=== PATIENT | male | born 1950 | race Caucasian/White ===

== ENCOUNTER → 2017-07-30 13:56 | Outpatient (POV) | payer MEDICARE, SELFPAY | PROVIDERS: PCP Family Medicine; Visit Provider Internal Medicine | DX: Z00.00 Encounter for general adult medical examination without abnormal findings (principal) ==

== ENCOUNTER → 2018-01-07 14:51 | Outpatient (POV) | payer MEDICARE, SELFPAY | PROVIDERS: PCP Family Medicine; Visit Provider Internal Medicine | DX: Z00.00 Encounter for general adult medical examination without abnormal findings (principal) ==

== ENCOUNTER → 2018-01-15 13:01 | Outpatient (CLI) | payer MEDICARE, SELFPAY ==
--- NOTE | 2018-01-15 | US_ITS ---
US Arterial Ankle Brachial Ind HISTORY: Claudication, diabetes, hypertension, short of breath, previous smoker. Bilateral claudication. No rest pain. TECHNIQUE: Segmental pressures obtained of both right and left leg. These are compared to brachial blood pressure to yield index at each level sampled including summary ISIDRO. The data sheets from the procedure are available in PACS FINDINGS Rest study only performed today No prior studies available for comparison. Blood pressures reported are in millimeters mercury. ========= RIGHT LEG ISIDRO = 1.0. RIGHT TBI = 1.2 Brachial BP: 131 Thigh BP: BP 137. Index 1.05 Calf BP: BP 131 with index 1.0 Ankle PT: BP 135 with index 1.03 Ankle DP : BP 138 with index 1.05 Digit =BP 160 with index 1.24 ========= LEFT LEG ISIDRO = 1.1 Left TBI = 1.0 Brachial BPD: 128 Thigh BP: BP 136 with index 1.04 Calf BP: AP 123 with index 0.94 Ankle PT:BP 139 with index 1.06 Ankle DP: BP 142 with index 1.08 Digit = BP 1:30 with index 0.99 Pulses and waveforms: Normal bilateral IMPRESSION: Pulses and waveforms: Normal bilateral RIGHT LEG ISIDRO = 1.0. Right TBI = 1.2 LEFT LEG ISIDRO = 1.1 Left TBI = 1.0
--- NOTE | 2018-01-15 | CA_ITS ---
PROCEDURE: 2-D M-mode and color Doppler study INDICATIONS FOR THE TEST: Chest pain COPDX Heart Murmur Tobacco Smoking Palpitations Fatigue Syncope Edema HypertensionXDiabetes MellitusX Rheumatic Fever SOBXDOEXObesityXHyperlipidemia Family History HD Additional History PHTN,CAD,АНДРЕЙ,ABN EKG TDS OBESITY/COPD PATIENT INFORMATION HEIGHT: 72 WEIGHT:284 GENDER: Male B/P:133/79 2-D/M-MODE INTERPRETATION: 2-D MEASUREMENTS OBSERVED VALUES IN CMS Right Ventricular Dimension (RVDd) 3.0 Interventricular Septum (Thickness)(IVsd) .8 Left Ventricular Internal Dimensions(LVIDd) 5.8 Left Ventricular Posterior Wall (Thickness)(LVPWd) .8 Aortic Root 4.0 Aortic Cusp Separation 2.0 Left Atrial Dimensions (LAD) 3.1 2D 1. Left atrium is qualitatively mildly enlarged, left ventricle is normal size, there is no concentric left ventricular hypertrophy, visually estimated ejection fraction 55% with no obvious regional wall motion abnormality. 2. The right atrium and right ventricle are mildly enlarged with normal contractility. 3. The aortic valve is thickened and calcified leaflet continue to display mobility. 4. The mitral and tricuspid valve leaflets are minimally thickened. 5. The pulmonic valve is poorly visualized. 6. No significant pericardial effusion noted. DOPPLER INTERROGATION: Doppler interrogation of the aortic, mitral and tricuspid valvular presence of mild mitral and tricuspid regurgitation, tricuspid and jet velocity is insufficient for acquisition of the right ventricular systolic pressure, grade 1 diastolic dysfunction seen without tissue Doppler evidence of raised left atrial pressure. CONCLUSION: 1. Mild biatrial enlargement, normal left ventricular size, visually estimated ejection fraction of 55% with no obvious regional wall motion abnormality, grade 1 diastolic dysfunction seen without tissue Doppler evidence of raised left atrial pressure. 2. Mildly enlarged right ventricle with normal contractility. 3. Mild mitral and tricuspid regurgitation. 4. No significant pericardial effusion noted.
--- NOTE | 2018-01-15 | AS_ITS ---
Arterial Exam Indications: Claudication 443.9. IMPRESSIONS 1. No evidence of arterial insufficiency at rest involving the left lower extremity 2. No evidence of arterial insufficiency at rest involving the right lower extremity Bilateral lower extremity arterial duplex. Duplex scan and ankle-brachial indices. Height: Height: 182.9cm. Height: 72in. Weight: Weight: 128.8kg. Weight: 283.4lb. Body mass index: BMI: 38.5kg/m^2. Body surface area: BSA: 2.61m^2. Location: Vascular laboratory. Patient status: Outpatient. Tables: Arterial flow: + +--------+--------+ + Location V sys V ed Flow analysis + +--------+--------+ + Right common femoral 112cm/s 17.3cm/s Triphasic + +--------+--------+ + Right deep femoral - proximal 54.5cm/s -------- Biphasic + +--------+--------+ + Right femoral - proximal 108cm/s 14.9cm/s Triphasic + +--------+--------+ + Right femoral - mid 93.5cm/s -------- Triphasic + +--------+--------+ + Right femoral - distal 96.6cm/s -------- Triphasic + +--------+--------+ + Right popliteal - proximal 52.2cm/s -------- Biphasic + +--------+--------+ + Right popliteal - distal 93.6cm/s -------- Biphasic + +--------+--------+ + Right posterior tibial - proximal 44cm/s -------- Biphasic + +--------+--------+ + Right posterior tibial - mid 107cm/s -------- Biphasic + +--------+--------+ + Right posterior tibial - distal 123cm/s 17.3cm/s Triphasic + +--------+--------+ + Right peroneal - mid 62.9cm/s 43.2cm/s Biphasic + +--------+--------+ + Right peroneal - distal 70.7cm/s -------- Biphasic + +--------+--------+ + Left common femoral 128cm/s 16.4cm/s Biphasic + +--------+--------+ + Left deep femoral - proximal 75.1cm/s -------- Biphasic + +--------+--------+ + Left femoral - proximal 90.8cm/s 14cm/s Biphasic + +--------+--------+ + Left femoral - mid 112cm/s -------- Biphasic + +--------+--------+ + Left femoral - distal 102cm/s -------- Biphasic + +--------+--------+ + Left popliteal - proximal 77.6cm/s -------- Biphasic + +--------+--------+ + Left popliteal - distal 81.5cm/s -------- Biphasic + +--------+--------+ + Left posterior tibial - proximal 57.6cm/s -------- Biphasic + +--------+--------+ + Left posterior tibial - mid 83.5cm/s -------- Biphasic + +--------+--------+ + Left posterior tibial - distal 91.3c
== END ==
PROVIDERS: PCP Family Medicine; Visit Provider Internal Medicine
DX: R06.02 Shortness of breath (principal); I73.9 Peripheral vascular disease, unspecified; M79.606 Pain in leg, unspecified; G47.30 Sleep apnea, unspecified
CPT/HCPCS: 93306; 93922; 93925

== ENCOUNTER 2018-02-11 08:40 | Outpatient (RCR) | payer MEDICARE, SELFPAY | END 2018-04-18 15:26 | disposition home or self-care (01) | LOC: PT 08:40 | PROVIDERS: PCP Family Medicine; Visit Provider Family Medicine | DX: J44.9 Chronic obstructive pulmonary disease, unspecified (principal); R06.00 Dyspnea, unspecified | CPT/HCPCS: G0424 ==

== ENCOUNTER → 2018-04-15 14:11 | Outpatient (POV) | payer MEDICARE, SELFPAY | PROVIDERS: PCP Family Medicine; Visit Provider Internal Medicine | DX: Z00.00 Encounter for general adult medical examination without abnormal findings (principal) ==

== ENCOUNTER → 2018-05-12 12:55 | Outpatient (CLI) | payer MEDICARE, SELFPAY ==
--- NOTE | 2018-05-12 12:57 | CT_ITS ---
CT lung screening EXAM: CT LUNG LOW DOSE WO CONTRAST HISTORY: 50 pack-year smoking history asymptomatic for lung cancer ITS.REASON: COPD, SOB, HX TOBACCO USE ORDERING PHYSICIAN: Michael Hurst MD PATIENT AGE: 68 years COMPARISON: 05/02/2017 TECHNIQUE: The exam was performed on a GE Light Speed [address] scanner using 2.90 mGy CTDI. A low dose helical CT CHEST was performed on a multi-detector scanner. All CT scans at the facility use one or more dose reduction, viz: automated exposure control, ma/kV adjustment per patient size (including targeted exams where dose is matched to indication, i.e. head), or iterative reconstruction technique. The LDCT was performed in a facility that meets the criteria for the screening program. Data regarding this exam was submitted to ACR which is an approved registry. The order for this exam indicates that it came as a result of a lung cancer screening counseling shard decision-making visit that included all the elements required of such a visit including smoking cessation. The radiologist interpreting this exam meets the CMS criteria for the LDCT lung cancer screening program. The exam is reported using the Lung-RADS classification scale and reported to the ACR registry. NOTE: This study was performed for the specific purposes of lung cancer screening and is not an alternative to diagnostic chest CT. RADIATION DOSE: CTDI vol(CT dose Index-volume) = 2.90mG DLP (Dose Length Product) = 108.38 mGcm FINDINGS: Mild centrilobular emphysematous changes are present. There is bilateral enlargement of the thyroid gland with narrowing of the trachea. The tracheal narrowing is slightly greater than when compared to the previous study. There is diffuse coronary artery calcification. There are a few scattered small nodular opacities which are calcified and are stable. A small parenchymal opacity is present in the right lung base at 5 mm unchanged IMPRESSION: 1. Lung RADS Category: 2, benign 2. Other findings: Enlarged thyroid gland with narrowing of the trachea slightly greater compared to the previous exam Coronary artery calcifications. Centrilobular emphysema RECOMMENDATIONS: 12 month LDCT follow-up
== END ==
PROVIDERS: PCP Family Medicine; Visit Provider Internal Medicine
DX: Z12.2 Encounter for screening for malignant neoplasm of respiratory organs (principal); Z87.891 Personal history of nicotine dependence

== ENCOUNTER → 2018-10-21 14:32 | Outpatient (POV) | payer MEDICARE, SELFPAY | PROVIDERS: Visit Provider Internal Medicine | DX: Z00.00 Encounter for general adult medical examination without abnormal findings (principal) ==

== ENCOUNTER → 2018-12-15 13:23 | Outpatient (CLI) | payer MEDICARE, SELFPAY ==
--- NOTE | 2018-12-15 13:34 | XR_ITS ---
EXAM: XR thoracic spine 3V HISTORY: Back pain ITS.REASON: LOW BACK PAIN Comparison: None FINDINGS: Normal alignment. No fracture or dislocation. There are mild degenerative changes in the midthoracic spine not significant changed from 11-17. IMPRESSION: Degenerative changes, no acute finding
--- NOTE | 2018-12-15 13:34 | XR_ITS ---
EXAM: XR lumbar spine min 4V HISTORY: ITS.REASON: LOW BACK PAIN ORDERING PHYSICIAN: Agus Moore MD PATIENT AGE: 68 years COMPARISON: None FINDINGS: Normal alignment. No fracture or dislocation. Osteophyte is present along the anterior aspect of L3-L4 incidental vascular calcifications. There are mild facet hypertrophic changes at L4-L5 and L5-S1. IMPRESSION: Degenerative changes, no acute finding.
== END ==
PROVIDERS: PCP Family Medicine; Visit Provider Family Medicine
DX: M54.6 Pain in thoracic spine (principal); M54.5 Low back pain
CPT/HCPCS: 72072; 72110

== ENCOUNTER → 2018-12-23 14:14 | Outpatient (POV) | payer MEDICARE, SELFPAY | PROVIDERS: Visit Provider Dermatology | DX: Z00.00 Encounter for general adult medical examination without abnormal findings (principal) ==

== ENCOUNTER → 2018-12-31 14:22 | Outpatient (CLI) | payer MEDICARE, SELFPAY ==
--- NOTE | 2018-12-31 14:23 | CA_ITS ---
PROCEDURE: 2-D M-mode and color Doppler study INDICATIONS FOR THE TEST: Chest pain COPD+ Heart Murmur Tobacco Smoking Palpitations Fatigue Syncope Edema+ Hypertension+Diabetes Mellitus+ Rheumatic Fever SOB+EWING+Obesity+Hyperlipidemia+ Family History HD Additional History PHTN, CAD, АНДРЕЙ, ABN EKG, GERD PATIENT INFORMATION HEIGHT: 72 WEIGHT:290 GENDER: Male B/P:104/62 2-D/M-MODE INTERPRETATION: 2-D MEASUREMENTS OBSERVED VALUES IN CMS Right Ventricular Dimension (RVDd) Interventricular Septum (Thickness)(IVsd) Left Ventricular Internal Dimensions(LVIDd) Left Ventricular Posterior Wall (Thickness)(LVPWd) Aortic Root 3.8 Aortic Cusp Separation 2.0 Left Atrial Dimensions (LAD) 3.6 2D 1. This is technically very difficult study because of the patient's factor and poor acoustic windows, repeat study with Definity contrast is recommended. 2. The left atrium is mildly enlarged, left ventricle is mildly dilated, visually estimated ejection fraction probably 40-45%, there appears to be moderate hypokinesis involving the basal septum inferior basal and posterior basal wall. A repeat study with Definity contrast is recommended for accurate assessment. 3. The right atrium and right ventricle are mildly enlarged with normal contractility. 4. The aortic valve is thickened and calcified leaflet continue to display mobility. 5. The pulmonic valve is poorly visualized. 6. No significant pericardial effusion noted. DOPPLER INTERROGATION: Doppler interrogation of the aortic, mitral and tricuspid valvular presence of mild mitral and tricuspid regurgitation, tricuspid regurgitation jet velocity is inadequate for acquisition of the right ventricular systolic pressure, diastolic parameters are inconclusive, inferior vena cava is not well visualized. CONCLUSION: 1. Technically very difficult study because of the patient's factors and poor acoustic windows, repeat study with definitely contrast is recommended. 2. Mildly enlarged left atrium, mildly dilated left ventricle, visually estimated ejection fraction probably 40-45%, with segmental wall motion abnormality described above, a repeat study with definitely contrast is recommended for accurate assessment. 3. Mild mitral and tricuspid regurgitation, tricuspid regurgitation jet velocity is inadequate for calculation of the right ventricular systolic pressure, diastolic parameters are inconclusive. 4. No significant pericardial effusion noted.
--- NOTE | 2018-12-31 14:23 | CI_ITS ---
Cerebrovascular Exam Indications: 785.9 Bruit. IMPRESSIONS 1. The bilateral vertebral arteries are patent with normal antegrade flow. 2. Study suggests less than 20% stenosis involving the right internal carotid artery and the left internal carotid artery. History: Coronary artery disease. Risk factors: Hypertension. Diabetes mellitus. Carotid duplex study. Complete study and Doppler flow study including spectral analysis, color and ball scale imaging. Location: Vascular laboratory. Patient status: Outpatient. Tables: Arterial flow: + +--------+--------+ Location V sys V ed + +--------+--------+ Right CCA - proximal 127cm/s 18.1cm/s + +--------+--------+ Right CCA - distal 106cm/s 20.4cm/s + +--------+--------+ Right ECA 167cm/s -------- + +--------+--------+ Right ICA - proximal 72.2cm/s 12.7cm/s + +--------+--------+ Right ICA - mid 51.5cm/s 13.7cm/s + +--------+--------+ Right ICA - distal 61.5cm/s 18.1cm/s + +--------+--------+ Right vertebral 48.9cm/s -------- + +--------+--------+ Left CCA - proximal 158cm/s 25.3cm/s + +--------+--------+ Left CCA - distal 123cm/s 24.4cm/s + +--------+--------+ Left ECA 108cm/s -------- + +--------+--------+ Left ICA - proximal 43.7cm/s 10cm/s + +--------+--------+ Left ICA - mid 73.2cm/s 19.6cm/s + +--------+--------+ Left ICA - distal 81.1cm/s 23.2cm/s + +--------+--------+ Left vertebral 64cm/s -------- + +--------+--------+ Velocity ratios: + + + + + + Right, V sys Right, V ed Left, V sys Left, V ed + + + + + + Max ICA/dist CCA 0.68 0.89 0.66 0.95 + + + + + + (Report amended ) Electronically signed by: cO Mckeon [id number]
== END ==
PROVIDERS: PCP Family Medicine; Visit Provider Physician Assistant
DX: I25.10 Atherosclerotic heart disease of native coronary artery without angina pectoris; R06.00 Dyspnea, unspecified; R09.89 Other specified symptoms and signs involving the circulatory and respiratory systems; E11.9 Type 2 diabetes mellitus without complications; E66.9 Obesity, unspecified; G47.33 Obstructive sleep apnea (adult) (pediatric); I10 Essential (primary) hypertension; I27.20 Pulmonary hypertension, unspecified; J44.9 Chronic obstructive pulmonary disease, unspecified; Z79.84 Long term (current) use of oral hypoglycemic drugs
CPT/HCPCS: 93306; 93880

== ENCOUNTER → 2019-01-08 13:42 | Outpatient (CLI) | payer MEDICARE, SELFPAY | PROVIDERS: Visit Provider Podiatrist | DX: L60.8 Other nail disorders (principal) | CPT/HCPCS: 87102; 87206; 87220 ==

== ENCOUNTER → 2019-02-02 09:58 | Outpatient (CLI) | payer MEDICARE, SELFPAY ==
[2019-02-02 10:40] VITALS: PULSE 78; PULSE 84
== END ==
PROVIDERS: PCP Family Medicine; Visit Provider Internal Medicine
DX: J44.9 Chronic obstructive pulmonary disease, unspecified (principal); R06.02 Shortness of breath
CPT/HCPCS: 94060; 94618; 94640; 94726; 94729

== ENCOUNTER → 2019-02-03 16:05 | Outpatient (POV) | payer MEDICARE, SELFPAY | PROVIDERS: Visit Provider Internal Medicine | DX: Z00.00 Encounter for general adult medical examination without abnormal findings (principal) ==

== ENCOUNTER 2019-03-13 18:56 | Observation (INO) ==
[2019-03-13 19:12] LABS: Basophils # 0.1 K/mm3 (0-0.2); Basophils % 0.7 % (0.1-2.0); Eosinophils # 0.2 K/mm3 (0.0-0.4); Eosinophils % 1.5 % (0.1-12.0); Hemoglobin 14.1 g/dL (14.1-18.0); Lymphocytes # 1.6 K/mm3 (0.7-4.5); Lymphocytes % 12.7 % (10-50); Mean Corpuscular HGB Conc 30.6 g/dL (31.8-35.4); Mean Corpuscular Volume 88.3 fl (80-94); Monocytes # 0.7 K/mm3 (0.1-1.0); Monocytes % 5.4 % (1.7-9.3); Neutrophils # 10.1 K/mm3 (1.8-7.8); Neutrophils % 79.7 % (37.0-80.0); Platelet Count 305 K/mm3 (142-424); Red Blood Count 5.21 M/mm3 (4.60-6.20); Red Cell Distribution Width 14.4 % (11.5-17.5); White Blood Count 12.6 K/mm3 (4.8-10.8)
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
[2019-03-13 19:26] LABS: Albumin Level 3.5 gm/dL (3.4-5.0); Albumin/Globulin Ratio 0.7 (1.1-1.8); Anion Gap 14.2 mEq/L (5-15); Bilirubin,Total 0.3 mg/dL (0.2-1.0); Calcium 9.6 mg/dL (8.5-10.1); Globulin 4.9 gm/dl (1.3-3.2); Total Protein,Serum 8.4 gm/dL (6.4-8.2)
[2019-03-13 20:22] LABS: Microscopic, Urine URINE MICROSCOPIC (MICROSCOPIC)
[2019-03-13 20:24] LABS: Appearance,Urine CLEAR (Clear); Bilirubin,Urine Negative (Negative); Blood, Urine Negative (Negative); Color,Urine YELLOW (Yellow); Glucose,Urine (UA) 3+ (Negative); Ketones,Urine Negative (Negative); Leukocyte Esterase,Urine Negative (Negative); Protein,Urine Negative (Negative); Urobilinogen,Urine 0.2 EU/dl (0.2)
[2019-03-13 20:27] LABS: Amorphous Sediment,Urine Trace /lpf; WBC,Urine Occasional #/hpf (0-3)
[2019-03-14 07:10] LABS: Basophils # 0.1 K/mm3 (0-0.2); Basophils % 0.6 % (0.1-2.0); Eosinophils # 0.2 K/mm3 (0.0-0.4); Eosinophils % 1.2 % (0.1-12.0); Hematocrit 41.4 % (42.0-52.0); Hemoglobin 12.8 g/dL (14.1-18.0); Lymphocytes # 1.5 K/mm3 (0.7-4.5); Lymphocytes % 12.8 % (10-50); Mean Corpuscular HGB Conc 30.9 g/dL (31.8-35.4); Mean Corpuscular Volume 89.6 fl (80-94); Mean Platelet Volume 8.2 fl (7.4-10.4); Monocytes # 1.5 K/mm3 (0.1-1.0); Neutrophils # 8.5 K/mm3 (1.8-7.8); Neutrophils % 72.3 % (37.0-80.0); Platelet Count 232 K/mm3 (142-424); Red Blood Count 4.62 M/mm3 (4.60-6.20); Red Cell Distribution Width 14.3 % (11.5-17.5); White Blood Count 11.8 K/mm3 (4.8-10.8)
[2019-03-14 07:18] LABS: Anion Gap 12.3 mEq/L (5-15); Calcium 8.7 mg/dL (8.5-10.1)
--- NOTE | 2019-03-14 09:06 | H&P/Discharge Summary ---
General - General Admission date:: 03/13/19 Discharge date: 03/14/19 [facility] History Medical History: Reports:: Chronic Obstructive Pulmonary Disease (COPD), Diabetes Mellitus Type 2, Gastroesophageal Reflux Disease(GERD), Hypertension Denies:: Cancer, Diabetes Mellitus Type 1, Internal Pacemaker, MRSA, Seizures *Have you ever received a pneumonia vaccine?: Yes *Have you received a flu vaccine this season?: Yes Laterality Cases: Right: Total Knee Replacement, Bilateral: Tonsillectomy Other Surgeries: Yes: Angiogram, Cardiac Catheterization, Hernia Repair. No: Pacemaker Amputation: No Fractures: No - *Social History Educational Level: Completed High School Smoking Status: Former smoker Tobacco Type: cigarettes # Packs/Day (cigarettes): 1 #Yrs smoked (if former smoker): 45 Alcohol Intake: never Alcohol Intake Frequency:: other Substance Use Type: denies use *Occupational Status:: retired Housing: house Household Members: spouse *Travel in the last 8 weeks: None Family Hx:: Diabetes, Hypertension Exam Vital signs and Labs for Last 24 Hours: Temp Pulse Resp BP Pulse Ox 97.7 F 73 18 124/78 94 L 03/14/19 08:00 03/14/19 08:00 03/14/19 08:00 03/14/19 08:00 03/14/19 08:00 Laboratory Results - last 24 hr 03/13/19 19:04: WBC 12.6 H, RBC 5.21, Hgb 14.1, Hct 46.0, MCV 88.3, MCH 27.0, MCHC 30.6 L, RDW 14.4, Plt Count 305, MPV 7.0 L, Neut % (Auto) 79.7, Lymph % (Auto) 12.7, Gray % (Auto) 5.4, Eos % (Auto) 1.5, Baso % (Auto) 0.7, Neut # (Auto) 10.1 H, Lymph # (Auto) 1.6, Gray # (Auto) 0.7, Eos # (Auto) 0.2, Baso # (Auto) 0.1 03/13/19 19:04: Sodium 134 L, Potassium 5.2 H, Chloride 98, Carbon Dioxide 27, Anion Gap 14.2, BUN 29 H, Creatinine 1.30, Estimated Creat Clear 97, Estimated GFR 55 L, Est GFR ( Amer) 66, Glucose 318 H, Calcium 9.6, Total Bilirubin 0.3, AST 39 H, ALT 51, Alkaline Phosphatase 73, Total Protein 8.4 H, Albumin 3.5, Globulin 4.9 H, Albumin/Globulin Ratio 0.7 L 03/13/19 19:25: Urine Color Yellow, Urine Appearance Clear, Urine pH 6.0, Ur Specific [place] 1.020, Urine Protein Negative, Urine Glucose (UA) 3+, Urine Ketones Negative, Urine Blood Negative, Urine Nitrate Negative, Urine Bilirubin Negative, Urine Urobilinogen 0.2, Ur Leukocyte Esterase Negative, Urine WBC Occasional, Amorphous Sediment Trace 03/13/19 22:52: POC Glucose 280 H 03/14/19 06:32: POC Glucose 323 H* 03/14/19 06:35: WBC 11.8 H, RBC 4.62, Hgb 12.8 L, Hct 41.4 L, MCV 89.6, MCH 27.7, MCHC 30.9 L, RDW 14.3, Plt Count 232, MPV 8.2, Neut % (Auto) 72.3, Lymph % (Auto) 12.8, Gray % (Auto) 13.0 H, Eos % (Auto) 1.2, Baso % (Auto) 0.6, Neut # (Auto) 8.5 H, Lymph # (Auto) 1.5, Gray # (Auto) 1.5 H, Eos # (Auto) 0.2, Baso # (Auto) 0.1 03/14/19 06:35: Sodium 133 L, Potassium 5.3 H, Chloride 99, Carbon Dioxide 27, Anion Gap 12.3, BUN 29 H, Creatinine 1.21, Estimated Creat Clear 103, Estimated GFR 59, Est GFR ( Amer) 72, Glucose 325 H, Calcium 8.7 I & O for Last 24 hours: Intake & Output 03/11/19 03/12/19 03/13/19 03/14/19 11:59 11:59 11:59 11:59 Intake Total 1027 / 1027 Output Total 550 / 550 Balance 477 / 477 Weight 281 lb 7 oz Results Labs on day of discharge: Labs from last 24 hours 03/14/19 03/14/19 03/14/19 06:35 06:35 06:32 WBC 11.8 H RBC 4.62 Hgb 12.8 L Hct 41.4 L MCV 89.6 MCH 27.7 MCHC 30.9 L RDW 14.3 Plt Count 232 MPV 8.2 Neut % (Auto) 72.3 Lymph % (Auto) 12.8 Gray % (Auto) 13.0 H Eos % (Auto) 1.2 Baso % (Auto) 0.6 Neut # (Auto) 8.5 H Lymph # (Auto) 1.5 Gray # (Auto) 1.5 H Eos # (Auto) 0.2 Baso # (Auto) 0.1 Sodium 133 L Potassium 5.3 H Chloride 99 Carbon Dioxide 27 Anion Gap 12.3 BUN 29 H Creatinine 1.21 Estimated Creat Clear 103 Estimated GFR 59 Est GFR ( Amer) 72 Glucose 325 H POC Glucose 323 H* Calcium 8.7 Total Bilirubin AST ALT Alkaline Phosphatase Total Protein Albumin Globulin Albumin/Globulin Ratio Urine Color Urine Appearance Urine pH Ur Specific [place] Urine Protein Urine Glucose (UA) Urine Ketones Urine Blood Urine Nitrate Urine Bilirubin Urine Urobilinogen Ur Leukocyte Esterase Urine WBC Amorphous Sediment 03/13/19 03/13/19 03/13/19 22:52 19:25 19:04 WBC RBC Hgb Hct MCV MCH MCHC RDW Plt Count MPV Neut % (Auto) Lymph % (Auto) Gray % (Auto) Eos % (Auto) Baso % (Auto) Neut # (Auto) Lymph # (Auto) Gray # (Auto) Eos # (Auto) Baso # (Auto) Sodium 134 L Potassium 5.2 H Chloride 98 Carbon Dioxide 27 Anion Gap 14.2 BUN 29 H Creatinine 1.30 Estimated Creat Clear 97 Estimated GFR 55 L Est GFR ( Amer) 66 Glucose 318 H POC Glucose 280 H Calcium 9.6 Total Bilirubin 0.3 AST 39 H ALT 51 Alkaline Phosphatase 73 Total Protein 8.4 H Albumin 3.5 Globulin 4.9 H Albumin/Globulin Ratio 0.7 L Urine Color Yellow Urine Appearance Clear Urine pH 6.0 Ur Specific [place] 1.020 Urine Protein Negative Urine Glucose (UA) 3+ Urine Ketones Negative Urine Blood Negative Urine Nitrate Negative Urine Bilirubin Negative Urine Urobilinogen 0.2 Ur Leukocyte Esterase Negative Urine WBC Occasional Amorphous Sediment Trace 03/13/19 19:04 WBC 12.6 H RBC 5.21 Hgb 14.1 Hct 46.0 MCV 88.3 MCH 27.0 MCHC 30.6 L RDW 14.4 Plt Count 305 MPV 7.0 L Neut % (Auto) 79.7 Lymph % (Auto) 12.7 Gray % (Auto) 5.4 Eos % (Auto) 1.5 Baso % (Auto) 0.7 Neut # (Auto) 10.1 H Lymph # (Auto) 1.6 Gray # (Auto) 0.7 Eos # (Auto) 0.2 Baso # (Auto) 0.1 Sodium Potassium Chloride Carbon Dioxide Anion Gap BUN Creatinine Estimated Creat Clear Estimated GFR Est GFR ( Amer) Glucose POC Glucose Calcium Total Bilirubin AST ALT Alkaline Phosphatase Total Protein Albumin Globulin Albumin/Globulin Ratio Urine Color Urine Appearance Urine pH Ur Specific [place] Urine Protein Urine Glucose (UA) Urine Ketones Urine Blood Urine Nitrate Urine Bilirubin Urine Urobilinogen Ur Leukocyte Esterase Urine WBC Amorphous Sediment Discharge Plan - Patient Discharge Instructions ACTIVITY: Limited activity DIET: continue same diet Patient Instructions: Contusion, Ankle Sprain, DI for Ankle Sprain - Follow up Plan Follow up with: Agus Moore MD [Primary Care Provider] - 03/16/19 Disposition: Home, Self-Retirement Medications: Home Medications Medication Instructions Recorded Confirmed Type budesonide 0.25 mg/2 mL suspension 0.25 mg INHALATION Q12H 08/29/17 03/13/19 History for nebulization metformin 1,000 mg tablet 1,000 mg PO BID 08/29/17 03/13/19 History aspirin 325 mg tablet 325 mg PO DAILY tab 01/14/18 03/13/19 History allopurinol 100 mg tablet 100 mg PO DAILY 10/16/18 03/13/19 History gabapentin 300 mg capsule 300 mg PO TID cap 01/08/19 03/13/19 History insulin human U-100 NPH-regulr 80 unit SUB-Q BID ml 01/08/19 03/13/19 History 70-30 mix 100 unit/mL subcutaneous susp Formoterol Fumarate [Perforomist] 20 mcg IH BID 03/13/19 03/13/19 History Furosemide [Furosemide 80mg Tab] 40 mg PO BID 03/13/19 03/13/19 History Lisinopril [Prinivil 10mg Tablet] 10 mg PO DAILY 03/13/19 03/14/19 History Spironolactone 50 mg PO DAILY 03/13/19 03/13/19 History Indomethacin 25 mg PO Q6H PRN #30 cap 03/14/19 Rx Oxycodone HCl [Oxycodone (IR) 10mg 10 mg PO Q6H PRN #30 tab 03/14/19 Rx Tab] Prescriptions/Medication Reconciliation: New Indomethacin 25 mg PO Q6H PRN #30 cap PRN Reason: Moderate To Severe Pain Oxycodone HCl [Oxycodone (IR) 10mg Tab] 10 mg PO Q6H PRN #30 tab PRN Reason: Moderate To Severe Pain Continued budesonide 0.25 mg/2 mL suspension for nebulization 0.25 mg INHALATION Q12H aspirin 325 mg tablet 325 mg PO DAILY tab allopurinol 100 mg tablet 100 mg PO DAILY insulin human U-100 NPH-regulr 70-30 mix 100 unit/mL subcutaneous susp 80 unit SUB-Q BID ml metformin 1,000 mg tablet 1,000 mg PO BID Spironolactone 50 mg PO DAILY Furosemide [Furosemide 80mg Tab] 40 mg PO BID Formoterol Fumarate [Perforomist] 20 mcg IH BID No Action gabapentin 300 mg capsule 300 mg PO TID cap Lisinopril [Prinivil 10mg Tablet] 10 mg PO DAILY - Problem Reconciliation Problems Reviewed?: Yes
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
== END 2019-03-14 10:02 | disposition home or self-care (01) ==
LOC: ER 18:56 → 2ND 18:56
PROVIDERS: ADMIT Family Medicine; ATTEND Family Medicine
CPT/HCPCS: 70450; 71010; 71045; 71260; 71275; 72125; 72131; 73610; 74177; 80048; 80053; 81001; 82962; 85025; 90471; 90715; 96374; 96375; 99284; G0378; J2405; Q9967

== ENCOUNTER → 2019-03-19 19:22 | Outpatient (CLI) | payer MEDICARE, SELFPAY | PROVIDERS: Visit Provider Podiatrist | DX: L60.0 Ingrowing nail (principal); E11.9 Type 2 diabetes mellitus without complications; Z79.4 Long term (current) use of insulin | CPT/HCPCS: 87070; 87077; 87186; 87205 ==

== ENCOUNTER → 2019-06-19 14:31 | Outpatient (CLI) | payer MEDICARE, SELFPAY | PROVIDERS: PCP Family Medicine; Visit Provider Internal Medicine | DX: J44.9 Chronic obstructive pulmonary disease, unspecified (principal) ==

== ENCOUNTER → 2019-12-03 11:43 | Outpatient (CLI) | payer MEDICARE, SELFPAY ==
--- NOTE | 2019-12-03 | XR_ITS ---
PROCEDURE: XR CHEST 2V CLINICAL HISTORY: Shortness of air, COPD COMPARISON: CXR CHEST(2 VIEWS-NOT PORTABLE) from 02/11/2017 CXR CHEST(2 VIEWS-NOT PORTABLE) from 05/02/2017 XR CHEST PORTABLE from 03/13/2019 CT CHEST W CON from 03/13/2019 FINDINGS: The cardiomediastinal silhouette and pulmonary vascularity are within normal limits. There are chronic changes in the lung bases with hyperinflation consistent with COPD. No acute bony abnormalities. IMPRESSION: No change with no acute finding Dictated by: Oc Mckeon MD 12/03/2019 14:33 Electronically signed by Oc Mckeon MD in [place] 12/03/2019 14:33
--- NOTE | 2019-12-03 12:30 | ECG_ITS ---
APPROVED REPORT Exam: Resting ECG HR:76 bpm ECG Measurements Heart Rate 76 AXES TX 154 P 79 QRSd 96 QRS 80 QT 416 T 74 QTc 468 <Conclusion> Normal sinus rhythm Normal ECG Electronically signed by : Robert Mckeon, 12/05/2019 14:17:18
[2019-12-03 14:44] LABS: Thyroid Stimulating Hormone 0.56 uIU/mL (0.465-4.68)
== END ==
LOC: RT 11:52 → RAD 11:59
PROVIDERS: PCP Family Medicine; Visit Provider Nurse Practitioner Family
DX: R06.00 Dyspnea, unspecified (principal); R06.02 Shortness of breath; J44.9 Chronic obstructive pulmonary disease, unspecified; Z79.899 Other long term (current) drug therapy
CPT/HCPCS: 36415; 71046; 84443; 93005

== ENCOUNTER → 2019-12-04 14:40 | Outpatient (CLI) | payer MEDICARE, SELFPAY | PROVIDERS: Visit Provider Nurse Practitioner Family | DX: J44.9 Chronic obstructive pulmonary disease, unspecified (principal); Z79.899 Other long term (current) drug therapy | CPT/HCPCS: 87070; 87077; 87205 ==

== ENCOUNTER → 2020-01-14 15:33 | Outpatient (CLI) | payer MEDICARE, SELFPAY ==
[2020-01-14 15:55] LABS: Basophils # 0.1 K/mm3 (0-0.2); Basophils % 0.9 % (0.1-2.0); Eosinophils # 0.3 K/mm3 (0.0-0.4); Eosinophils % 3.1 % (0.1-12.0); Hematocrit 43.3 % (42.0-52.0); Hemoglobin 13.9 g/dL (14.1-18.0); Lymphocytes # 1.5 K/mm3 (0.7-4.5); Lymphocytes % 13.4 % (10-50); Mean Corpuscular Hemoglobin 28.8 pg (27.0-31.2); Mean Platelet Volume 8.2 fl (7.4-10.4); Monocytes # 0.5 K/mm3 (0.1-1.0); Monocytes % 4.5 % (1.7-9.3); Neutrophils # 8.5 K/mm3 (1.8-7.8); Neutrophils % 78.1 % (37.0-80.0); Platelet Count 250 K/mm3 (142-424); Red Blood Count 4.81 M/mm3 (4.60-6.20); Red Cell Distribution Width 14.1 % (11.5-17.5); White Blood Count 10.9 K/mm3 (4.8-10.8)
[2020-01-14 16:28] LABS: Chloride 98 mmol/L (98-107); Potassium 4.8 mmoL/L (3.5-5.1); Sodium 135 mmol/L (136-145)
[2020-01-14 16:30] LABS: Blood Urea Nitrogen 21 mg/dl (9-20); Estimated Glomerular Filt Rate 83 ml/min (>60); GFR (African American) 101 ML/MIN (>60)
[2020-01-14 16:31] LABS: Alanine Aminotransferase 38 U/L (12-78); Albumin Level 3.7 g/dl (3.5-5.0); Albumin/Globulin Ratio 1.3 (1.1-1.8); Alkaline Phosphatase 64 U/L (38-126); Anion Gap 16.8 mEq/L (5-15); Aspartate Amino Transferase 37 U/L (17-59); Bilirubin,Total 0.4 mg/dl (0.2-1.3); Calcium 8.5 mg/dl (8.4-10.2); Carbon Dioxide 25 mmol/L (22.0-30.0); Globulin 2.9 g/dL (1.3-3.2); Total Protein,Serum 6.6 g/dl (6.3-8.2)
[2020-01-14 16:51] LABS: Glucose 400 mg/dl (74-100)
[2020-01-20 13:30] LABS: Immunoglobulin E, Total 6 IU/mL (6-495)
== END ==
PROVIDERS: Visit Provider Nurse Practitioner Family
DX: R06.00 Dyspnea, unspecified (principal); Z79.899 Other long term (current) drug therapy
CPT/HCPCS: 36415; 80053; 82785; 85025

== ENCOUNTER → 2020-02-05 14:28 | Outpatient (CLI) | payer MEDICARE, SELFPAY | PROVIDERS: PCP Family Medicine; Visit Provider Internal Medicine Pulmonary Disease | DX: J44.9 Chronic obstructive pulmonary disease, unspecified (principal) | CPT/HCPCS: 94060; 94726; 94729 ==

== ENCOUNTER → 2020-02-09 06:15 | Outpatient (CLI) | payer MEDICARE, SELFPAY ==
--- NOTE | 2020-02-09 06:16 | CA_ITS ---
APPROVED REPORT EXAM: Comprehensive 2D, Doppler, and color-flow Echocardiogram Contract Preparer: Estrellita Ornelas RDCS Ht: 6 ft 0 in Wt: 287lbs BSA: 2.48 BP: 127/59 mmHg Indications: CM,CAD,SOA,OBESITY,ABN EKG, 2D Dimensions LVOT 1.77 cm (M/F) 1.5-2.5 M-Mode Dimensions RVDd 3.24 cm (0.9-2.6) LVDd 6.38 cm (3.5-5.7) LVDs 4.46 cm (3.5-5.7) IVSd 0.70 cm (0.6-1.1) PWd 0.75 cm (0.6-1.1) EF (Teich) 56.30% FS 30.10% EDV (Teich) 207.00 mL ESV (Teich) 90.50 mL LV Diastology E/A Ratio 0.98 Aortic Valve LVOT Max 103.00 (70-110 cm/s) LVOT VTI 19.22 cm Mitral Valve MV A Velocity 59.00 (40-130 cm/s) Left Ventricle Left atrium is mildly enlarged, left ventricle is normal size, mild concentric left ventricular hypertrophy, visually estimated ejection fraction 55% with no regional wall motion abnormality, grade 1 diastolic dysfunction seen without tissue Doppler evidence of raise left atrial pressure. Right Ventricle Right atrium and right ventricular mildly enlarged with normal contractility. Aortic Valve Aortic valve is thickened and calcified without aortic stenosis, there is no significant aortic insufficiency. Mitral Valve Mitral valve leaflets are minimally thickened, there is mild mitral regurgitation. Tricuspid Valve Tricuspid valve is grossly normal, there is mild tricuspid regurgitation. Pulmonic Valve Pulmonic valve is poorly visualized. Great Vessels Aortic root is normal size. Pericardium No significant pericardial effusion noted. Conclusion 1. Mild biatrial enlargement, normal left ventricular size, mild concentric left ventricular hypertrophy, visually estimated ejection fraction of 55% with no regional wall motion abnormality, grade 1 diastolic dysfunction seen without tissue Doppler evidence of raise left atrial pressure. 2. Mildly enlarged right ventricle with normal contractility. 3. Mild mitral and tricuspid regurgitation. 4. No significant pericardial effusion noted. Electronically signed by : Lamberto Mckeon, 02/09/2020 18:47:40
--- NOTE | 2020-02-09 06:25 | CA_ITS ---
APPROVED REPORT Exam: Pharmacologic Technologist: Rosemary Bee Ht: 6 ft 0 in Wt: 286 lbs BSA: 2.48 m2 HR: 72 bpm BP: 122/57 mmHg Indications: Shortness of Air Medical History Medications: Lisinopril,,,,, Furosemide (LASIX),,,,, Aspirin,,,,, Metformin,,,,, Gabapentin,,,,, Allopurinol,,,,, INSULIN,,,,, Albuterol,,,,, SpirOnolactone,,,,, Tiotropium [place],,,,, Budesonide,,,,, Stress Test Details Test: LEXISCAN HR Resting HR: 79 bpm Max Heart Rate (APMHR): 149 bpm Max HR Achieved: 97 bpm Target HR (85% APMHR): 126 bpm % of APMHR: 65 Recovery HR: 80 bpm BP Resting BP: 122.0/57.0 mmHg Max BP: 122.0/57.0 mmHg Recovery BP: 120.0/54.0 mmHg ECG Clinical Exercise duration: 04:00 min Highest Stage Achieved: Exercise capacity: 1.0 METs Stress ECG Conclusion Resting ECG: Normal sinus rhythm Symptoms: Shortness of air, malaise. No chest pain. Arrhythmias/Ectopy: None ST-T Changes: No significant changes. Conclusion: Unremarkable Lexiscan stress. Myoview images reported separately. Electronically signed by : Lamberto Mckeon, 02/09/2020 19:31:12
--- NOTE | 2020-02-09 06:25 | NM_ITS ---
APPROVED REPORT Exam: Nuclear Stress Test Indication: SOB, Abnormal EKG, Obesity, HTN, DM, Former tobacco use, Family history Patient Location: Outpatient Stress Tech: Rosemary Bee MD Tech:Reanna Burnham, ARRT, RT (R)(N) Ht: 6 ft 0 in Wt: 286 lbs HR: 72 bpm BP: 122/57 mmHg BSA: 2.48 m2 History: SOB, Abnormal EKG, Obesity, HTN, DM, Former tobacco use, Family history Procedure: Patient received a 0.4 mg of intravenous Lexiscan, resting heart rate 72 bpm, resting blood pressure 122/57 mmHg, with Lexiscan maximum heart rate achived was 96 bpm which is Less than 85 % of the maximum predicted heart rate and blood pressure was 96/53 mmHg. With Lexiscan, patient denied any complaint of chest pain. Electrocardiogram Resting electrocardiogram showed sinus rhythm, with Lexiscan there is less than 1.[address] segment depression noted from the baseline EKG. The EKG portion of the Lexiscan is nondiagnostic. Cardiac Stress and Resting SPECT Images: Cardiac Stress and Resting SPECT images were obtained using technetium 99m Myoview 31.4 mCi stress and 10.58 mCi at rest. Gated SPECT for analysis of segmental wall motion and calculation of the ejection fraction also done. Cardiac stress and rest SPECT images show decreased tracer activity in the inferior and apical wall which improves on the resting images suggestive of reversible ischemia, computer derived ejection fraction is 47% with no regional wall motion abnormality, right ventricle is normal size and contractility. Conclusion: 1. The EKG portion of the Lexiscan Myoview is nondiagnostic. 2. Scintigraphic evidence of reversible ischemia involving the inferior and apical wall, computer derived ejection fraction is 47% with no regional wall motion abnormality, right ventricle is normal size and contractility. 3. Abnormal Lexiscan Myoview study. Electronically signed by : Lamberto Mckeon, 02/09/2020 19:34:51
--- NOTE | 2020-02-09 07:17 | HMH.ITSHM ---
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 []tiotropium spironolactone metformin LISINOPRIL INSULIN GABAPENTIN FUROSEMIDE BUDESONIDE ASA ALLOPURINOL ALBUTEROL PERFOROMIST
== END ==
PROVIDERS: PCP Family Medicine; Visit Provider Nurse Practitioner Family
DX: E11.69 Type 2 diabetes mellitus with other specified complication (principal); E66.9 Obesity, unspecified; G47.33 Obstructive sleep apnea (adult) (pediatric); I10 Essential (primary) hypertension; I25.10 Atherosclerotic heart disease of native coronary artery without angina pectoris; I27.20 Pulmonary hypertension, unspecified; J42 Unspecified chronic bronchitis; R06.09 Other forms of dyspnea; R60.9 Edema, unspecified; R94.31 Abnormal electrocardiogram [ECG] [EKG]; Z79.84 Long term (current) use of oral hypoglycemic drugs
CPT/HCPCS: 78452; 93017; 93306; A9502; J2785

== ENCOUNTER 2021-02-01 19:22 | Inpatient (IN) | payer MEDICARE, SELFPAY ==
[2021-02-01] VITALS (9 sets, daily range): BP systolic 143–171; BP diastolic 63–81; PULSE 90–111; RESP 19–29; TEMP 37.2–37.5; O2SAT 92–95; BMI 40.6; BMI 37.7
--- NOTE | 2021-02-01 18:56 | ECG_ITS ---
APPROVED REPORT Exam: Resting ECG HR:110 bpm ECG Measurements Heart Rate 110 AXES MT 132 P 77 QRSd 102 QRS 85 QT 388 T 62 QTc 525 Conclusion Sinus tachycardia Otherwise normal ECG Electronically signed by : Robert Mckeon MD 02/03/2021 11:39:11
--- NOTE | 2021-02-01 19:22 | XR_ITS ---
PROCEDURE INFORMATION: Exam: XR Chest Exam date and time: 02/01/2021 7:22 PM Age: 70 years old Clinical indication: Cough; Additional info: SOA, chest congestion TECHNIQUE: Imaging protocol: XR of the chest. Views: 4 or more views. COMPARISON: CT ANGIO CHEST PE PROTOCOL 02/01/2021 8:46 PM FINDINGS: Lungs: Interstitial coarsening with streaky basal airspace opacities. No lobar consolidation. Pleural spaces: Unremarkable. No pleural effusion. No pneumothorax. Heart/Mediastinum: Unremarkable. No cardiomegaly. Bones/joints: Degenerative changes of the shoulders. IMPRESSION: Interstitial coarsening with streaky basal airspace opacities which may be hypoventilatory however pneumonitis should be clinically excluded. .
--- NOTE | 2021-02-01 19:22 | CT_ITS ---
PROCEDURE INFORMATION: Exam: CTA Chest With Contrast Exam date and time: 02/01/2021 7:22 PM Age: 70 years old Clinical indication: Cough and shortness of breath; Patient HX: Covid positive; Additional info: SOA, chest congestion, increase o2 use TECHNIQUE: Imaging protocol: Computed tomographic angiography of the chest with contrast. 3D rendering (Not supervised by radiologist): MIP and/or 3D reconstructed images were created by the technologist. Radiation optimization: All CT scans at this facility use at least one of these dose optimization techniques: automated exposure control; mA and/or kV adjustment per patient size (includes targeted exams where dose is matched to clinical indication); or iterative reconstruction. Contrast material: ISO 370; Contrast volume: 70 ml; Contrast route: INTRAVENOUS (IV); COMPARISON: CT CHEST W CON 03/13/2019 8:39 PM FINDINGS: Pulmonary arteries: Evaluation of the pulmonary arteries is limited by contrast timing. Incomplete opacification of multiple lower lobe segmental and subsegmental branches bilaterally. Aorta: Atherosclerosis. No aortic aneurysm. No aortic dissection. Lungs: Bilateral emphysema. Streaky basilar airspace opacities. Pleural spaces: No pneumothorax. No pleural effusion. Heart: Coronary artery calcifications. No cardiomegaly. No pericardial effusion. Lymph nodes: No enlarged lymph nodes. Liver: Fatty liver. Gallbladder and bile ducts: Gallstones. Bones/joints: No acute fracture. Soft tissues: Heterogeneous hypodense right thyroid lesion measuring 2.4 cm with coarse calcification. Other findings: Examination is limited by motion. IMPRESSION: Limited evaluation demonstrating emphysema with incomplete opacification of lower lobe segmental and subsegmental pulmonary arteries which may be secondary to motion and contrast timing however can be seen with acute PE. Pulmonary opacities may be hypoventilatory or can be seen with pneumonitis or potentially developing infarct. Gallstones. Fatty liver. Right thyroid lesion for which nonemergent ultrasound is recommended for further evaluation.
[2021-02-01 19:29] LABS: ABG Base Excess -0.7 mmol/L (-2.4-2.3); ABG HCO3 24.1 mmhg (22.0-26.0); ABG Oxygen Saturation 91 % (90-100); ABG PCO2 40.1 mmhg (35.0-45.0); ABG PO2 61.1 mmhg (80-100); ABG TCO2 25.3 mmhg (23-27)
[2021-02-01 19:31] LABS: Allen's Test Acceptable; Source Right Radial
--- NOTE | 2021-02-01 19:36 | HMH.EDGENADL ---
ED Disposition Condition on Discharge: Fair - Critical Care Critical Care Time: No <ReganTereso - Last Filed: 02/01/21 19:44> <Eric Grullon - Last Filed: 02/01/21 22:14> Clinical Impression: Weakness, Multiple falls, COVID-19 Acute on chronic respiratory failure Qualifiers: Respiratory failure complication: hypoxia Qualified Code(s): J96.21 - Acute and chronic respiratory failure with hypoxia Disposition: Admitted As Inpatient Referrals: Agus Moore MD [Primary Care Provider] - Attestation: On 02/01/21, the high probability of a clinically significant, sudden or life threatening deterioration of the following system(s) required my full and direct attention, intervention and personal management. The time I documented below is in addition to time spent performing reported procedures but includes the following listed in this critical care notation. Medical Decision Making - Medical Records Medical records reviewed: Yes: I reviewed the patient's medical records. - Charles Inquiry Pt receiving controlled substance: No - ECG Data Tracing #1 I reviewed this ECG and interpreted as documented below: ECG initial impression date: 02/01/21 ECG initial impression time: 19:00 <ReganTereso - Last Filed: 02/01/21 19:44> - Lab Data Lab results reviewed: Yes: I reviewed the patient's lab results. Result diagrams: 02/01/21 19:05 02/01/21 19:05 - Radiology Data #1 Image(s): Chest, Pelvis, Knee Image Reviewed: Yes I have reviewed radiologist's interpretation Preliminary Findings: Abnormal, No Fracture Seen - CT Data CT Scan: Chest Time Received: 22:[address] Reviewed: Yes: I have viewed the radiologist's interpretation Preliminary Findings: Abnormal (see report ) - Physician Consults Physician Consulted: donald Reason -: Admission <Eric Grullon - Last Filed: 02/01/21 22:14> Vital Signs: 02/01/21 19:04 02/01/21 19:31 02/01/21 20:16 Temperature 99.5 F Temperature Source Oral Pulse Rate 109 H 99 H Pulse Rate [Right] 111 H Respiratory Rate 29 H 25 H 22 Blood Pressure 160/81 H 154/78 H Blood Pressure [Right Arm] 171/79 H Blood Pressure Mean [Right Arm] 109 Blood Pressure Source [Right Arm] Automatic Cuff 02 Sat by Pulse Oximetry 92 L 93 L 94 L Oxygen Delivery Method Nasal Cannula Oxygen Flow Rate (LPM) 6 02/01/21 20:31 02/01/21 21:30 Temperature Temperature Source Pulse Rate 100 H 98 H Pulse Rate [Right] Respiratory Rate 19 21 Blood Pressure 161/75 H 145/68 H Blood Pressure [Right Arm] Blood Pressure Mean [Right Arm] Blood Pressure Source [Right Arm] 02 Sat by Pulse Oximetry 95 94 L Oxygen Delivery Method Oxygen Flow Rate (LPM) - Lab Data Lab Results 02/01/21 19:05: WBC 10.4, RBC 5.31, Hgb 14.7, Hct 46.5, MCV 87.5, MCH 27.7, MCHC 31.7 L, RDW 15.1, Plt Count 219, MPV 8.1, Neut % (Auto) 85.7 H, Lymph % (Auto) 7.9 L, [place] % (Auto) 5.7, Eos % (Auto) 0.0 L, Baso % (Auto) 0.7, Neut # (Auto) 8.9 H, Lymph # (Auto) 0.8, [place] # (Auto) 0.6, Eos # (Auto) 0.0, Baso # (Auto) 0.1, Total Counted 100, Neutrophils % (Manual) 84 H, Lymphocytes % (Manual) 9 L, Monocytes % (Manual) 7, Platelet Estimate Normal, RBC Morphology Normal 02/01/21 19:05: Sodium 137, Potassium 4.4, Chloride 99, Carbon Dioxide 21 L, Anion Gap 21.4 H, BUN 26 H, Creatinine 1.20, Estimated Creat Clear 107, Estimated GFR 60, Est GFR ( Amer) 72, Glucose 303 H, Calcium 8.6, Total Bilirubin 0.6, AST 102 H, ALT 64, Alkaline Phosphatase 102, Troponin I 0.03, Total Protein 8.1, Albumin 4.4, Globulin 3.7 H, Albumin/Globulin Ratio 1.2 02/01/21 19:05: NT-Pro-B Natriuret Pep 219 H 02/01/21 19:23: Specimen Source Right radial, ABG pH 7.40, ABG pCO2 40.1, ABG pO2 61.1 L, ABG HCO3 24.1, ABG Total CO2 25.3, ABG O2 Saturation 91, ABG Base Excess -0.7, Oc Test Acceptable 02/01/21 19:35: Urine Color Yellow, Urine Appearance Clear, Urine pH 5.5, Ur Specific [place] 1.020, Urine Protein Neg
[2021-02-01 19:46] LABS: Influenza A, PCR Not Detected (NotDetected); Influenza B, PCR Not Detected (NotDetected); Microscopic, Urine URINE MICROSCOPIC (MICROSCOPIC)
[2021-02-01 19:49] LABS: Alanine Aminotransferase 64 U/L (12-78); Albumin Level 4.4 g/dl (3.5-5.0); Albumin/Globulin Ratio 1.2 (1.1-1.8); Alkaline Phosphatase 102 U/L (38-126); Anion Gap 21.4 mEq/L (5-15); Aspartate Amino Transferase 102 U/L (17-59); Bilirubin,Total 0.6 mg/dl (0.2-1.3); Blood Urea Nitrogen 26 mg/dl (9-20); Calcium 8.6 mg/dl (8.4-10.2); Carbon Dioxide 21 mmol/L (22.0-30.0); Chloride 99 mmol/L (98-107); Creatinine Clearance Estimated 107 mL/min (50-200); Estimated Glomerular Filt Rate 60 ml/min (>60); GFR (African American) 72 ML/MIN (>60); Globulin 3.7 g/dL (1.3-3.2); Glucose 303 mg/dl (74-100); Potassium 4.4 mmoL/L (3.5-5.1); Sodium 137 mmol/L (136-145); Total Protein,Serum 8.1 g/dl (6.3-8.2)
[2021-02-01 19:50] LABS: Basophils # 0.1 K/mm3 (0-0.2); Basophils % 0.7 % (0.1-2.0); Hematocrit 46.5 % (42.0-52.0); Hemoglobin 14.7 g/dL (14.1-18.0); Lymphocytes # 0.8 K/mm3 (0.7-4.5); Lymphocytes % 7.9 % (10-50); Mean Corpuscular HGB Conc 31.7 g/dL (31.8-35.4); Mean Corpuscular Hemoglobin 27.7 pg (27.0-31.2); Mean Corpuscular Volume 87.5 fl (80-94); Mean Platelet Volume 8.1 fl (7.4-10.4); Monocytes # 0.6 K/mm3 (0.1-1.0); Monocytes % 5.7 % (1.7-9.3); Neutrophils # 8.9 K/mm3 (1.8-7.8); Neutrophils % 85.7 % (37.0-80.0); Platelet Count 219 K/mm3 (142-424); Red Blood Count 5.31 M/mm3 (4.60-6.20); Red Cell Distribution Width 15.1 % (11.5-17.5); White Blood Count 10.4 K/mm3 (4.8-10.8)
[2021-02-01 19:54] LABS: MANUAL DIFFERENTIAL MANUAL DIFFERENTIAL (MANUAL DIFF)
[2021-02-01 19:57] LABS: Appearance,Urine CLEAR (Clear); Bilirubin,Urine Negative (Negative); Blood, Urine TRACE-L (Negative); Color,Urine YELLOW (Yellow); Glucose,Urine (UA) 3+ (Negative); Ketones,Urine Negative (Negative); Leukocyte Esterase,Urine Negative (Negative); Nitrate,Urine Negative (Negative); PH,Urine 5.5 (5.0-8.5); Protein,Urine Negative (Negative); Urobilinogen,Urine 0.2 EU/dl (0.2)
[2021-02-01 19:59] LABS: NT Pro Brain Natriuretic Pep. 219 pg/mL (0-125)
[2021-02-01 20:02] LABS: Troponin I 0.03 ng/ml (0.00-0.034)
[2021-02-01 20:10] LABS: Coronavirus 19, PCR Detected (NotDetected)
[2021-02-01 20:15] LABS: Lymphocytes % 9 % (10-50); Monocytes % 7 % (2-9); Neutrophils % 84 % (42-76); Total Cells Counted 100
[2021-02-01 20:16] LABS: Lactic Acid 5.1 mmol/L (0.7-2.1)
[2021-02-01 20:16] LABS: Platelet Estimate Normal; RBC Morphology Normal
--- NOTE | 2021-02-01 20:21 | XR_ITS ---
PROCEDURE INFORMATION: Exam: XR Left Tibia and Fibula Exam date and time: 02/01/2021 8:21 PM Age: 70 years old Clinical indication: Injury or trauma; Fall; Blunt trauma; Lower leg; Left; Additional info: Fall to knees TECHNIQUE: Imaging protocol: XR Left tibia and fibula. Views: 2 views. COMPARISON: US CA arterial duplex LE BI 01/15/2018 1:42 PM FINDINGS: Bones/joints: Small joint effusion. Degenerative changes most prominent within the medial compartment. Irregular sclerotic appearing foci within the distal femur and proximal tibia measuring approximately 19 x 21 mm and 20 x 13 mm respectively. Enthesophyte at the quadriceps tendon insertion. No acute fracture or dislocation. Soft tissues: Normal. IMPRESSION: Chronic changes without acute osseous abnormality. Sclerotic appearing foci within the distal femur and proximal tibia which are potentially related to bone infarct or chondroid lesions. In the absence of prior imaging for comparison, short-term follow-up imaging is recommended for stability.
--- NOTE | 2021-02-01 20:21 | XR_ITS ---
PROCEDURE INFORMATION: Exam: XR Right Knee Exam date and time: 02/01/2021 8:21 PM Age: 70 years old Clinical indication: Injury or trauma; Fall; Blunt trauma; Knee; Right; Additional info: Fall to knees TECHNIQUE: Imaging protocol: XR Right knee. Views: 3 views. COMPARISON: US CA arterial duplex LE BI 01/15/2018 1:42 PM FINDINGS: Bones/joints: Status post total knee arthroplasty with patellar resurfacing. Alignment is physiologic. No significant periprosthetic lucency. Small joint effusion. No visualized fracture. Soft tissues: Normal. Vasculature: Vascular calcifications. IMPRESSION: Small joint effusion.
--- NOTE | 2021-02-01 20:21 | XR_ITS ---
PROCEDURE INFORMATION: Exam: XR Left Knee Exam date and time: 02/01/2021 8:21 PM Age: 70 years old Clinical indication: Injury or trauma; Fall; Blunt trauma; Knee; Bilateral; Additional info: Fall to knee TECHNIQUE: Imaging protocol: XR Left knee. Views: 3 views. COMPARISON: US CA arterial duplex LE BI 01/15/2018 1:42 PM FINDINGS: Bones/joints: Small joint effusion. Degenerative changes most prominent within the medial compartment. Irregular sclerotic appearing foci within the distal femur and proximal tibia measuring approximately 19 x 21 mm and 20 x 13 mm respectively. Enthesophyte at the quadriceps tendon insertion. No acute fracture or dislocation. Soft tissues: Normal. Vasculature: Vascular calcifications. IMPRESSION: Chronic changes without acute osseous abnormality. Sclerotic appearing foci within the distal femur and proximal tibia which are potentially related to bone infarct or chondroid lesions. In the absence of prior imaging for comparison, short-term follow-up imaging is recommended for stability.
--- NOTE | 2021-02-01 20:21 | PC.NURSE ---
pt going to radiology at this time
--- NOTE | 2021-02-01 20:40 | PC.NURSE ---
pt going to radiology at this time
--- NOTE | 2021-02-01 20:57 | PC.NURSE ---
pt back in room from radiology.
--- NOTE | 2021-02-01 21:00 | PC.NURSE ---
Titrated 02 down to 5LPM NC- sat's 94-95%
--- NOTE | 2021-02-01 21:25 | XR_ITS ---
PROCEDURE INFORMATION: Exam: XR Pelvis Exam date and time: 02/01/2021 9:25 PM Age: 70 years old Clinical indication: Pain; Additional info: Fall to knee TECHNIQUE: Imaging protocol: XR pelvis. Views: 1 or 2 view. COMPARISON: CT ABDOMEN PELVIS W CON 03/13/2019 8:39 PM FINDINGS: Examination is limited by soft tissue overlap. No visualized acute fracture or dislocation. IMPRESSION: Limited exam without visualized acute findings.
--- NOTE | 2021-02-01 22:25 | PC.NURSE ---
Attempted to call report, will call back.
--- NOTE | 2021-02-01 22:29 | PC.NURSE ---
@2200 titrated 02 down to 4LPM NC and sat 92-94
[2021-02-01 22:40] LABS: Coronavirus 19 IgG Antibody Positive (Negative); Coronavirus 19 IgM Antibody Negative (Negative)
--- NOTE | 2021-02-01 23:12 | PC.NURSE ---
PT ARRIVED TO FLOOR VIA STRTECHER FROM ED W/STAFF AT [id number]
[2021-02-01 23:26] LABS: Reflex Lactic Add Lactic Reflex
[2021-02-01 23:35] LABS: Lactic Acid Follow Up (RFLX 1) 1.4 mmol/L (0.7-2.1)
[2021-02-02] VITALS (7 sets, daily range): BP systolic 129–152; BP diastolic 59–72; PULSE 69–105; RESP 18–24; TEMP 36.3–37.6; O2SAT 90–98; BMI 37.7
[2021-02-02 00:26] LABS: POC Glucose,Bedside 356 (70-110)
--- NOTE | 2021-02-02 05:23 | PC.NURSE ---
Patient arrived on floor on 4L NC has shown no s/s of acute distress this shift. States feels weak in lower extremities. Bed at lowest level for safety, call light within reach; will continue to monitor.
[2021-02-02 07:17] LABS: POC Glucose,Bedside 368 (70-110)
--- NOTE | 2021-02-02 08:00 | CA_ITS ---
APPROVED REPORT EXAM: Comprehensive 2D, Doppler, and color-flow Echocardiogram Bomb [employer] Commander: Izzy Ling CRT Ht: 6 ft 0 in Wt: 300lbs BSA: 2.53 BP: 143/68 mmHg Indications: Covid +, home o2, COPD, Shortness of Breath, Diabetes, Hyperlipidemia, Hypertension/HDD, GERD, ex smoker 2D Dimensions LVOT 2.02 cm (M/F) 1.5-2.5 M-Mode Dimensions RVDd 3.50 cm (0.9-2.6) LA Diam 3.87 cm (1.9-4.0) LVDd 5.87 cm (3.5-5.7) Ao Diam 4.23 cm (2.0-3.7) LVDs 3.40 cm (3.5-5.7) IVSd 1.13 cm (0.6-1.1) PWd 0.77 cm (0.6-1.1) EF (Teich) 72.30% FS 42.10% EDV (Teich) 171.20 mL ESV (Teich) 47.40 mL LV Diastology E Decel Time 150.00 (160-240 msec) E/A Ratio 1.30 Aortic Valve AO Peak GR. 5.20 mmHg Mitral Valve MV E Max Sherman. 78.00 (40-130 cm/s) MV A Velocity 60.00 (40-130 cm/s) E/A Ratio 1.30 MV Decel. Time 150.00 (160-240 ms) MV PHT 44.00 ms Tricuspid Valve TR P. Velocity 181.00 cm/s RAP Estimate 10.00 mmHg RVSP 23.10 mmHg Left Ventricle Technically very difficult study, endocardial surfaces are very poorly visualized. Left atrium is mildly enlarged, left ventricle is normal size, mild concentric left ventricular hypertrophy, visually estimated ejection fraction probably 50% with no regional wall motion abnormality, diastolic parameters are inconclusive. Right Ventricle Right atrium and right ventricle are mildly enlarged with normal contractility. Aortic Valve Aortic valve is minimally thickened and fibrosed. There is no aortic stenosis or aortic insufficiency. Mitral Valve Mitral valve grossly normal, there is mild mitral regurgitation. Tricuspid Valve Tricuspid valve grossly normal, there is mild tricuspid regurgitation, tricuspid regurgitation jet velocity is inadequate for calculation of the right ventricular systolic pressure. Pulmonic Valve Pulmonic valve is poorly visualized. Great Vessels Aortic root is normal size. Pericardium No significant pericardial effusion noted. Conclusion 1. Technically very difficult study because of the patient factors and poor acoustic windows. 2. Normal left ventricular size probably preserved left ventricular systolic function, visually estimated ejection fraction 50% with no obvious regional wall motion abnormality, endocardial surfaces are very poorly visualized. Diastolic parameters are inconclusive. 3. Mildly enlarged right ventricle with normal contractility. 4. No significant pericardial effusion noted. Electronically signed by : Lamberto Mckeon MD 02/03/2021 11:16:36
--- NOTE | 2021-02-02 08:00 | CA_ITS ---
APPROVED REPORT Bilateral Lower Extremity Venous Study for DVT. Applied Mathematician: CT Indications Shortness of breath sob/pul emboli Vein Imaging CFV (R): compressive, spontaneous, phasic, augmentation SFJ (R): compressive, spontaneous, phasic, augmentation FEM (R): compressive, spontaneous, phasic, augmentation POP (R): compressive, spontaneous, phasic, augmentation DFV (R): compressive, spontaneous, phasic, augmentation PTV (R): compressive, spontaneous, phasic, augmentation GSV (R): compressive, spontaneous, phasic, augmentation Peroneals (R):compressive, spontaneous, phasic, augmentation GAS (R): compressive, spontaneous, phasic, augmentation CFV (L): compressive, spontaneous, phasic, augmentation SFJ (L): compressive, spontaneous, phasic, augmentation FEM (L): compressive, spontaneous, phasic, augmentation POP (L): compressive, spontaneous, phasic, augmentation DFV (L): compressive, spontaneous, phasic, augmentation PTV (L): compressive, spontaneous, phasic, augmentation GSV (L): compressive, spontaneous, phasic, augmentation Peroneals (L):compressive, spontaneous, phasic, augmentation GAS (L): compressive, spontaneous, phasic, augmentation Findings Bilateral lower extremity venous doppler negative for DVT/SVT. Vessels compressible. Bilateral peroneals and PT's difficult to image. Conclusion Bilateral lower extremity venous doppler negative for DVT/SVT. Vessels compressible. Bilateral peroneals and PT's difficult to image. Electronically signed by : Oc Mckeon MD 02/02/2021 16:24:02
--- NOTE | 2021-02-02 08:07 | P.CONPHA_ITS ---
[facility] Pharmacy VTE Monitoring - Patient Demographics Admission date: 02/01/21 Report Date: 02/02/21 Time: 08:07 Allergies/Adverse Reactions: Patient Allergies No Known Allergies Allergy (Verified 01/16/21 10:15) Height: 1.83 m Weight: 126.212 kg Patient Problems: Current Active Problems Acute on chronic respiratory failure (Acute) Weakness (Acute) Multiple falls (Acute) COVID-19 (Acute) - VTE Risk Labs: VTE Related Lab Results Hgb 14.7 g/dL (14.1-18.0) 02/01/21 19:05 Hct 46.5 % (42.0-52.0) 02/01/21 19:05 Plt Count 219 K/mm3 (142-424) 02/01/21 19:05 BUN 26 mg/dl (9-20) H 02/01/21 19:05 Creatinine 1.20 mg/dl (0.66-1.25) 02/01/21 19:05 Estimated Creat Clear 107 mL/min (50-200) 02/01/21 19:05 - Prophylaxis VTE Prophylaxis Ordered?: Yes Types of VTE Prophylaxis: TEDS Knee High Location of Applied Device: Bilateral Lower Extremeties
[2021-02-02 08:56] LABS: Basophils % 0.5 % (0.1-2.0); Eosinophils % 0.1 % (0.1-12.0); Hemoglobin 14.2 g/dL (14.1-18.0); Lymphocytes # 0.7 K/mm3 (0.7-4.5); Lymphocytes % 8.1 % (10-50); Mean Corpuscular HGB Conc 31.6 g/dL (31.8-35.4); Mean Corpuscular Volume 88.6 fl (80-94); Mean Platelet Volume 8.2 fl (7.4-10.4); Monocytes # 0.4 K/mm3 (0.1-1.0); Monocytes % 4.8 % (1.7-9.3); Neutrophils # 7.8 K/mm3 (1.8-7.8); Neutrophils % 86.5 % (37.0-80.0); Platelet Count 207 K/mm3 (142-424); Red Blood Count 5.07 M/mm3 (4.60-6.20); Red Cell Distribution Width 15.1 % (11.5-17.5)
[2021-02-02 08:59] LABS: MANUAL DIFFERENTIAL MANUAL DIFFERENTIAL (MANUAL DIFF)
[2021-02-02 09:06] LABS: Chloride 100 mmol/L (98-107); Potassium 5.5 mmoL/L (3.5-5.1); Sodium 135 mmol/L (136-145)
[2021-02-02 09:07] LABS: Lymphocytes % 4 % (10-50); Monocytes % 5 % (2-9); Neutrophils % 90 % (42-76); Total Cells Counted 100
[2021-02-02 09:08] LABS: Blood Urea Nitrogen 27 mg/dl (9-20); Creatinine Clearance Estimated 119 mL/min (50-200); Estimated Glomerular Filt Rate 73 ml/min (>60); GFR (African American) 89 ML/MIN (>60); Hypochromasia 2+; Platelet Estimate Normal
[2021-02-02 09:09] LABS: Calcium 8.1 mg/dl (8.4-10.2); Carbon Dioxide 26 mmol/L (22.0-30.0); Magnesium 2.4 mg/dl (1.6-2.3)
[2021-02-02 09:28] LABS: Anion Gap 14.5 mEq/L (5-15)
[2021-02-02 09:29] LABS: Glucose 454 mg/dl (74-100)
--- NOTE | 2021-02-02 09:33 | PC.NURSE ---
DR MULLINS'S [place] OFFICE MADE AWARE OF GLUCOSE LEVEL OF [id number]. THIS RN SPOKE WITH ORIN VIA TELEPHONE. NAME AND VERIFIED WITH LAB.
--- NOTE | 2021-02-02 10:05 | HMH.HP ---
*Admission Date: 02/01/21 <Swapna Henson - 02/02/21 10:24> *Chief complaint: weakness, SOA <Josias Hensona - 02/02/21 10:24> *History of present illness: Mr. Massey is a 70-year-old male with a history of chronic oxygen dependent COPD, hypertension, type 2 diabetes, and BPH. He states his shortness of breath has been slightly worse over the past few weeks. His granddaughter came and stayed with him last week and then found out that a friend of hers had Covid. She then got sick and 2 days ago Mr. Massey began feeling poorly. He was extremely weak and had numerous falls at home. He became more short of breath and had to turn up his oxygen. He states yesterday he fell and could not get up, therefore 911 was called and he was transported to the emergency room. He had a Covid test in the ER and was positive for Covid. Of note, he did have the Moderna vaccine x2 starting in October. He states his whole family is now sick. He had a blood gas and his PO2 was 61. His glucose was elevated and his troponin has elevated as well. The ER physician was concerned with a PE. He had a chest CTA which showed emphysema with incomplete opacification of the lower lobe segmental and subsegmental pulmonary arteries which may be secondary to motion in contrast timing however, this could also be seen with acute PE. The patient had knee x-rays due to his numerous falls which showed no fracture. The right knee x-ray did show a small joint effusion. His left tib-fib x-ray showed sclerotic appearing foci within the distal femur and proximal tibia potentially related to bone infarct or chondroid lesions. Short-term follow-up imaging was recommended. An echo and venous Doppler have been ordered. He was admitted for further evaluation and treatment. <BrandtJosias valerioa - 02/02/21 10:42> [facility] History I have reviewed the patient's past medical history: Yes <BrandtteodoroSwapna 02/02/21 10:24> Medical History: Reports:: BPH, Chronic Obstructive Pulmonary Disease (COPD), Coronary Artery Disease, Diabetes Mellitus Type 2, Gastroesophageal Reflux Disease(GERD), Hypertension Denies:: Cancer, Diabetes Mellitus Type 1, Internal Pacemaker, MRSA, Seizures <Swapna Henson 02/02/21 10:24> *Have you ever received a pneumonia vaccine?: Yes <Swapna Henson 02/02/21 10:24> *Have you received a flu vaccine this season?: Yes <Swapna Henson 02/02/21 10:24> Other Medical History: Reports: Other <Swapna Henson 02/02/21 10:24> Laterality Cases: Right: Arthroscopy Knee, Total Knee Replacement, Bilateral: Tonsillectomy <Swapna Henson 02/02/21 10:24> Other Surgeries: Yes: Angiogram, Cardiac Catheterization, Hernia Repair. No: Pacemaker <Swapna Henson 02/02/21 10:24> Amputation: No <Swapna Henson 02/02/21 10:24> Fractures: No <Swapna Henson 02/02/21 10:24> - *Social History Last grade of school completed: Some college <Swapna Henson 02/02/21 10:24> Smoking Status: Former smoker <Swapna Henson 02/02/21 10:24> Tobacco Type: cigarettes <Swapna Henson 02/02/21 10:24> # Packs/Day (cigarettes): 1 <Swapna Henson 02/02/21 10:24> #Yrs smoked (if former smoker): 45 <Swapna Henson 02/02/21 10:24> Alcohol Intake: never <Swapna Henson 02/02/21 10:24> Alcohol Intake Frequency:: other <Swapna Henson 02/02/21 10:24> Substance Use Type: denies use <Swapna Henson 02/02/21 10:24> *Occupational Status:: retired <Swapna Henson 02/02/21 10:24> Housing: house <Swapna Henson 02/02/21 10:24> Household Members: spouse <Swapna Henson 02/02/21 10:24> *Travel in the last 8 weeks: None <Swapna Henson 02/02/21 10:24> Family Hx:: Diabetes, Heart Attack <Swapna Henson 02/02/21 10:24> Review of Systems - Constitutional Reports fatigue, Reports fever(s), Reports weakness <Swapna Henson - 02/02/21 10:42> - Eyes Denies blurry vision, Denies double vision <Swapna Henson - 02/02/21 10:42> - ENT Reports sore throat, Denies nasal congestion <Swapna Henson
--- NOTE | 2021-02-02 10:13 | HMH.PHAINT ---
MEDICATION RECONCILIATION COMPLETE USING LIST FROM MD OFFICE, EXTERNAL PHARMACY FILL HISTORY, AND JEREMI REPORT.
--- NOTE | 2021-02-02 10:20 | HMH.PULMCON ---
*Admission Date: 02/01/21 *Reason for consult:: Acute hypoxic respiratory failure, COVID-19 pneumonia. *History of present illness: Mr. Love is a 70-year-old male with a history of severe COPD, prior frequent exacerbations on azithromycin Saturday along with triple inhaler therapy and hypertonic saline nebulizations presented hospital complaining of bilateral lower extremity weakness and fall and patient was found to have COVID-19 pneumonia and pulmonary was called for further management. [facility] History Medical History: Reports:: Chronic Obstructive Pulmonary Disease (COPD), Coronary Artery Disease, Diabetes Mellitus Type 2, Gastroesophageal Reflux Disease(GERD), Hypertension Denies:: Cancer, Diabetes Mellitus Type 1, Internal Pacemaker, MRSA, Seizures *Have you ever received a pneumonia vaccine?: Yes *Have you received a flu vaccine this season?: Yes Other Medical History: Reports: Other Laterality Cases: Bilateral: Tonsillectomy Other Surgeries: Yes: Angiogram, Cardiac Catheterization, Hernia Repair. No: Pacemaker Amputation: No Fractures: No - *Social History Last grade of school completed: Some college Smoking Status: Former smoker Tobacco Type: cigarettes # Packs/Day (cigarettes): 1 #Yrs smoked (if former smoker): 45 Alcohol Intake: never Alcohol Intake Frequency:: other Substance Use Type: denies use *Occupational Status:: retired Housing: house Household Members: spouse *Travel in the last 8 weeks: None Family Hx:: No significant family history ROS - Cons Reports anorexia, Reports body ache(s), Reports chills - Card Reports shortness of breath, Reports shortness of breath with activity, Reports generalized swelling, Reports leg swelling - Resp Respiratory: Reports change in phlegm color, Reports chest congestion, Reports excessive phlegm production - [place] Musculoskeletal: Reports muscle cramps, Reports muscle weakness - Psych Reports abnormal sleep pattern Meds Home Medications Medication Instructions Recorded Confirmed Type metformin 1,000 mg tablet 1,000 mg PO BID 08/29/17 02/01/21 History aspirin 325 mg tablet 325 mg PO DAILY tab 01/14/18 02/01/21 History allopurinol 100 mg tablet 100 mg PO DAILY 10/16/18 02/01/21 History insulin human U-100 NPH-regulr 80 unit SUB-Q BID ml 01/08/19 02/02/21 History 70-30 mix 100 unit/mL subcutaneous susp cholecalciferol (vitamin D3) 125 125 mcg PO DAILY 03/16/20 02/01/21 History mcg (5,000 unit) tablet ferrous sulfate 325 mg (65 mg 325 mg PO DAILY 03/16/20 02/01/21 History iron) tablet furosemide 80 mg tablet 40 mg PO BID tab 10/11/20 02/01/21 History gabapentin 400 mg capsule 400 mg PO TID cap 10/11/20 02/01/21 History fluticasone fur. 100 mcg-umeclid 1 inh INHALATION DAILY 11/22/20 02/01/21 History 62.5 mcg-vilant 25 mcg inhalat.powder spironolactone 50 mg tablet 50 mg PO DAILY tab 01/16/21 02/01/21 History Albuterol Sulfate [Albuterol 0.63 mg INHALATION Q6H 02/01/21 02/01/21 History Sulfate 0.63mg/3ml Neb] Budesonide 0.25 mg INHALATION BID 02/01/21 02/01/21 History Formoterol Fumarate [Perforomist] 2 ml INHALATION BID 02/01/21 02/01/21 History Allergies Allergy/AdvReac Type Severity Reaction Status Date / Time No Known Allergies Allergy Verified 01/16/21 10:15 Exam - Constitutional Constitutional:: Present: no acute distress, comfortable - HENMT Exam HENMT: Present: normocephalic, atraumatic - Eye Exam Eyes:: Present: normal appearance both eyes and related structures - Neck Exam Neck:: Present: normal visual inspection - Respiratory Exam Respiratory:: Present: able to speak in complete sentences, crackles. Absent: wheezing - Cardiovascular Exam Cardiac:: Present: S1, S2 - GI Exam GI:: Present: soft - Skin Exam Skin: Present: warm, no rash - Neurological Exam Neurological: Present: alert, awake, normal cognition - Extremities Exam Extremities: Present: no cyanosis, no clubbing, edema
--- NOTE | 2021-02-02 18:51 | PC.NURSE ---
PT IS AOX4, ABLE TO MAKE NEEDS KNOWN TO STAFF. HE HAS SAT UP TO CHAIR FOR THE ENTIRE SHIFT AND TOLERATED WELL. HE STILL REQUIRES 4LNC FOR O2 SUPPORT, TOLERATING DIABETIC DIET, FSBS HAVE BEEN ELEVATED THIS SHIFT. HOME INSULIN REGIME PER DR MULLINS. OTHERWISE NO ACUTE CHANGES THIS SHIFT.
[2021-02-02 21:12] LABS: POC Glucose,Bedside 386 (70-110)
[2021-02-02 21:37] LABS: POC Glucose,Bedside 448 (70-110)
[2021-02-03 00:58] VITALS: PULSE 64; PULSE 78
[2021-02-03 04:00] VITALS: BP 129/61; PULSE 69; RESP 20; TEMP 36.6; O2SAT 92
[2021-02-03 05:00] VITALS: BMI 37.3
--- NOTE | 2021-02-03 05:18 | PC.NURSE ---
shift summary patient requiring a lot of care with frequent call light usage. breath sounds diminished throughout all rios. have been able to titrate o2 down to 2 l nc. r/a sats of 89% after 30 min. patient gets up and down to bedside to use urinal without appearing labored in breathing pattern. heart rhythm regular per palpation. voiding clear, yellow urine per urine output has been greater than 2000 ml this shift.
[2021-02-03 05:33] LABS: POC Glucose,Bedside 414 (70-110)
[2021-02-03 06:23] VITALS: PULSE 60
[2021-02-03 07:54] VITALS: BP 119/53; PULSE 76; RESP 18; TEMP 36.6; O2SAT 94
--- NOTE | 2021-02-03 09:03 | CT_ITS ---
PROCEDURE: CT ANGIO CHEST PE PROTOCOL CLINCIAL INDICATION: Hypoxia COPD, Covid19, respiratory failure, hypoxia COMPARISON: CT CT ANGIO CHEST PE PROTOCOL from 02/01/2021 TECHNIQUE: IV Contrast: 70ML Isovue 370 Axial images obtained with sagittal and coronal reformats. All CT scans at the facility use one or more dose reduction, viz: automated exposure control, ma/kV adjustment per patient size (including targeted exams where dose is matched to indication, i.e. head), or iterative reconstruction technique. FINDINGS: Thyroid gland is enlarged with substernal extension and with narrowing of the trachea. There is no evidence of pulmonary embolus or aortic aneurysm. Coronary artery calcifications are present. Atelectatic changes are present in the lung bases. There is patchy ground-glass attenuation in the lingula associated with some mild atelectatic changes. No lobar consolidation or collapse. There are degenerative changes in the thoracic spine. There is diffuse fatty infiltration of the liver. Small hypodensity is present in the spleen posteriorly at 10 mm nonspecific. Gynecomastia noted IMPRESSION: No evidence of pulmonary embolus. Bibasilar atelectatic changes. Faint ground-glass attenuation noted in the lingula nonspecific associated with some mild atelectatic change. Enlarged thyroid gland with narrowing of the trachea Overall no significant change. Dictated by: Oc Mckeon MD 02/03/2021 11:10 Oc Mckeon MD in [facility] 02/03/2021 11:10
--- NOTE | 2021-02-03 09:10 | HMH.ITSTN ---
waiting on iv in AC to perform ct angio chest , spoke to maureen
--- NOTE | 2021-02-03 09:12 | HMH.ACPN2 ---
Internal Medicine - PN: Subj *Date: 02/03/21 *Time: 08:52 Interval history: He did not sleep well last night. He is not happy being moved to the special care unit for Covid isolation. Also states that he was awake urinating all night because of the Lasix. States his breathing seems to be better and his legs feel little stronger. Denies cough or chest pain. Blood sugars have been elevated related to the steroids. Exam Vital signs and Labs for Last 24 Hours: Temp Pulse Resp BP Pulse Ox 97.9 F 76 18 119/53 L 94 L 02/03/21 07:54 02/03/21 07:54 02/03/21 07:54 02/03/21 07:54 02/03/21 07:54 Laboratory Results - last 24 hr 02/02/21 08:49: Carbon Dioxide 26 D, Anion Gap 14.5, Glucose 454 H* D, Calcium 8.1 L, Magnesium 2.4 H 02/02/21 11:25: POC Glucose 414 H* 02/02/21 17:42: POC Glucose 386 H* 02/02/21 21:04: POC Glucose 448 H* I & O for Last 24 hours: Intake & Output 01/31/21 02/01/21 02/02/21 02/03/21 11:59 11:59 11:59 11:59 Intake Total 1772 / 1772 1930 / 1930 Output Total 300 / 300 3700 / 3700 Balance 1472 / 1472 -1770 / -1770 Weight 278 lb 3.997 oz 276 lb Microbiology Reports for the Last 24 Hours: Microbiology 02/01/21 19:35 Sputum - Expectorated Sputum Gram Stain - Final 02/01/21 19:35 Sputum - Expectorated Sputum Sputum Culture - Preliminary Narrative: He is sitting on the side of the bed. He is alert and in no respiratory distress. Breath sounds are generally diminished but otherwise clear. Heart is distant but regular. Extremities show only trace edema of the left leg. His venous Doppler was negative for DVT. Assessment and Plan (1) Acute on chronic respiratory failure Status: Acute Qualifiers: Respiratory failure complication: hypoxia Qualified Code(s): J96.21 - Acute and chronic respiratory failure with hypoxia Category: Medical Code(s): J96.20 - Acute and chronic respiratory failure, unspecified whether with hypoxia or hypercapnia (2) COVID-19 Status: Acute Category: Medical Code(s): U07.1 - COVID-19 (3) Pneumonia due to COVID-19 virus Status: Acute Category: Medical Code(s): U07.1 - COVID-19; J12.82 - Pneumonia due to coronavirus disease 2019 (4) Elevated troponin Status: Acute Category: Medical Code(s): R77.8 - Other specified abnormalities of plasma proteins (5) Multiple falls Status: Acute Category: Medical Code(s): R29.6 - Repeated falls (6) Weakness Status: Acute Category: Medical Code(s): R53.1 - Weakness (7) Type 2 diabetes mellitus Status: Chronic Qualifiers: Diabetes mellitus long term care social worker insulin use: with halfway use Diabetes mellitus complication status: with neurologic complications Diabetes mellitus complication detail: with polyneuropathy Qualified Code(s): E11.42 - Type 2 diabetes mellitus with diabetic polyneuropathy; 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 transplanted heart: [place] heart Associated angina: without angina Qualified Code(s): I25.10 - Atherosclerotic heart disease of [place] coronary artery without angina pectoris Category: Medical Code(s): I25.10 - Atherosclerotic heart disease of [place] coronary artery without angina pectoris (9) COPD (chronic obstructive pulmonary disease) Status: Chronic Qualifiers: COPD type: chronic bronchitis Chronic bronchitis type: unspecified Qualified Code(s): J42 - Unspecified chronic bronchitis Category: Medical Code(s): J44.9 - Chronic obstructive pulmonary disease, unspecified (10) HTN (hypertension) Status: Chronic Qualifiers: Hypertension type: essential hypertension Category: Medical Code(s): I10 - Essential (primary) hypertension (11) АНДРЕЙ
--- NOTE | 2021-02-03 10:04 | PC.NURSE ---
18g PIV started in right AC. Called rad to complete CT scan
--- NOTE | 2021-02-03 10:22 | HMH.PULMPN ---
Internal Medicine - PN: Subj *Date: 02/03/21 *Time: 10:22 Interval history: No acute respiratory events overnight. Patient denies any new complaints. He admits improvement in his symptoms. Exam - Constitutional Constitutional:: Present: no acute distress, comfortable - HENMT Exam HENMT: Present: normocephalic, atraumatic - Eye Exam Eyes:: Present: normal appearance both eyes and related structures - Neck Exam Neck:: Present: normal visual inspection - Respiratory Exam Respiratory:: Present: able to speak in complete sentences, no respiratory distress, crackles - Cardiovascular Exam Cardiac:: Present: S1, S2 - GI Exam GI:: Present: soft, obese - Skin Exam Skin: Present: warm, no rash - Neurological Exam Neurological: Present: alert, awake, normal cognition - Extremities Exam Extremities: Present: no cyanosis, no clubbing Assessment and Plan (1) Acute on chronic respiratory failure Status: Acute Qualifiers: Respiratory failure complication: hypoxia Qualified Code(s): J96.21 - Acute and chronic respiratory failure with hypoxia Category: Medical Code(s): J96.20 - Acute and chronic respiratory failure, unspecified whether with hypoxia or hypercapnia (2) COVID-19 Status: Acute Category: Medical Code(s): U07.1 - COVID-19 (3) Pneumonia due to COVID-19 virus Status: Acute Category: Medical Code(s): U07.1 - COVID-19; J12.82 - Pneumonia due to coronavirus disease 2019 (4) Elevated troponin Status: Acute Category: Medical Code(s): R77.8 - Other specified abnormalities of plasma proteins (5) Multiple falls Status: Acute Category: Medical Code(s): R29.6 - Repeated falls (6) Weakness Status: Acute Category: Medical Code(s): R53.1 - Weakness (7) Type 2 diabetes mellitus Status: Chronic Qualifiers: Diabetes mellitus exterminator insulin use: with exterminator use Diabetes mellitus complication status: with neurologic complications Diabetes mellitus complication detail: with polyneuropathy Qualified Code(s): E11.42 - Type 2 diabetes mellitus with diabetic polyneuropathy; 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 transplanted heart: [place] heart Associated angina: without angina Qualified Code(s): I25.10 - Atherosclerotic heart disease of [place] coronary artery without angina pectoris Category: Medical Code(s): I25.10 - Atherosclerotic heart disease of [place] coronary artery without angina pectoris (9) COPD (chronic obstructive pulmonary disease) Status: Chronic Qualifiers: COPD type: chronic bronchitis Chronic bronchitis type: unspecified Qualified Code(s): J42 - Unspecified chronic bronchitis Category: Medical Code(s): J44.9 - Chronic obstructive pulmonary disease, unspecified (10) HTN (hypertension) Status: Chronic Qualifiers: Hypertension type: essential hypertension Category: Medical Code(s): I10 - Essential (primary) hypertension (11) АНДРЕЙ (obstructive sleep apnea) Status: Chronic Category: Medical Code(s): G47.33 - Obstructive sleep apnea (adult) (pediatric) (12) Abnormal chest CT Status: Acute Category: Medical Code(s): R93.89 - Abnormal findings on diagnostic imaging of other specified body structures - Assessment and plan all Dx Assessment and Plan for all problems:: #COPD exacerbation: #COVID-19 pneumonia: #Pulmonary embolism: 70-year-old severe COPD on triple inhaler therapy, long-term antibiotic therapy and hypertonic saline nebulizations. Presented with bilateral lateral lower extremity swelling weakness and fall and found to be positive for COVID-19 pneumonia. Patient was having new oxygen requirements today. His CT scan showed bilateral lower lobe
[2021-02-03 11:29] VITALS: BP 125/58; PULSE 76; RESP 18; TEMP 36.6; O2SAT 93
[2021-02-03 11:40] VITALS: BMI 37.3
--- NOTE | 2021-02-03 14:30 | PC.NURSE ---
pt has been verbally agressive towards myself, other RNs, and Dr. Laird this shift. He is unhappy with his care stating that we are sorry excuses for help . Several attempts have been made by myself, Alyse Don RN, and Dr. Laird to improve his outlook on the care provided. He continues to make rude and aggressive comments toward all staff providing care. At one point, he walked out of his COVID isolation room toward nurses station stating, get me a wheelchair, I'm going home . We are waiting on his to pick him up as he has discharge orders in. Assisted him back to his room and asked him that he wait in his room until his ride gets here. He again states, you are a sorry excuse for a nurse .
--- NOTE | 2021-02-06 16:05 | HMH.DCSUM ---
General - General Admission date:: 02/01/21 <Agus Moore - 03/26/21 22:43> 02/01/21 <Swapna Henson - 02/07/21 15:58> Discharge date: 02/03/21 <NatividadSwapna - 02/07/21 15:58> HPI HPI: Mr. Massey is a 70-year-old male with a history of chronic oxygen dependent COPD, hypertension, type 2 diabetes, and BPH. He states his shortness of breath has been slightly worse over the past few weeks. His granddaughter came and stayed with him last week and then found out that a friend of hers had Covid. She then got sick and 2 days ago Mr. Massey began feeling poorly. He was extremely weak and had numerous falls at home. He became more short of breath and had to turn up his oxygen. He states yesterday he fell and could not get up, therefore 911 was called and he was transported to the emergency room. He had a Covid test in the ER and was positive for Covid. Of note, he did have the Moderna vaccine x2 starting in October. He states his whole family is now sick. He had a blood gas and his PO2 was 61. His glucose was elevated and his troponin has elevated as well. The ER physician was concerned with a PE. He had a chest CTA which showed emphysema with incomplete opacification of the lower lobe segmental and subsegmental pulmonary arteries which may be secondary to motion in contrast timing however, this could also be seen with acute PE. The patient had knee x-rays due to his numerous falls which showed no fracture. The right knee x-ray did show a small joint effusion. His left tib-fib x-ray showed sclerotic appearing foci within the distal femur and proximal tibia potentially related to bone infarct or chondroid lesions. Short-term follow-up imaging was recommended. An echo and venous Doppler have been ordered. He was admitted for further evaluation and treatment. <NatividadSwapna - 02/07/21 15:58> Hospital Course Hospital Course: The patient's chest CT showed emphysema with incomplete opacification of the lower lobe segmental and subsegmental pulmonary arteries. Radiology could not completely exclude a PE. The patient's chest x-ray showed interstitial coarsening with streaky basilar airspace opacities. Patient had numerous other x-rays showing no fracture from his fall. He was admitted and given dexamethasone along with cefepime and Lovenox. He was also started on Lasix. Pulmonology was consulted and felt he should be started on Covid protocol of duo nebs, Rocephin, Zithromax, remdesivir, and dexamethasone. The defense travel administrator recommended initiating full dose anticoagulation for possible PE while awaiting a bilateral lower extremity Doppler. He felt if the Doppler was negative, repeat CT PE should be performed within 48 hours to rule out a pulmonary embolus. The patient's Dopplers were negative for DVT. He was not able to rest well due to being awake all night urinating from the Lasix. His breathing did improve and his legs were not as weak. His blood sugars were elevated due to steroids. Pulmonology wanted to repeat his lung CT with PE protocol. This was performed and was negative for PE. There was faint groundglass attenuation noted in the lingula. It was felt the patient was stable to be discharged home. He will follow-up with Dr. Moore via telehealth. <Swapna Henson - 02/07/21 15:58> Objective Vital signs: Temp Pulse Resp BP Pulse Ox 97.8 F 76 18 125/58 L 93 L 02/03/21 11:29 02/03/21 11:29 02/03/21 11:29 02/03/21 11:29 02/03/21 11:29 <Agus Moore - 03/26/21 22:43> Temp Pulse Resp BP Pulse Ox 97.8 F 76 18 125/58 L 93 L 02/03/21 11:29 02/03/21 11:29 02/03/21 11:29 02/03/21 11:29 02/03/21 11:29 <Swapna Henson - 02/06/21 16:28> Narrative: He is sitting on the side of the bed. He is alert and in no respiratory distress. Breath sounds are generally diminished but otherwise clear. Heart is distant but regular. Extremities show only trace edema of the
== END 2021-02-03 14:47 | disposition home or self-care (01) | DRG 177 ==
LOC: ER 22:14 → 2ND 23:48 → ICU 02-02 18:09
PROVIDERS: Family Medicine; Admitting Provider Family Medicine; Emergency Provider Emergency Medicine; PCP Family Medicine; Visit Provider Family Medicine
DX: U07.1 COVID-19 (principal); J12.82 Pneumonia due to coronavirus disease 2019; J96.21 Acute and chronic respiratory failure with hypoxia; E11.42 Type 2 diabetes mellitus with diabetic polyneuropathy; Z79.4 Long term (current) use of insulin; Z99.81 Dependence on supplemental oxygen; I10 Essential (primary) hypertension; R29.6 Repeated falls; I25.10 Atherosclerotic heart disease of native coronary artery without angina pectoris; K21.9 Gastro-esophageal reflux disease without esophagitis; Z87.891 Personal history of nicotine dependence; Z96.653 Presence of artificial knee joint, bilateral; R77.8 Other specified abnormalities of plasma proteins; W19.XXXA Unspecified fall, initial encounter; E11.49 Type 2 diabetes mellitus with other diabetic neurological complication; G47.33 Obstructive sleep apnea (adult) (pediatric); J43.9 Emphysema, unspecified
CPT/HCPCS: 96365; 36415; 71045; 71275; 72170; 73562; 73590; 80048; 80053; 81001; 82803; 82962; 83605; 83735; 83880; 84484; 85007; 85025; 86328; 87040; 87070; 87077; 87186; 87205; 93005; 93306; 93970; 94640; 94761; 96375; 99284; Q9967; U0003

== ENCOUNTER → 2021-03-07 08:26 | Outpatient (CLI) | payer MEDICARE, SELFPAY ==
[2021-03-07 09:02] LABS: Basophils # 0.1 K/mm3 (0-0.2); Basophils % 0.7 % (0.1-2.0); Eosinophils # 0.3 K/mm3 (0.0-0.4); Eosinophils % 3.5 % (0.1-12.0); Hematocrit 42.2 % (42.0-52.0); Hemoglobin 12.9 g/dL (14.1-18.0); Lymphocytes % 11.4 % (10-50); Mean Corpuscular HGB Conc 30.6 g/dL (31.8-35.4); Mean Corpuscular Hemoglobin 28.1 pg (27.0-31.2); Mean Corpuscular Volume 91.9 fl (80-94); Mean Platelet Volume 8.5 fl (7.4-10.4); Monocytes # 0.4 K/mm3 (0.1-1.0); Neutrophils # 6.6 K/mm3 (1.8-7.8); Neutrophils % 79.4 % (37.0-80.0); Platelet Count 449 K/mm3 (142-424); Red Blood Count 4.59 M/mm3 (4.60-6.20); White Blood Count 8.4 K/mm3 (4.8-10.8)
[2021-03-07 10:58] LABS: Erythrocyte Sedimentation Rate 124 mm/hr (0-20)
[2021-03-07 11:05] LABS: Chloride 99 mmol/L (98-107); Sodium 140 mmol/L (136-145)
[2021-03-07 11:08] LABS: Alanine Aminotransferase 30 U/L (12-78); Albumin Level 3.1 g/dl (3.5-5.0); Albumin/Globulin Ratio 0.9 (1.1-1.8); Alkaline Phosphatase 112 U/L (38-126); Aspartate Amino Transferase 30 U/L (17-59); Bilirubin,Total 0.4 mg/dl (0.2-1.3); Blood Urea Nitrogen 16 mg/dl (9-20); Calcium 8.7 mg/dl (8.4-10.2); Carbon Dioxide 30 mmol/L (22.0-30.0); Cholesterol 162 mg/dl (140-200); Estimated Glomerular Filt Rate 83 ml/min (>60); GFR (African American) 100 ML/MIN (>60); Globulin 3.4 g/dL (1.3-3.2); Glucose 129 mg/dl (74-100); Total Protein,Serum 6.5 g/dl (6.3-8.2); Triglycerides 215 mg/dl (30-150); VLDL Cholesterol 43 mg/dL (0-40)
[2021-03-07 11:09] LABS: Anion Gap 15.5 mEq/L (5-15); Chol/HDL Ratio 6.5 (1-3.5); HDL Cholesterol 25 mg/dl (40-60); Magnesium 1.8 mg/dl (1.6-2.3); Potassium 4.5 mmoL/L (3.5-5.1)
[2021-03-07 11:20] LABS: Direct LDL Cholesterol 84.84 mg/dL (100-129)
[2021-03-07 11:38] LABS: Thyroid Stimulating Hormone 0.72 uIU/mL (0.465-4.68)
[2021-03-08 04:23] LABS: Hemoglobin A1C 10.3 % (4.0-6.0)
== END ==
PROVIDERS: Visit Provider Family Medicine
DX: E11.42 Type 2 diabetes mellitus with diabetic polyneuropathy (principal); E78.5 Hyperlipidemia, unspecified; I10 Essential (primary) hypertension; Z79.4 Long term (current) use of insulin; R53.83 Other fatigue
CPT/HCPCS: 36415; 80053; 80061; 83036; 83735; 84443; 85025; 85651

== ENCOUNTER → 2021-03-17 08:23 | Outpatient (CLI) | payer MEDICARE, SELFPAY ==
--- NOTE | 2021-03-17 08:26 | CT_ITS ---
PROCEDURE: CT CHEST WO CON CLINICAL INDICATION: H/O COVID COMPARISON: CT CT ANGIO CHEST PE PROTOCOL from 02/03/2021 TECHNIQUE: Axial images obtained with sagittal and coronal reformats. All CT scans at the facility use one or more dose reduction, viz: automated exposure control, ma/kV adjustment per patient size (including targeted exams where dose is matched to indication, i.e. head), or iterative reconstruction technique. FINDINGS: HEART AND MEDIASTINAL STRUCTURES: Enlarged thyroid gland once again noted causing narrowing of the trachea. There are coronary artery calcifications. There is prominent calcification of the left cusp of the aortic valve. Please correlate for possible aortic insufficiency.. LUNGS AND PLEURAL SPACES: There are COPD changes. Patchy areas of ground-glass attenuation are present in the posterior aspect of the right upper lobe and the posterior aspect of the left upper lobe. Atelectatic changes are present in the lower lobes posteriorly. Patchy ground-glass attenuation also present in the lingula. BONY STRUCTURES: No acute finding UPPER ABDOMEN: Fatty liver. Cholelithiasis. Nonobstructing 2 mm stone upper pole left kidney. Nonspecific 1 cm hypodensity of the spleen posteriorly. This is unchanged. Gynecomastia is noted. ADDITIONAL FINDINGS: No other significant abnormalities. IMPRESSION: 1. Enlarged thyroid gland causing narrowing of the trachea 2. COPD with a few scattered ground-glass infiltrates which have developed since the previous exam. Atelectatic changes are also present in the lower lobes posteriorly which is also developed since the previous exam. 3. Coronary artery and aortic valve calcification Dictated by: Oc Mckeon MD 03/17/2021 13:26 cO Mckeon MD in [facility] 03/17/2021 13:26
== END ==
PROVIDERS: PCP Family Medicine; Visit Provider Nurse Practitioner
DX: Z86.16 Personal history of COVID-19 (principal); R79.82 Elevated C-reactive protein (CRP)
CPT/HCPCS: 71250

== ENCOUNTER → 2021-03-21 11:25 | Outpatient (CLI) | payer MEDICARE, SELFPAY ==
--- NOTE | 2021-03-21 12:01 | ECG_ITS ---
APPROVED REPORT Exam: Resting ECG HR:76 bpm ECG Measurements Heart Rate 76 AXES IL 144 P 78 QRSd 106 QRS 56 QT 390 T 44 QTc 438 Conclusion Normal sinus rhythm Normal ECG Electronically signed by : Robert Mckeon MD 03/21/2021 17:32:42
[2021-03-21 12:38] LABS: Troponin I < 0.01 ng/ml (0.00-0.034)
== END ==
PROVIDERS: PCP Family Medicine; Visit Provider Nurse Practitioner
DX: R79.82 Elevated C-reactive protein (CRP) (principal); Z86.16 Personal history of COVID-19
CPT/HCPCS: 36415; 84484; 93005

== ENCOUNTER → 2021-04-04 13:23 | Outpatient (CLI) | payer MEDICARE, SELFPAY ==
[2021-04-04 14:43] LABS: Chloride 95 mmol/L (98-107); Potassium 4.4 mmoL/L (3.5-5.1); Sodium 134 mmol/L (136-145)
[2021-04-04 14:46] LABS: Anion Gap 12.4 mEq/L (5-15); Blood Urea Nitrogen 15 mg/dl (9-20); Calcium 8.6 mg/dl (8.4-10.2); Carbon Dioxide 31 mmol/L (22.0-30.0); Estimated Glomerular Filt Rate 111 ml/min (>60); GFR (African American) 134 ML/MIN (>60); Glucose 331 mg/dl (74-100)
== END ==
PROVIDERS: Visit Provider Nurse Practitioner Family
DX: E11.69 Type 2 diabetes mellitus with other specified complication (principal); E66.9 Obesity, unspecified; G47.33 Obstructive sleep apnea (adult) (pediatric); I10 Essential (primary) hypertension; I25.10 Atherosclerotic heart disease of native coronary artery without angina pectoris; I27.20 Pulmonary hypertension, unspecified; J42 Unspecified chronic bronchitis; R06.09 Other forms of dyspnea; R60.9 Edema, unspecified; R94.31 Abnormal electrocardiogram [ECG] [EKG]; Z79.4 Long term (current) use of insulin; Z68.37 Body mass index [BMI] 37.0-37.9, adult
CPT/HCPCS: 36415; 80048

== ENCOUNTER → 2021-04-11 14:57 | Outpatient (CLI) | payer MEDICARE, SELFPAY ==
[2021-04-10 13:21] LABS: Basophils # 0.2 K/mm3 (0-0.2); Basophils % 1.4 % (0.1-2.0); Eosinophils # 0.4 K/mm3 (0.0-0.4); Eosinophils % 3.3 % (0.1-12.0); Hematocrit 41.5 % (42.0-52.0); Hemoglobin 13.3 g/dL (14.1-18.0); Lymphocytes # 2.1 K/mm3 (0.7-4.5); Mean Corpuscular Hemoglobin 28.5 pg (27.0-31.2); Mean Corpuscular Volume 89.2 fl (80-94); Mean Platelet Volume 7.9 fl (7.4-10.4); Monocytes # 0.6 K/mm3 (0.1-1.0); Monocytes % 5.1 % (1.7-9.3); Neutrophils # 7.7 K/mm3 (1.8-7.8); Neutrophils % 71.1 % (37.0-80.0); Platelet Count 259 K/mm3 (142-424); Red Blood Count 4.65 M/mm3 (4.60-6.20); Red Cell Distribution Width 16.2 % (11.5-17.5); White Blood Count 10.9 K/mm3 (4.8-10.8)
[2021-04-10 13:47] LABS: Erythrocyte Sedimentation Rate 58 mm/hr (0-20)
[2021-04-10 13:52] LABS: D-Dimer 0.66 ug/mL (0.0-0.5)
[2021-04-10 14:04] LABS: C-Reactive Protein 28.4 mg/L (0-4)
[2021-04-10 15:04] LABS: Vitamin B12 740 pg/mL (239-931)
[2021-04-10 15:08] LABS: Folate 8.98 ng/mL
== END ==
PROVIDERS: PCP Internal Medicine; Visit Provider Internal Medicine
DX: E11.69 Type 2 diabetes mellitus with other specified complication (principal); E66.9 Obesity, unspecified; G47.33 Obstructive sleep apnea (adult) (pediatric); I10 Essential (primary) hypertension; I20.8 Other forms of angina pectoris; I27.20 Pulmonary hypertension, unspecified; J42 Unspecified chronic bronchitis; R06.09 Other forms of dyspnea; R60.9 Edema, unspecified; R94.31 Abnormal electrocardiogram [ECG] [EKG]; Z01.812 Encounter for preprocedural laboratory examination; Z11.52 Encounter for screening for COVID-19; Z68.38 Body mass index [BMI] 38.0-38.9, adult; Z79.4 Long term (current) use of insulin; Z87.891 Personal history of nicotine dependence
CPT/HCPCS: 36415; 82607; 82746; 85025; 85378; 85651; 86140; C9803; U0003; U0005

== ENCOUNTER 2021-04-13 08:35 | Day surgery (SDC) | payer MEDICARE, SELFPAY ==
[2021-04-13] VITALS (14 sets, daily range): BP systolic 104–143; BP diastolic 52–76; PULSE 66–77; RESP 18–19; TEMP 36.4–36.9; O2SAT 92–100; BMI 37.7
--- NOTE | 2021-04-13 07:11 | IR_ITS ---
APPROVED REPORT Patient Location: Outpatient PROCEDURES Left heart catheterization Left ventriculogram Selective coronary angiogram INDICATION Coronary artery disease, Abnormal CAT scan Informed consent was obtained prior to the procedure. COMPLICATIONS NONE Estimated Blood Loss: LESS THAN 10 ML TECHNIQUE One percent lidocaine used to anesthetize the right anterior aspect of the wrist. The right radial artery was accessed via the Seldinger technique. A 6 [place] sheath was placed in the right radial artery. 2.5 mg of verapamil, 800 mcg of nitroglycerin, 1mg Lidocaine and 5000 U Heparin were given through the arterial sheath. The [place] catheter was also used to perform left heart catheterization, left ventriculogram and selective coronary angiogram. At the end of the procedure the sheath was removed good hemostasis was achieved using Traclet band, patient was transferred to the postop holding area in stable condition. ANGIOGRAPHIC RESULTS The left main artery Normal The left anterior descending artery Normal The circumflex artery Nondominant with mild 10% luminal irregularities The right coronary artery Dominant with mild 20% proximal and mid vessel luminal irregularities The RAMON ventriculogram reveals Preserved 55% The left ventricular end-diastolic pressure 25 mmHg IMPRESSION Mild nonflow limiting coronary disease Preserved ejection fraction Elevated LVEDP PLAN 1. Medical management Electronically signed by : Lokesh Castro MD 04/13/2021 10:31:37
--- NOTE | 2021-04-13 11:23 | PC.NURSE ---
pt eating lunch. no c/o pain
== END 2021-04-13 13:35 | disposition home or self-care (01) ==
LOC: CATHLAB 08:37
PROVIDERS: PCP Family Medicine; Visit Provider Internal Medicine
DX: E11.9 Type 2 diabetes mellitus without complications (principal); E66.9 Obesity, unspecified; G47.33 Obstructive sleep apnea (adult) (pediatric); I10 Essential (primary) hypertension; I27.20 Pulmonary hypertension, unspecified; J42 Unspecified chronic bronchitis; R94.31 Abnormal electrocardiogram [ECG] [EKG]; R94.39 Abnormal result of other cardiovascular function study; I25.118 Atherosclerotic heart disease of native coronary artery with other forms of angina pectoris; Z79.899 Other long term (current) drug therapy; Z79.4 Long term (current) use of insulin; Z68.37 Body mass index [BMI] 37.0-37.9, adult
CPT/HCPCS: 93458; 99152; C1725; C1760; C1769; J1644; Q9967

== ENCOUNTER → 2021-04-17 09:45 | Outpatient (CLI) | payer MEDICARE, SELFPAY ==
[2021-04-17 10:30] VITALS: PULSE 89; PULSE 92
== END ==
PROVIDERS: PCP Family Medicine; Visit Provider Internal Medicine
DX: R06.02 Shortness of breath (principal)
CPT/HCPCS: 94060; 94640; 94727; 94729

== ENCOUNTER → 2021-07-24 10:07 | Outpatient (CLI) | payer MEDICARE, SELFPAY ==
[2021-07-24 12:57] LABS: Anion Gap 14.5 mEq/L (5-15); Blood Urea Nitrogen 23 mg/dl (9-20); Calcium 9.4 mg/dl (8.4-10.2); Carbon Dioxide 31 mmol/L (22.0-30.0); Chloride 94 mmol/L (98-107); Estimated Glomerular Filt Rate 83 ml/min (>60); GFR (African American) 100 ML/MIN (>60); Glucose 189 mg/dl (74-100); Potassium 4.5 mmoL/L (3.5-5.1); Sodium 135 mmol/L (136-145)
== END ==
PROVIDERS: PCP Family Medicine; Visit Provider Physician Assistant
DX: E66.9 Obesity, unspecified (principal); I10 Essential (primary) hypertension; I25.10 Atherosclerotic heart disease of native coronary artery without angina pectoris; I27.20 Pulmonary hypertension, unspecified; R06.09 Other forms of dyspnea; R09.89 Other specified symptoms and signs involving the circulatory and respiratory systems; R60.9 Edema, unspecified; R94.31 Abnormal electrocardiogram [ECG] [EKG]; Z68.38 Body mass index [BMI] 38.0-38.9, adult
CPT/HCPCS: 36415; 80048

== ENCOUNTER → 2021-07-25 10:59 | Outpatient (CLI) | payer MEDICARE, SELFPAY | PROVIDERS: PCP Family Medicine; Visit Provider Internal Medicine Pulmonary Disease | DX: R06.00 Dyspnea, unspecified (principal) | CPT/HCPCS: 94762 ==

== ENCOUNTER → 2022-01-09 15:12 | Outpatient (CLI) | payer MEDICARE, SELFPAY ==
--- NOTE | 2022-01-09 15:15 | CT_ITS ---
FINAL REPORT TECHNIQUE: Axial images were obtained through the chest without contrast. This study was performed with techniques to keep radiation doses as low as reasonably achievable (ALARA). Individualized dose reduction techniques using automated exposure control or adjustment of mA and/or kV according to the patient's size were employed. CLINICAL HISTORY: CHRONIC RESPIRATORY FAILURE,DYSPNEA,H/O COVID 19 COMPARISON: 03/27/2021 FINDINGS: There is a large goiter with circumferential narrowing of the trachea. The trachea measures 7 mm in transverse dimension. There is no evidence of mediastinal mass or adenopathy. There is minimal chronic scarring at the bases. The heart size is normal. There is no pericardial or pleural effusion. Limited images of the upper abdomen reveal extensive fatty infiltration of the liver. The gallbladder is present. The spleen is unremarkable. No suspicious infiltrate or nodule identified. IMPRESSION: Circumferential narrowing of the trachea secondary to large goiter, slightly worse than previous. Fatty liver. Reviewed, Interpreted and Dictated by Thomas Monge MD Transcribed by Fernanda Yao Authenticated and [facility]
== END ==
PROVIDERS: PCP Family Medicine; Visit Provider Nurse Practitioner
DX: J96.11 Chronic respiratory failure with hypoxia; Z86.16 Personal history of COVID-19
CPT/HCPCS: 71250

== ENCOUNTER 2022-09-14 08:00 | Emergency (ER) | payer MEDICARE, SELFPAY ==
[2022-09-14 08:13] VITALS: BP 0/0; PULSE 0; RESP 0; TEMP -17.7; TEMP 0
== END 2022-09-14 08:15 | disposition left against medical advice (07) ==
LOC: UTC 08:03
PROVIDERS: Emergency Provider Nurse Practitioner; PCP Family Medicine
DX: Z53.21 Procedure and treatment not carried out due to patient leaving prior to being seen by health care provider (principal)
CPT/HCPCS: 99211

== ENCOUNTER → 2022-10-23 10:28 | Outpatient (CLI) | payer MEDICARE, SELFPAY ==
[2022-10-23 11:00] LABS: Basophils # 0.1 K/mm3 (0-0.2); Basophils % 0.7 % (0.1-2.0); Eosinophils # 0.2 K/mm3 (0.0-0.4); Eosinophils % 1.8 % (0.1-12.0); Hematocrit 46.1 % (42.0-52.0); Hemoglobin 14.7 g/dL (14.1-18.0); Lymphocytes # 1.6 K/mm3 (0.7-4.5); Lymphocytes % 13.1 % (10-50); Mean Corpuscular HGB Conc 31.9 g/dL (31.8-35.4); Mean Corpuscular Hemoglobin 27.9 pg (27.0-31.2); Mean Corpuscular Volume 87.7 fl (80-94); Mean Platelet Volume 8.1 fl (7.4-10.4); Monocytes # 0.6 K/mm3 (0.1-1.0); Monocytes % 4.6 % (1.7-9.3); Neutrophils # 9.7 K/mm3 (1.8-7.8); Neutrophils % 79.7 % (37.0-80.0); Platelet Count 241 K/mm3 (142-424); Red Blood Count 5.25 M/mm3 (4.60-6.20); Red Cell Distribution Width 14.7 % (11.5-17.5); White Blood Count 12.1 K/mm3 (4.8-10.8)
[2022-10-23 11:57] LABS: Alanine Aminotransferase 28 U/L (12-78); Albumin Level 3.7 g/dl (3.5-5.0); Alkaline Phosphatase 77 U/L (38-126); Anion Gap 11.6 mEq/L (5-15); Aspartate Amino Transferase 31 U/L (17-59); Bilirubin,Indirect 0.4 mg/dL (0.0-0.9); Bilirubin,Total 0.4 mg/dl (0.2-1.3); Bilirubin,Unconjugated 0.4 mg/dL (0.0-1.1); Blood Urea Nitrogen 23 mg/dl (9-20); Calcium 8.4 mg/dl (8.4-10.2); Carbon Dioxide 31 mmol/L (22.0-30.0); Chloride 97 mmol/L (98-107); Chol/HDL Ratio 4.9 (1-3.5); Cholesterol 188 mg/dl (140-200); Estimated Glomerular Filt Rate 65 ml/min (>60); GFR (African American) 79 ML/MIN (>60); Glucose 200 mg/dl (74-100); HDL Cholesterol 38 mg/dl (40-60); Magnesium 1.9 mg/dl (1.6-2.3); Potassium 4.6 mmoL/L (3.5-5.1); Sodium 135 mmol/L (136-145); Triglycerides 342 mg/dl (30-150); VLDL Cholesterol 68 mg/dL (0-40)
[2022-10-23 12:08] LABS: Direct LDL Cholesterol 100.76 mg/dL (100-129)
== END ==
PROVIDERS: PCP Family Medicine; Visit Provider Nurse Practitioner
DX: E66.9 Obesity, unspecified (principal); I10 Essential (primary) hypertension; I25.10 Atherosclerotic heart disease of native coronary artery without angina pectoris; I27.20 Pulmonary hypertension, unspecified; I51.9 Heart disease, unspecified; R06.09 Other forms of dyspnea; R94.31 Abnormal electrocardiogram [ECG] [EKG]; Z68.38 Body mass index [BMI] 38.0-38.9, adult
CPT/HCPCS: 36415; 80048; 80061; 80076; 83735; 85025

== ENCOUNTER → 2022-10-31 14:45 | Outpatient (CLI) | payer MEDICARE, SELFPAY | PROVIDERS: PCP Family Medicine; Visit Provider Nurse Practitioner Family | DX: E66.9 Obesity, unspecified (principal); I10 Essential (primary) hypertension; I25.10 Atherosclerotic heart disease of native coronary artery without angina pectoris; I27.20 Pulmonary hypertension, unspecified; I51.9 Heart disease, unspecified; R06.09 Other forms of dyspnea; R94.31 Abnormal electrocardiogram [ECG] [EKG]; Z68.38 Body mass index [BMI] 38.0-38.9, adult | CPT/HCPCS: 93306 ==

== ENCOUNTER → 2022-11-06 10:01 | Outpatient (CLI) | payer MEDICARE, SELFPAY ==
--- NOTE | 2022-11-06 10:05 | XR_ITS ---
FINAL REPORT CLINICAL HISTORY: foot pain FINDINGS: Left foot foot Three views were obtained. There is no acute fracture or dislocation. The bones are osteopenic. There are scattered degenerative changes, most pronounced in the medial midfoot. There is a lucent lesion in the base of the 5th proximal phalanx which is nonspecific, an enchondroma is considered a possibility or more localized osteopenia. No soft tissue abnormality is identified. IMPRESSION: No acute bony abnormality. Reviewed, Interpreted and Dictated by Arnaldo Stark MD Transcribed by Fernanda Yao Authenticated and [facility]
--- NOTE | 2022-11-06 10:05 | XR_ITS ---
FINAL REPORT CLINICAL HISTORY: Foot Pain FINDINGS: Right foot Three views were obtained. There is no acute fracture or dislocation. The bones are osteopenic. There are scattered degenerative changes, most pronounced in the medial midfoot. No soft tissue abnormality is identified. IMPRESSION: No acute bony abnormality. Reviewed, Interpreted and Dictated by Arnaldo Stark MD Transcribed by Fernanda Yao Authenticated and [facility]
== END ==
PROVIDERS: PCP Family Medicine; Visit Provider Nurse Practitioner Family
DX: M79.671 Pain in right foot (principal); M79.672 Pain in left foot
CPT/HCPCS: 73630

== ENCOUNTER 2023-01-29 13:46 | Outpatient (RCR) | payer MEDICARE, SELFPAY | END 2023-02-27 10:00 | disposition home or self-care (01) | LOC: PT 13:46 | PROVIDERS: Visit Provider Nurse Practitioner | DX: J44.9 Chronic obstructive pulmonary disease, unspecified (principal) | CPT/HCPCS: 93798; 94626 ==

== ENCOUNTER → 2023-05-31 12:51 | Outpatient (CLI) | payer MEDICARE, SELFPAY ==
--- NOTE | 2023-05-31 12:51 | CA_ITS ---
FINAL REPORT TECHNIQUE: Real-time imaging was performed of the extracranial carotid arteries in transverse and longitudinal planes, with color duplex evaluation of blood flow velocity. Spectral analysis was performed. The cervical vertebral arteries were also examined. CLINICAL HISTORY: dizziness, HTN, DM, obesity, ex smoker COMPARISON: None FINDINGS: NASCET technique is utilized for stenosis evaluation. Right carotid system (centimeters/second): CCA: 92 ICA: 56 ECA: 170 Vertebral artery: Antegrade ICA/CCA ratio: 0.7 Mild plaque is identified at the bifurcation. Left carotid system (centimeters/second): CCA: 132 ICA: 68 ECA: 93 Vertebral artery: Antegrade ICA/CCA ratio: 0.86 Mild plaque is identified at the bifurcation. IMPRESSION: Less than 50% right ICA stenosis. Less than 50% left ICA stenosis. Reviewed, Interpreted and Dictated by Thomsa Monge MD Transcribed by Nehal Peña Authenticated and [facility]
== END ==
PROVIDERS: PCP Family Medicine; Visit Provider Physician Assistant
DX: R42 Dizziness and giddiness (principal)
CPT/HCPCS: 93880

== ENCOUNTER → 2023-06-17 14:23 | Outpatient (CLI) | payer MEDICARE, SELFPAY ==
--- NOTE | 2023-06-17 14:32 | XR_ITS ---
FINAL REPORT CLINICAL HISTORY: PLEURISY COMPARISON: 01/09/2022 FINDINGS: 2 views of the chest were obtained . The heart is normal in size. The mediastinum is within normal limits. The lungs are clear. There is no pneumothorax. Osseous structures are unremarkable. IMPRESSION: No acute cardiopulmonary process. Reviewed, Interpreted and Dictated by Thomas Monge MD Transcribed by Wendy Mcmahon Authenticated and [facility]
== END ==
PROVIDERS: PCP Family Medicine; Visit Provider Family Medicine
DX: R09.1 Pleurisy (principal)
CPT/HCPCS: 71046

== ENCOUNTER 2024-01-06 09:32 | Outpatient (CLI) | payer MEDICARE, SELFPAY ==
--- NOTE | 2024-01-06 09:40 | CT_ITS ---
FINAL REPORT TECHNIQUE: Thin section axial images were obtained from the lung apices to the upper abdomen by computed tomography. Reformatted images were obtained and reviewed. This study was performed with techniques to keep radiation doses al low as reasonably achievable (ALARA). Individualized dose reduction techniques using automated exposure control or adjustment of mA and/or kV according to the patient's size were employed. CLINICAL HISTORY: FORMER SMOKER- quit 21 yrs ago. Smoked 1 PPD x40 yrs. COPD. COMPARISON: CT chest dated 01/09/2022 FINDINGS: CHEST CT LOW DOSE CTDI vol (mGy): 2.90 DLP (mGy-cm): 112.81 There has been interval thyroidectomy. There is no axillary adenopathy. There is no mediastinal or hilar mass or adenopathy. The heart is normal in size. Moderate left coronary artery calcifications are noted. There is bilateral gynecomastia. There is no pericardial or pleural effusion. There is mild emphysema and mild pulmonary scarring. Lung window images demonstrate no suspicious infiltrate or nodule. Limited images of the upper abdomen are unremarkable. IMPRESSION: Lung-RADS category 1. Recommend 12 month follow up low dose chest CT. Reviewed, Interpreted and Dictated by Otto Constantino III, MD Transcribed by Susie Chambers Authenticated and [facility]
== END 2024-01-06 23:59 | disposition home or self-care (01) ==
LOC: RAD 09:34
PROVIDERS: PCP Family Medicine; Visit Provider Family Medicine
DX: Z87.891 Personal history of nicotine dependence (principal)
CPT/HCPCS: 71271

== ENCOUNTER 2024-08-21 10:06 | Outpatient (CLI) | payer MEDICARE, SELFPAY ==
[2024-08-21 11:17] LABS: Albumin Level 4.1 g/dl (3.5-5.0); Chloride 101 mmol/L (98-107)
[2024-08-21 11:18] LABS: Potassium 5.4 mmoL/L (3.5-5.1); Sodium 138 mmol/L (136-145)
[2024-08-21 11:20] LABS: Alanine Aminotransferase 22 U/L (12-78); Anion Gap 12.4 mEq/L (5-15); Aspartate Amino Transferase 24 U/L (17-59); Blood Urea Nitrogen 21 mg/dl (9-20); Carbon Dioxide 30 mmol/L (22.0-30.0); Estimated Glomerular Filt Rate 65 ml/min (>60); GFR (African American) 79 ML/MIN (>60)
[2024-08-21 11:21] LABS: Albumin/Globulin Ratio 1.3 (1.1-1.8); Alkaline Phosphatase 65 U/L (38-126); Bilirubin,Total 0.5 mg/dl (0.2-1.3); Calcium 8.9 mg/dl (8.4-10.2); Chol/HDL Ratio 4.4 (1-3.5); Cholesterol 171 mg/dl (140-200); Globulin 3.1 g/dL (1.3-3.2); Glucose 228 mg/dl (74-100); HDL Cholesterol 39 mg/dl (40-60); Total Protein,Serum 7.2 g/dl (6.3-8.2); Triglycerides 204 mg/dl (30-150); VLDL Cholesterol 41 mg/dL (0-40)
[2024-08-21 11:32] LABS: Direct LDL Cholesterol 92.99 mg/dL (100-129)
[2024-08-21 11:38] LABS: T4 (Thyroxine) 11.9 ug/dl (5.53-11.0)
[2024-08-21 11:51] LABS: Thyroid Stimulating Hormone 0.46 uIU/mL (0.465-4.68)
[2024-08-21 12:20] LABS: Hemoglobin A1C 7.5 % (4.0-6.0)
== END 2024-08-21 23:59 | disposition home or self-care (01) ==
LOC: LAB 10:08
PROVIDERS: PCP Family Medicine; Visit Provider Family Medicine
DX: E11.42 Type 2 diabetes mellitus with diabetic polyneuropathy (principal); I10 Essential (primary) hypertension; E78.2 Mixed hyperlipidemia; E03.9 Hypothyroidism, unspecified
CPT/HCPCS: 36415; 80053; 80061; 83036; 84436; 84443

== ENCOUNTER 2024-10-16 19:24 | Emergency (ER) | payer MEDICARE, SELFPAY ==
[2024-10-16 19:27] VITALS: BP 123/53; PULSE 82; O2SAT 94
[2024-10-16 19:28] VITALS: BP 123/53; PULSE 82; RESP 22; TEMP 36.9; O2SAT 95; BMI 38.6
[2024-10-16 19:31] VITALS: BP 120/57; PULSE 81; O2SAT 97
--- OUTSIDE RECORDS SUMMARY | 2024-10-16 19:37 | XMS_ITS ---
Author Organization Unknown [facility] Start Date Provider Encounter for Check-up [id number] [facility]
[2024-10-16] MEDS: ONDANSETRON 4MG/2ML VIAL 4 MG IV (19:52)
[2024-10-16] MEDS: MORPHINE 4MG/ML SYRINGE 4 MG IV (19:52)
--- NOTE | 2024-10-16 19:52 | CT_ITS ---
PROCEDURE INFORMATION: Exam: CT Thoracic Spine Without Contrast Exam date and time: 10/16/2024 8:13 PM Age: 74 years old Clinical indication: Injury or trauma; Fall; Blunt trauma (contusions or hematomas); Additional info: Fall age >65 back/pelvic pain TECHNIQUE: Imaging protocol: Computed tomography of the thoracic spine without contrast. Radiation optimization: All CT scans at this facility use at least one of these dose optimization techniques: automated exposure control; mA and/or kV adjustment per patient size (includes targeted exams where dose is matched to clinical indication); or iterative reconstruction. COMPARISON: CT LUNG SCREENING 01/06/2024 9:41 AM FINDINGS: Bones/joints: No acute fracture. Normal alignment. No significant disc bulge or herniation. No severe spinal canal stenosis. Multilevel noxl-wh-yrljfami degenerative disc disease. Soft tissues: Unremarkable. IMPRESSION: No acute abnormality.
--- NOTE | 2024-10-16 19:52 | XR_ITS ---
PROCEDURE INFORMATION: Exam: XR Left Femur Exam date and time: 10/16/2024 8:22 PM Age: 74 years old Clinical indication: Injury or trauma; Fall; Blunt trauma; Thigh or upper leg; Left; Additional info: Fall age >65 back/pelvic pain TECHNIQUE: Imaging protocol: Radiologic exam of the left femur. Views: 2 views. COMPARISON: CT BONY PELVIS 10/16/2024 8:18 PM FINDINGS: Bones/joints: No acute fracture identified. No other significant bone or joint abnormality. Sclerotic lesions of the distal femur and proximal tibia redemonstrated. Soft tissues: Unremarkable. IMPRESSION: No acute findings.
--- NOTE | 2024-10-16 19:52 | CT_ITS ---
PROCEDURE INFORMATION: Exam: CT Cervical Spine Without Contrast Exam date and time: 10/16/2024 8:13 PM Age: 74 years old Clinical indication: Injury or trauma; Fall; Blunt trauma; Additional info: Fall age >65 back/pelvic pain TECHNIQUE: Imaging protocol: Computed tomography of the cervical spine without contrast. Radiation optimization: All CT scans at this facility use at least one of these dose optimization techniques: automated exposure control; mA and/or kV adjustment per patient size (includes targeted exams where dose is matched to clinical indication); or iterative reconstruction. COMPARISON: CT CERVICAL SPINE WO CON 03/13/2019 8:26 PM FINDINGS: Bones: No evident fracture. Degenerative changes of the C-spine most pronounced at C5-C6. Alignment and vertebral body heights are intact. Possible right-sided broad-based disc protrusion noted at C3-C4 with associated ahvelaii-ao-roevrz central canal narrowing not well demonstrated on this CT. Lungs: Lung apices are normal. Soft tissues: Unremarkable. IMPRESSION: 1. Degenerative changes. No acute abnormality. 2. Possible moderate-size right C3-C4 disc protrusion with potential vrltcbcj-li-nitjrl central canal narrowing and potential core compression not well assessed on this CT. Consider further assessment with MRI of the cervical spine.
--- NOTE | 2024-10-16 19:52 | CT_ITS ---
PROCEDURE INFORMATION: Exam: CT Head Without Contrast Exam date and time: 10/16/2024 8:10 PM Age: 74 years old Clinical indication: Injury or trauma; Fall; Blunt trauma (contusions or hematomas); Consciousness not specified; Additional info: Fall age >65 back/pelvic pain TECHNIQUE: Imaging protocol: Computed tomography of the head without contrast. Radiation optimization: All CT scans at this facility use at least one of these dose optimization techniques: automated exposure control; mA and/or kV adjustment per patient size (includes targeted exams where dose is matched to clinical indication); or iterative reconstruction. COMPARISON: CT HEAD/BRAIN WO CON 03/13/2019 8:21 PM FINDINGS: Brain: No intracranial hemorrhage. Generalized atrophic changes of the ventricles and subarachnoid spaces. Chronic small-vessel ischemic changes noted. No mass, mass effect or midline shift. Intracranial atherosclerotic changes are noted. Cerebral ventricles: See Brain finding. Paranasal sinuses: Visualized sinuses are unremarkable. No fluid levels. Mastoid air cells: Visualized mastoid air cells are well aerated. Bones: Unremarkable. No acute fracture. Soft tissues: Unremarkable. IMPRESSION: Stable noncontrast CT brain with chronic changes. No acute intracranial abnormality.
--- NOTE | 2024-10-16 19:52 | XR_ITS ---
PROCEDURE INFORMATION: Exam: XR Left Hip Exam date and time: 10/16/2024 8:31 PM Age: 74 years old Clinical indication: Injury or trauma; Fall; Blunt trauma (contusions or hematomas); Left; Hip; Additional info: Fall age >65 back/pelvic pain TECHNIQUE: Imaging protocol: Radiologic exam of the left hip. Views: 2 or 3 views hip with pelvis when performed. COMPARISON: CT BONY PELVIS 10/16/2024 8:18 PM FINDINGS: Bones/joints: Degenerative changes of the hips and SI joints. No acute fracture identified. Soft tissues: Unremarkable. IMPRESSION: No acute abnormality.
--- NOTE | 2024-10-16 19:52 | CT_ITS ---
PROCEDURE INFORMATION: Exam: CT Lumbar Spine Without Contrast Exam date and time: 10/16/2024 8:13 PM Age: 74 years old Clinical indication: Injury or trauma; Fall; Blunt trauma (contusions or hematomas); Additional info: Fall age >65 back/pelvic pain TECHNIQUE: Imaging protocol: Computed tomography of the lumbar spine without contrast. Radiation optimization: All CT scans at this facility use at least one of these dose optimization techniques: automated exposure control; mA and/or kV adjustment per patient size (includes targeted exams where dose is matched to clinical indication); or iterative reconstruction. COMPARISON: CT LUMBAR SPINE WO CON 03/13/2019 8:34 PM FINDINGS: Bones/joints: No acute fracture identified. Multilevel mild to moderate degenerative disc disease noted most pronounced at L4-L5 with associated mild degenerative anterolisthesis. Advanced facet arthritic changes at L4-L5. These findings result in jqscbxow-ob-qqowvk central canal and moderate bilateral foramina narrowing at L4-L5. Associated mildly bulging disc spur complexes at L2-L3, L3-L4, and L5-S1 with tfyp-hu-uzkjyczt bilateral foramina narrowing. Soft tissues: Unremarkable. IMPRESSION: 1. No acute abnormality. 2. Multilevel degenerative changes most pronounced at L4-L5 with nuxccjoa-rn-pbpvhz central canal and moderate bilateral foramina narrowing at this level.
--- NOTE | 2024-10-16 19:52 | CT_ITS ---
PROCEDURE INFORMATION: Exam: CT Pelvis Without Contrast, Skeleton Exam date and time: 10/16/2024 8:18 PM Age: 74 years old Clinical indication: Injury or trauma; Fall; Blunt trauma (contusions or hematomas); Bilateral; Pelvic region; Additional info: Fall age >65 back/pelvic pain TECHNIQUE: Imaging protocol: Computed tomography of the pelvis without contrast. Exam focused on the skeleton. Radiation optimization: All CT scans at this facility use at least one of these dose optimization techniques: automated exposure control; mA and/or kV adjustment per patient size (includes targeted exams where dose is matched to clinical indication); or iterative reconstruction. COMPARISON: CT ABDOMEN PELVIS W CON 03/13/2019 8:39 PM FINDINGS: Bones/joints: No acute fracture identified. Yblr-vb-gypukigs degenerative changes of both hips and mild degenerative changes of the SI joints noted. No other significant bone or joint abnormality. Soft tissues: Unremarkable. IMPRESSION: No acute abnormality.
--- NOTE | 2024-10-16 19:52 | XR_ITS ---
PROCEDURE INFORMATION: Exam: XR Left Knee Exam date and time: 10/16/2024 8:22 PM Age: 74 years old Clinical indication: Injury or trauma; Fall; Blunt trauma; Knee; Left; Additional info: Fall age >65 back/pelvic pain TECHNIQUE: Imaging protocol: Radiologic exam of the left knee. Views: 3 views. COMPARISON: 1. CR XR TIBIA FIBULA LT 2V 02/01/2021 9:00 PM 2. CR XR KNEE LT 3V 02/01/2021 9:00 PM FINDINGS: Bones/joints: No acute fracture identified. Tricompartmental mild and dpoo-jq-yqnoypfk degenerative changes most pronounced in the medial and patellofemoral compartments similar to previous. Stable appearing sclerotic lesions in the distal femur and proximal tibia compatible with benign process such as bone infarcts or benign chondroid lesions. Soft tissues: Normal. IMPRESSION: No acute abnormality. Chronic changes as above.
--- NOTE | 2024-10-16 19:53 | XR_ITS ---
PROCEDURE INFORMATION: Exam: XR Chest Exam date and time: 10/16/2024 8:31 PM Age: 74 years old Clinical indication: Injury or trauma; Fall; Blunt trauma (contusions or hematomas); Additional info: Fall age >65, pain TECHNIQUE: Imaging protocol: Radiologic exam of the chest. Views: 1 view. COMPARISON: 1. CT LUNG SCREENING 01/06/2024 9:41 AM 2. CR XR CHEST 2V 06/17/2023 2:35 PM FINDINGS: Lungs: Unremarkable. No consolidation. Pleural spaces: Unremarkable. No pleural effusion. No pneumothorax. Heart/Mediastinum: Unremarkable. No cardiomegaly. Bones/joints: Unremarkable. IMPRESSION: Stable chest x-ray with no acute disease.
[2024-10-16 21:34] VITALS: BP 116/83; PULSE 79; O2SAT 95
[2024-10-16] MEDS: LIDOCAINE 5% TRANSDERMAL PATCH 1 EACH TD (22:18)
[2024-10-16] MEDS: ACETAMINOPHEN 500MG TAB 1000 MG PO (22:19)
[2024-10-16] MEDS: METHOCARBAMOL 500MG TABLET 1000 MG PO (22:19)
[2024-10-16] MEDS: KETOROLAC 30MG/ML VIAL 15 MG IV (22:20)
[2024-10-16 23:39] VITALS: BP 153/82; PULSE 87; RESP 20; TEMP 36.7; O2SAT 100
--- NOTE | 2024-10-16 23:40 | PC.NURSE ---
IV discontinued. IV catheter tip intact. Bleeding controlled
--- NOTE | 2024-10-17 00:09 | ED_ITS ---
Discharge Plan Disposition Patient Disposition: Home, Self-Care Condition: Good Prescriptions Prescriptions: New methocarbamol 750 mg tablet 750 mg PO Q8H PRN (Reason: pain) Qty: 20 0RF No Action budesonide 0.25 mg/2 mL suspension for nebulization 0.25 mg INHALATION BID 90 Days Qty: 360 3RF albuterol sulfate 0.63 mg/3 mL solution for nebulization 0.63 mg INHALATION Q6H PRN (Reason: shortness of breath or wheezing) 90 Days Qty: 1080 2RF albuterol sulfate 90 mcg/actuation HFA aerosol inhaler 1 inh INHALATION Q6H PRN (Reason: shortness of breath or wheezing) 90 Days Qty: 8.5 3RF arformoterol 15 mcg/2 mL solution for nebulization 2 ml INHALATION BID 90 Days Qty: 180 3RF Humulin R U-500 (Conc) Kwikpen 500 unit/mL (3 mL) insulin pen 120 unit SQ TID metformin 1,000 mg tablet 1,000 mg PO BID aspirin 325 mg tablet 325 mg PO DAILY levothyroxine 175 mcg tablet 150 mcg PO DAILY furosemide 80 mg tablet See Rx Instructions .ROUTE .COMPLEX Qty: 180 3RF Dose Instruction: TAKE 1 TABLET BY MOUTH TWICE DAILY FOR HEART FAILURE Rx Instructions: TAKE 1 TABLET BY MOUTH TWICE DAILY FOR HEART FAILURE spironolactone 100 mg tablet 100 mg PO DAILY Qty: 90 3RF Referrals Follow up/Referrals: Agus Moore MD [Primary Care Provider] - See instructions Activity Restrictions/Add. Instructions Additional Instructions/Restrictions: You were evaluated in the emergency department today. At this time, your x-rays and CT scans are reassuring. Please peanut picker your prescription at the pharmacy and take as needed for pain. Also take Tylenol and ibuprofen every 4-6 hours as needed. syruper ijdi-ebn-hsxqjvg lidocaine patches and use as needed for pain. Follow-up closely with your primary care provider. Return to the emergency department for new or worsening symptoms. Clinical Impressions Clinical Impression: Fall, Coccygeal pain, Left buttock pain Instructions Patient Instructions: DI for Gluteal Strain, DI for Acute Pain -- Adult Print Language Print Language: [place] Discharge ED Provider: Leah Cordero General Adult HPI General Chief complaint: Fall Stated complaint: Fall Time Seen by Provider: 10/16/24 19:51 Mode of Arrival: EMS Source of Information: Patient and EMS Description of Symptoms (Recalled from ER Triage Doc. by RN): [facility] concrete block, his foot slipped between to pallets. pt reports he fell onto his back and hit his head. pt denies any LOC. pt was evaluated by EMS at the scene but denied transport until he got home and began to have increased pain History of Present Illness HPI narrative: This patient is a 74-year-old male with a history of hypertension, hyperlipidemia, АНДРЕЙ, COPD, CAD, type 2 diabetes presented to the emergency department for evaluation with concern for tailbone and left buttock pain after a mechanical ground-level fall. Patient states that earlier today his foot slipped between 2 pallets and fell back onto his butt and hit his head. He did not lose consciousness. He is evaluated by EMS at the scene and refused transport, but after going home he started having increasing pain in his left buttock this worse with movement and walking. No other concerns or complaints, such as new numbness, tingling, saddle anesthesia, or other concerns. He was well prior to the fall with no dizziness or preceding factors Related Data Home Medications ?Medication ?Instructions ?Recorded ?Confirmed metformin 1,000 mg tablet 1,000 mg PO BID Diabetes 08/29/17 06/08/24 aspirin 325 mg tablet 325 mg PO DAILY heart health 01/14/18 06/08/24 insulin regular hum U-500 conc 500 120 unit SQ TID 09/21/21 06/08/24 unit/mL(3 mL) subcut pen (Humulin R U-500 (Conc) Insulin Kwikpen) levothyroxine 175 mcg tablet 150 mcg PO DAILY 11/22/22 06/08/24 Previous Rx's ?Medication ?Instructions ?Recorded albuterol sulfate 0.63 mg/3 mL 0.63 mg (3 mL) inhalation Q6H PRN 07/25/21 solution for nebulization shortness of breath or wheezing 90 days #1,080 mL albuterol sulfate 90 mcg/actuation 1 inh inhalation Q6H PRN shortness 07/25/21 aerosol inhaler of breath or wheezing 90 days #8.5 grams budesonide 0.25 mg/2 mL suspension 0.25 mg (2 mL) inhalation BID 90 07/25/21 for nebulization days #360 mL arformoterol 15 mcg/2 mL solution 2 ml inhalation BID 90 days #180 mL 07/26/21 for nebulization furosemide 80 mg tablet See Rx Instructions .Route 01/13/24 .COMPLEX #180 tabs spironolactone 100 mg tablet 100 mg PO DAILY #90 tabs 07/09/24 methocarbamol 750 mg tablet 750 mg PO Q8H PRN pain #20 tabs 10/16/24 Allergies Allergy/AdvReac Type Severity Reaction Status Date / Time No Known Allergies Allergy Verified 06/08/24 11:03 [facility] Disclaimer: The information contained in this section may have been updated after the patient was seen, as this information can be updated by other users. Medical History Encounter for pre-operative cardiovascular clearance Abnormal cardiovascular stress test Atypical angina Dizziness Social History Smoking Status: Never smoker second hand exposure: No alcohol intake: never substance use type: denies use current occupational status: retired Travel in the last 8 weeks: Inside the [place] household members: spouse housing: house current occupational exposures/hazards: No caffeine: Yes Have you lived/traveled outside [place] in past 30 days?: No Contact w/someone who lives/traveled outside [place] past 30 days?: No Exposure to someone with infectious disease in past 14 days?: No Do you have a fever (greater than 100.4 F or 38 C)?: No Have you tested positive for COVID-19: No Exposed to someone with COVID-19 in past 14 days?: No Do you have a sore throat?: No Do you have a cough?: No Do you have any weakness?: No Do you have any diarrhea?: No Are you experiencing any unusual bleeding?: No Do you have any muscle aches/pain?: No Do you have any abdominal pain?: No Are you experiencing loss of taste or smell?: No Other Medical History Have you received the Flu Vaccine for this season: No Have you received the Pneumonia Vaccine: Yes ROS Obtained: Yes All systems reviewed & no additional complaints except as documented Physical Exam General General appearance: alert and in no apparent distress Head Head exam: atraumatic and normocephalic Eye Eye exam: Present normal appearance, PERRL and EOMI ENT ENT exam: Present normal exam, normal oropharynx, mucous membranes moist and normal external ear exam Neck Neck exam: Present normal inspection, full ROM and trachea midline; Absent tenderness Chest Chest inspection: Present normal inspection and symmetric chest wall rise; Absent tenderness Respiratory Respiratory exam: Present normal lung sounds bilaterally; Absent respiratory distress, wheezes, stridor or accessory muscle use Cardiovascular Cardiovascular exam: Present regular rate and normal rhythm Abdominal Exam Abdominal exam: Present soft; Absent distention, tenderness or guarding Extremities Exam Extremities exam: Present normal inspection, full ROM and normal capillary refill; Absent tenderness or edema Back Exam Back exam: Present full ROM and tenderness (Tailbone left buttock tenderness to palpation) Neurological Exam Neurological exam: Present alert, oriented X3, CN II-XII intact and normal gait; Absent motor sensory deficit Psychiatric Psychiatric exam: Present normal affect and normal mood Skin Skin exam: Present warm and dry Medical Decision Making Medical Records Medical records reviewed: Yes I reviewed the patient's medical records. Screening: Per USPSTF and CDC recommendations, given the prevalence of disease in our region, it is our hospital?s policy to screen for HIV and viral Hepatitis for all patients aged 18 and over and those with ongoing risk factors. Charles Inquiry Pt receiving controlled substance: No Vital Signs: 10/16/24 19:27 10/16/24 19:28 10/16/24 19:31 Temperature 98.4 F Temperature Source Oral Pulse Rate 82 81 Pulse Rate [Right] 82 Respiratory Rate 22 Blood Pressure 123/53 L 120/57 L Blood Pressure [Right Arm] 123/53 L Blood Pressure Mean [Right Arm] 76 Blood Pressure Source Blood Pressure Position 02 Sat by Pulse Oximetry 94 L 95 97 Oxygen Delivery Method Nasal Cannula Oxygen Flow Rate (LPM) 3 10/16/24 21:34 10/16/24 23:39 Temperature 98.1 F Temperature Source Pulse Rate 79 87 Pulse Rate [Right] Respiratory Rate 20 Blood Pressure 116/83 153/82 H Blood Pressure [Right Arm] Blood Pressure Mean [Right Arm] Blood Pressure Source Automatic Cuff Blood Pressure Position Sitting 02 Sat by Pulse Oximetry 95 Oxygen Delivery Method Room Air Oxygen Flow Rate (LPM) Lab Data Lab results reviewed: Yes I reviewed the patient's lab results. Orders (Tests/Meds): ED MEDICATIONS Discontinued Medications Generic Name Dose Route Start Last Admin Trade Name Freq PRN Reason Stop Dose Admin Acetaminophen 1,000 mg 10/16/24 22:09 10/16/24 22:19 Acetaminophen 500mg Tab PO 10/16/24 22:10 1,000 mg ONCE ONE Administration Ketorolac Tromethamine 15 mg 10/16/24 22:09 10/16/24 22:20 Ketorolac 30mg/Ml Vial IV 10/16/24 22:10 15 mg ONCE ONE Administration Lidocaine 1 each 10/16/24 22:09 10/16/24 22:18 Lidocaine 5% Transdermal Patch TD 10/16/24 22:10 1 each ONCE ONE Administration Methocarbamol 1,000 mg 10/16/24 22:10 10/16/24 22:19 Methocarbamol 500mg Tablet PO 10/16/24 22:11 1,000 mg ONCE ONE Administration Morphine Sulfate 4 mg 10/16/24 19:48 10/16/24 19:52 Morphine 4mg/Ml Syringe IV 10/16/24 19:49 4 mg ONCE ONE Administration Ondansetron HCl 4 mg 10/16/24 19:48 10/16/24 19:52 Ondansetron 4mg/2ml Vial IV 10/16/24 19:49 4 mg ONCE ONE Administration ORDERS Category Date Time Status CT bony pelvis Stat Cat Scan 10/16/24 19:[address] cervical spine wo con Stat Cat Scan 10/16/24 19:[address] head/brain wo con Stat Cat Scan 10/16/24 19:[address] lumbar spine wo con Stat Cat Scan 10/16/24 19:[address] thoracic spine wo con Stat Cat Scan 10/16/24 19:52 Completed CXR --portable [XR chest portable] Stat Exams 10/16/24 19:53 Completed Femur XR left 2 views [XR femur LT 2V] Stat Exams 10/16/24 19:52 Completed Hip XR left minimum 2 views [XR hip LT 2-3V w/pelvis] Exams 10/16/24 19:52 Completed Stat Knee XR left 3 views [XR knee LT 3V] Stat Exams 10/16/24 19:52 Completed Medical Decision Narrative: In summary, this patient is a 74-year-old male presenting to the Emergency Department for evaluation of fall with tailbone and left buttock pain. Differential diagnoses considered include but are not limited to head trauma, spine trauma, pelvic fracture, hip fracture, musculoskeletal strain/sprain, intracranial hemorrhage. Ruling out the most morbid conditions drove assessment. It should be noted patient's history includes obesity, type 2 diabetes, hypertension, hyperlipidemia, АНДРЕЙ among others which may or may not be at goal therapy. This complicates all aspects of care by increasing patient's risk for morbidity. On exam, patient is lying in bed in no acute distress with complaints of tailbone and left buttock pain. He is neurologically intact in his lower extremities. No other concerns or complaints noted he is otherwise well- appearing on clinical exam with reassuring vitals on cardiac telemetry. Workup included CT head, CT spines, chest x-ray, CT pelvis, x-rays of the left hip, femur, knee. He was given IV morphine and Zofran initially for pain control. I independently interpreted CT and x-ray prior to the radiologist read and noted no obvious acute fracture or intracranial hemorrhage. Please see their read for final interpretation. They noted cervical disc herniation with canal stenosis, lumbar disc herniation with canal stenosis. Patient is not tender over these areas and has no neck or low back pain, only tailbone pain and left buttock pain. He is neurologically intact in his lower extremities with no findings concerning for spinal cord compression or cauda equina syndrome. He had good improvement in his pain after administration of multimodal pain control with Lidoderm, Robaxin, Toradol, Tylenol. He is ambulatory without issue. Given this, it is felt that he is appropriate for discharge home with instructions for supportive management of likely musculoskeletal strain. He was given instructions for close follow-up as an outpatient and strict return precautions. He was discharged after all questions were answered with instructions for follow-up with his primary care provider for further maintenance of his spine abnormalities on imaging Critical Care Critical Care Time Critical Care Time: No
--- NOTE | 2024-10-18 09:33 | PC.NURSE ---
called ans states pt is hurting real bad and didn't sleep at all last night , she is asking for the Doctor to send in something stronger that will make him sleep . I reviewed with and pt the d/c instructions and medications Dr Crodero sent on Monday 10/16. states pt has only taken 2 doses of Methocarbamol and Tylenol this AM only. Denies any Ibuprofen or Lidocaine patch use. I let pt know the ER provider on currently is unable to send in new medications but we would be glad to see pt anytime for re-evaluation by an ER provider to attempt to get his pain under control. states she pt cannot wait until Saturday to see Dr Moore. I again let pt know we would be glad to see pt in ER or I can send her to the booster pump operator and they can page whomever is on-call for Dr Moore today and that PCP provider can possible send in a new prescription. and pt preferred that option. I transferred call to operate after I explain their request to the booster pump operator.
== END 2024-10-16 23:40 | disposition home or self-care (01) ==
PROVIDERS: Emergency Provider Emergency Medicine; PCP Family Medicine
DX: M53.3 Sacrococcygeal disorders, not elsewhere classified (principal); M54.9 Dorsalgia, unspecified; W19.XXXA Unspecified fall, initial encounter
CPT/HCPCS: 70450; 71045; 72125; 72128; 72131; 72192; 73502; 73552; 73562; 96374; 96375; 99285; J1885; J2270; J2405

== ENCOUNTER 2024-10-18 12:50 | Emergency (ER) | payer MEDICARE, SELFPAY ==
[2024-10-18 13:11] VITALS: BP 167/69; PULSE 81; RESP 18; TEMP 36.9; O2SAT 95; BMI 39.3
--- NOTE | 2024-10-18 13:12 | ED_ITS ---
<Statement entered by Sue Donahue MD - 10/18/24 15:11> I was consulted by the ANANTH, and we discussed the complexity of the problems being addressed. I approved the treatment and management plan for this patient's care in the emergency department, thus performing a substantive portion of the medical decision making. Sue Donahue MD, JACOB, FACEP Discharge Plan Disposition Patient Disposition: Home, Self-Care Prescriptions Prescriptions: New lidocaine [Lidoderm] 5 % adhesive patch,medicated 1 patch topical DAILY 7 Days Qty: 7 0RF Rx Instructions: leave on most painful area for up to 12 hrs cyclobenzaprine 5 mg tablet 5 mg PO DAILY PRN (Reason: muscle spasm) 7 Days Qty: 14 0RF No Action budesonide 0.25 mg/2 mL suspension for nebulization 0.25 mg INHALATION BID 90 Days Qty: 360 3RF albuterol sulfate 0.63 mg/3 mL solution for nebulization 0.63 mg INHALATION Q6H PRN (Reason: shortness of breath or wheezing) 90 Days Qty: 1080 2RF albuterol sulfate 90 mcg/actuation HFA aerosol inhaler 1 inh INHALATION Q6H PRN (Reason: shortness of breath or wheezing) 90 Days Qty: 8.5 3RF arformoterol 15 mcg/2 mL solution for nebulization 2 ml INHALATION BID 90 Days Qty: 180 3RF Humulin R U-500 (Conc) Kwikpen 500 unit/mL (3 mL) insulin pen 120 unit SQ TID metformin 1,000 mg tablet 1,000 mg PO BID aspirin 325 mg tablet 325 mg PO DAILY levothyroxine 175 mcg tablet 150 mcg PO DAILY furosemide 80 mg tablet See Rx Instructions .ROUTE .COMPLEX Qty: 180 3RF Dose Instruction: TAKE 1 TABLET BY MOUTH TWICE DAILY FOR HEART FAILURE Rx Instructions: TAKE 1 TABLET BY MOUTH TWICE DAILY FOR HEART FAILURE spironolactone 100 mg tablet 100 mg PO DAILY Qty: 90 3RF methocarbamol 750 mg tablet 750 mg PO Q8H PRN (Reason: pain) Qty: 20 0RF Referrals Follow up/Referrals: Agus Moore MD [Primary Care Provider] - See instructions Activity Restrictions/Add. Instructions Additional Instructions/Restrictions: Today you were evaluated in the emergency department for back pain. Please stop the methocarbamol prescription that you were previously given. You may take the cyclobenzaprine 5mg, this is a muscle relaxer, and it may make you drowsy so do not drive or operate any machinery after taking this. Please rest. You may use heat or ice on your lower back. Please take additional Tylenol and ibuprofen [id number] for symptomatic relief as well. Please get a doughnut pillow to help you sit comfortably. You will need to follow-up with your primary care provider within 7 days of being seen in the emergency department. Please return to the emergency department if you have any worsening of your condition. Clinical Impressions Clinical Impression: Back pain Qualifiers: Back pain location: low back pain Chronicity: acute Back pain laterality: unspecified Sciatica presence: without sciatica Qualified Code(s): M54.50 - Low back pain, unspecified Instructions Patient Instructions: Low Back Pain, DI for Acute Pain -- Adult Print Language Print Language: Georgian Discharge ED Provider: Sue Donahue General Adult HPI General Chief complaint: PAIN Stated complaint: AO 10/16 back pain/leg pain follow up Time Seen by Provider: 10/18/24 12:56 History of Present Illness HPI narrative: Patient is a 74-year-old male PMHx obesity, DMT2, history of acute on chronic respiratory failure, history of elevated troponins, angina, pulmonary hypertension, АНДРЕЙ, COPD (3L NC), HTN, CAD who presents to the ED for tailbone pain since a fall that occurred a few days ago. Related Data Home Medications ?Medication ?Instructions ?Recorded ?Confirmed metformin 1,000 mg tablet 1,000 mg PO BID Diabetes 08/29/17 06/08/24 aspirin 325 mg tablet 325 mg PO DAILY heart health 01/14/18 06/08/24 insulin regular hum U-500 conc 500 120 unit SQ TID 09/21/21 06/08/24 unit/mL(3 mL) subcut pen (Humulin R U-500 (Conc) Insulin Kwikpen) levothyroxine 175 mcg tablet 150 mcg PO DAILY 11/22/22 06/08/24 Previous Rx's ?Medication ?Instructions ?Recorded albuterol sulfate 0.63 mg/3 mL 0.63 mg (3 mL) inhalation Q6H PRN 07/25/21 solution for nebulization shortness of breath or wheezing 90 days #1,080 mL albuterol sulfate 90 mcg/actuation 1 inh inhalation Q6H PRN shortness 07/25/21 aerosol inhaler of breath or wheezing 90 days #8.5 grams budesonide 0.25 mg/2 mL suspension 0.25 mg (2 mL) inhalation BID 90 07/25/21 for nebulization days #360 mL arformoterol 15 mcg/2 mL solution 2 ml inhalation BID 90 days #180 mL 07/26/21 for nebulization furosemide 80 mg tablet See Rx Instructions .Route 01/13/24 .COMPLEX #180 tabs spironolactone 100 mg tablet 100 mg PO DAILY #90 tabs 07/09/24 methocarbamol 750 mg tablet 750 mg PO Q8H PRN pain #20 tabs 10/16/24 cyclobenzaprine 5 mg tablet 5 mg PO DAILY PRN muscle spasm 7 10/18/24 days #14 tabs lidocaine 5 % topical patch 1 patch topical DAILY 7 days #7 ea 10/18/24 (Lidoderm) Allergies Allergy/AdvReac Type Severity Reaction Status Date / Time No Known Allergies Allergy Verified 06/08/24 11:03 [facility] Disclaimer: The information contained in this section may have been updated after the patient was seen, as this information can be updated by other users. Medical History Encounter for pre-operative cardiovascular clearance Abnormal cardiovascular stress test Atypical angina Dizziness Social History Smoking Status: Never smoker second hand exposure: No alcohol intake: never substance use type: denies use current occupational status: retired Travel in the last 8 weeks: Inside the [place] household members: spouse housing: house current occupational exposures/hazards: No caffeine: Yes Have you lived/traveled outside [place] in past 30 days?: No Contact w/someone who lives/traveled outside US past 30 days?: No Exposure to someone with infectious disease in past 14 days?: No Do you have a fever (greater than 100.4 F or 38 C)?: No Have you tested positive for COVID-19: No Exposed to someone with COVID-19 in past 14 days?: No Do you have a sore throat?: No Do you have a cough?: No Do you have any weakness?: No Do you have any diarrhea?: No Are you experiencing any unusual bleeding?: No Do you have any muscle aches/pain?: No Do you have any abdominal pain?: No Are you experiencing loss of taste or smell?: No Other Medical History Have you received the Flu Vaccine for this season: No Have you received the Pneumonia Vaccine: Yes ROS Obtained: Yes Systems reviewed as appropriate & no additional complaints except as documented Physical Exam General General appearance: alert and in no apparent distress Comment: obsese Head Head exam: atraumatic and normocephalic Eye Eye exam: Present normal appearance and PERRL ENT ENT exam: Present normal exam Neck Neck exam: Present normal inspection Chest Chest inspection: Present normal inspection and symmetric chest wall rise; Absent tenderness Respiratory Respiratory exam: Present normal lung sounds bilaterally; Absent respiratory distress Cardiovascular Cardiovascular exam: Present regular rate Abdominal Exam Abdominal exam: Present soft and normal bowel sounds; Absent distention or tenderness Extremities Exam Extremities exam: Present normal inspection Neurological Exam Neurological exam: Present alert, oriented X3 and other (equal bilateral lower extremities strength and sensation, lower back pain upon left leg raise) Psychiatric Psychiatric exam: Present normal affect and normal mood Skin Skin exam: Present warm and dry Medical Decision Making Medical Records Screening: Per USPSTF and CDC recommendations, given the prevalence of disease in our region, it is our hospital?s policy to screen for HIV and viral Hepatitis for all patients aged 18 and over and those with ongoing risk factors. Charles Inquiry Pt receiving controlled substance: No Vital Signs: 10/18/24 13:11 10/18/24 14:00 10/18/24 14:30 Temperature 98.4 F Temperature Source Oral Pulse Rate 70 61 Pulse Rate [Right Radial] 81 Respiratory Rate 18 Blood Pressure 104/52 L 126/56 L Blood Pressure [Right Arm] 167/69 H Blood Pressure Mean [Right Arm] 101 Blood Pressure Source [Right Arm] Automatic Cuff Blood Pressure Position [Right Arm] Sitting 02 Sat by Pulse Oximetry 95 96 96 Oxygen Delivery Method Nasal Cannula Nasal Cannula Oxygen Flow Rate (LPM) 3 10/18/24 15:00 10/18/24 15:09 Temperature 98.5 F Temperature Source Pulse Rate 61 62 Pulse Rate [Right Radial] Respiratory Rate 18 Blood Pressure 100/51 L 126/56 L Blood Pressure [Right Arm] Blood Pressure Mean [Right Arm] Blood Pressure Source [Right Arm] Blood Pressure Position [Right Arm] 02 Sat by Pulse Oximetry 93 L Oxygen Delivery Method Room Air Oxygen Flow Rate (LPM) Lab Data Lab Results 10/18/24 13:11: HCV Ab ZOHRA w/Rflx PCR Qn Negative, HIV Ag/Ab Combo Qual Negative Orders (Tests/Meds): ED MEDICATIONS Discontinued Medications Generic Name Dose Route Start Last Admin Trade Name Oluq PRN Reason Stop Dose Admin Acetaminophen 1,000 mg 10/18/24 13:10 10/18/24 13:18 Acetaminophen 1,000mg/100ml Vial IV 10/18/24 13:11 1,000 mg ONCE ONE Administration Cyclobenzaprine HCl 10 mg 10/18/24 13:14 10/18/24 13:23 Cyclobenzaprine 10mg Tablet PO 10/18/24 13:15 10 mg ONCE ONE Administration Hydromorphone HCl 1 mg 10/18/24 14:08 10/18/24 14:15 Hydromorphone 2mg/Ml Syringe IV 10/18/24 14:09 1 mg ONCE ONE Administration Ketorolac Tromethamine 15 mg 10/18/24 13:10 10/18/24 13:18 Ketorolac 30mg/Ml Vial IV 10/18/24 13:11 15 mg ONCE ONE Administration Lidocaine 1 each 10/18/24 13:10 10/18/24 13:17 Lidocaine 5% Transdermal Patch TD 10/18/24 13:11 1 each ONCE ONE Administration ORDERS Category Date Time Status HIV Combo Stat Lab 10/18/24 13:11 Completed Hepatitis C Ab Qual. W/ RFX Stat Lab 10/18/24 13:11 Completed Medical Decision Narrative: In summary, patient is a 74-year-old male PMHx obesity, DMT2, history of acute on chronic respiratory failure, history of elevated troponins, angina, pulmonary hypertension, АНДРЕЙ, COPD (3L NC), HTN, CAD who presents to the ED for tailbone pain since a fall that occurred a few days ago. Patient states that he fell in the lawn and garden section at [facility] onto his back, then was evaluated in this ED on 10/16 and was able to achieve pain relief. He states that he was discharged with methocarbamol which she has been taking but does not seem to provide relief. He states that he is having minimal left leg feeling funny . He denies any issues with sensation, motor ability, denies incontinence of bowel or bladder, denies saddle anesthesia. Patient denies any falls since being ev aluated on 10/16/2024. He states that at baseline he walks with a walker however is having difficulty doing that due to the back pain. Upon initial evaluation patient is alert, oriented and cooperative. He is obese. He has equal bilateral lower extremity motor ability, sensation intact. Pain with left leg raise. Records reviewed, on 10/16/2024 patient had chest x-ray, Thoracics spine CT, pelvis CT, lumbar spine CT, knee x-ray, hip x-ray, head CT, femur x-ray, cervical spine CT which were unremarkable from any acute traumatic injury. Discussed with patient and family that I do not feel we need to rescan today however we can attempt additional pain control at this time. Upon reassessment, patient states that his back pain is now a 5/10, states that he is feeling much better. Given this, I feel that he is safe to be discharged home at this time. He remains alert and oriented, hemodynamically stable during his ED stay. I discussed with him that he should stop the methocarbamol and I will give a prescription for cyclobenzaprine. I discussed patient to caution driving or operating machinery after taking cyclobenzaprine as it may make him drowsy. I advised him to use acetaminophen and ibuprofen [id number] for symptomatic relief. We discussed using a doughnut pillow, heat or ice to the affected area. Advised him to follow-up with his primary care provider within 7 days. We discussed return precautions to the ED patient was able to verbalized understanding of all discharge instructions. Critical Care Critical Care Time Critical Care Time: No
[2024-10-18] MEDS: LIDOCAINE 5% TRANSDERMAL PATCH 1 EACH TD (13:17)
[2024-10-18] MEDS: ACETAMINOPHEN 1,000MG/100ML VIAL 1000 MG IV (13:18)
[2024-10-18] MEDS: KETOROLAC 30MG/ML VIAL 15 MG IV (13:18)
[2024-10-18] MEDS: CYCLOBENZAPRINE 10MG TABLET 10 MG PO (13:23)
[2024-10-18 14:00] VITALS: BP 104/52; PULSE 70; O2SAT 96
--- NOTE | 2024-10-18 14:04 | PC.NURSE ---
patient states his pain is still a 01/07. provider notified. call light in reach
[2024-10-18] MEDS: HYDROMORPHONE 2MG/ML SYRINGE 1 MG IV (14:15)
[2024-10-18 14:25] LABS: HIV Combo NEGATIVE (Negative)
[2024-10-18 14:30] VITALS: BP 126/56; PULSE 61; O2SAT 96
[2024-10-18 14:35] LABS: Hepatitis C Ab Qual. W/ RFX NEGATIVE (Negative)
[2024-10-18 15:00] VITALS: BP 100/51; PULSE 61; O2SAT 93
[2024-10-18 15:09] VITALS: BP 126/56; PULSE 62; RESP 18; TEMP 36.9; O2SAT 95
== END 2024-10-18 15:10 | disposition home or self-care (01) ==
PROVIDERS: Nurse Practitioner; Emergency Provider Student in an Organized Health Care Education/Training Program; PCP Family Medicine
DX: M54.50 Low back pain, unspecified (principal); W19.XXXA Unspecified fall, initial encounter; Z11.59 Encounter for screening for other viral diseases; Z11.4 Encounter for screening for human immunodeficiency virus [HIV]
CPT/HCPCS: 86803; 87389; 96374; 96375; 99285; J0131; J1171; J1885

== ENCOUNTER 2025-03-26 12:54 | Outpatient (CLI) | payer MEDICARE, SELFPAY ==
--- OUTSIDE RECORDS SUMMARY | 2024-09-28 14:10 | XMS_ITS | Encounter Summary ---
Author Organization [facility] Address [address] [place] [address] Care Team Providers Care Technology Lab Teacher Name Role Phone Agus Moore MD Primary Care Provider [phone] Reason for Referral * Consultation (Routine) - Authorized Specialty Diagnoses / Procedures Referred By Contac t Referred To Contact Diagnoses Dyspnea on exertion Moderate COPD (chronic obstructive pulmonary disease) (CMS/HCC) Jordan Silva APRN [address] [address] Phone: tel: fax: Referral ID Status Reason Start Date Expiration Date V isits Requested Visits Authorized [id number] Authorized 09/28/2024 03/30/2026 1 1 Reason for Visit * Reason Comments COPD Centrilobular emphysema Encounter Details Date Type Department Care Team (Late st Contact Info) Description 09/28/2024 2:10 PM EDT Office Visit [place] [facility] [address] [place] [address] Jordan Silva APRN [address] [facility] [address] [place] [address] Dyspnea on exertion (Primary Dx); Chronic obstructive pulmonary disease, unspecified COPD type (CMS/HCC); Moderate COPD (chronic obstructive pulmonary disease) (CMS/HCC); Centrilobular emphysema (CMS/HCC); Diastolic dysfunction; History of COVID-19; Physical deconditioning; Class 3 severe obesity with body mass index (BMI) of 40.0 to 44.9 in adult, unspecified obesity type, unspecified whether serious comorbidity present (CMS/HCC); Chronic respiratory failure with hypoxia (CMS/HCC); Coronary artery disease involving ivanof bay heart, unspecified vessel or lesion type, unspecified whether angina present Social History Tobacco Use Types Packs/Day Years Used Date Smoking Tobacco: Former Cigarettes 2 45 1 - 2002 Passive Smoke Exposure: Never Smokeless Tobacco: Never Alcohol Use Standard Drinks/Week Comments Never 0 (1 standard drink = 0.6 oz pur e alcohol) PHQ-2 Answer Date Recorded Patient Health Questionnaire-2 Score 0 09/28/2024 PHQ-9 Answer Date Recorded Patient Health Questionnaire-9 Score 0 09/28/2024 AUDIT-C Answer Date Recorded Q1: How often do you have a drink containing alcohol? Never 02/16/2025 Q2: How many drinks containi ng alcohol do you have on a typical day when you are drinking? Patient does not drink Q3: How often do you have si x or more drinks on one occasion? Never 02/16/2025 PHQ-2A Answer Date Recorded Patient Health Questionnaire-2 Score 0 10/04/2022 Sex and Gender Information Value Date Recorded Sex Assigned at Not on file Legal Sex Male 6:33 PM EDT Gender Identity Not on file Sexual Orientation Not on file documented as of this encounter Last Filed Vital Signs Vital Sign Reading Time Taken Comments Blood Pressure 136/63 09/28/2024 2:17 PM EDT Pulse 71 09/28/2024 2:17 PM EDT Temperature 36.8 C (98.2 F) 09/28/2024 2:17 PM EDT Respiratory Rate - - Oxygen Saturation 89% 09/28/2024 2:17 PM EDT RA Inhaled Oxygen Concentration - - Weight 132 kg (291 lb 14.2 oz) 09/28/2024 2:17 P M EDT Height 182.9 cm (6') 09/28/2024 2:17 PM EDT Body Mass Index 39.59 09/28/2024 2:17 PM EDT documented in this encounter Functional Status * AUDIT-C Score Answer Date of Assessment Author 0 02/16/2025 2:00 PM EDT Shikha Hooper * Question Answer Date of Assessment Author Q1: How often do you have a drink containing alcohol? Never 02/16/2025 2:00 PM EDT Shikha Montano Q2: How many drinks containing alcohol do you have on a typical day when you are drinking? Patient does not drink 02/16/2025 2:00 PM EDT Shikha Bland Q3: How often do you have six or more drinks on one occasion? Never 02/16/2025 2:00 PM EDT Shikha Montano * Over the past 2 weeks, how often have you been bothered by any of the following problems? Question Answer Date of Assessment Author Little interest or pleasure in doing things Not at all 09/28/2024 2:28 PM EDT Jose Strange Feeling down, depressed, or hopeless Not at all 09/28/2024 2:28 PM EDT Jose Strange Patient Health Questionnaire -2 Score 0 09/28/2024 2:28 PM EDT Jose Strange * Question Answer Date of Assessment Author Trouble falling or staying a sleep, or sleeping too much Not at all 09/28/2024 2:28 PM EDT Jose Strange Feeling tired or having josefa le energy Not at all 09/28/2024 2:28 PM LETTYT Jose Strange Poor appetite or overeating Not at all 09/28/2024 2: 28 PM LETTYT Jose Strange Feeling bad about yourself - or that you are a failure or have let yourself or your family down Not at all 09/28/2024 2:28 PM EDT Jose Strange Trouble concentrating on thi ngs, such as reading the newspaper or watching television Not at all 09/28/2024 2:28 PM ELTTYT Jose Strange Moving or speaking so slowly that other people could have noticed? Or the opposite - being so fidgety or restless that you have been moving around a lot more than usual. Not at all 09/28/2024 2:28 PM EDT Jose Strange Thoughts that you would be b renzo off or hurting yourself in some way Not at all 09/28/2024 2:28 PM EDT Jose Strange Patient Health Questionnaire -9 Score 0 09/28/2024 2:28 PM EDT Jose Strange * How difficult have these problems made it for you to do your work, take care of things at home, or get along with other people? Answer Date of Assessment Author Not difficult at all 09/28/2024 2:28 PM EDT Jose Rodas documented as of this encounter Miscellaneous Notes * Addendum Note - Jordan Silva APRN - 09/28/2024 2:10 PM EDTAddended by: JORDAN SILVA on: 03/19/2025 01:48 PM Modules accepted: Orders * Progress Notes - Jordan Silva APRN - 09/28/2024 2:10 PM EDT PULMONARY FOLLOW-UP OUTPATIENT NOTE: Patient ID/Chief Complaint: .Robert Massey is a 74 y.o. male presenting for follow up of COPD and post COVID syndrome. His PMHx includes allergic rhinitis, GERD, HTN, DMT2, BPH, obesity, CAD, diastolic dysfunction. Chief Complaint Patient presents with COPD Centrilobular emphysema History of Present Illness: Here for routine follow up of COPD. Feels dyspnea is worsening. He states he was given antbx and steroids a couple of weeks ago for a flare. Cough productive of yellow sputum. He states this is improving. Restarted pulmonary rehab however had to stop when his had a stroke. He has portable tanks but these are too hard for him to carry around. He uses [facility] as his DME however they do not have lightweight tanks. He would really like to look into [employer]. Sleeps with 3L at night. He did actually attempt to wear a CPAP again 6 months ago but could not tolerate despite trying different masks. He has now had RSV vaccine, got in December. LDCT neg, due December 2024- to be done at [facility] He is on lasix 80 mg BID and spironolactone. On nebulized yupelri. Not using albuterol too often right now in his nebulizer, but uses albuterol rescue inhaler several times a day. On Chronic azithro daily Denies ED visits or hospitalizations related to COPD Follows closely with Cardiology, Dr. Castro. Had RHC, 20% blockage. He is on diuretics to controlfluid volume status. Still has lower extremity edema. He states no changes from Cardiology standpoint. History: I have reviewed records from [facility] 02/18: He was admitted with acute on chronic respiratory failure r/t COVID-19. He was placed on 6 L via NC (notes state he is typically on 3-4 L at home). He was given Cefepime in ED, albuterol neb treatment. Blood cultures showed no growth after 5 days. Sputum culture showed few streptococcus parasanguinis . Was dx with COVID-10 PNA and Pulmonary was consulted. Troponin was 0.10. Plan: duonebs every 6 hours, start ceftriaxone and azithromycin for CAP, start remdesivir and dexamethasone for COVID-19 PNA. Started on Lovenox and Lasix. Discharged home on a 7 day course of Levaquin per Dr. Laird. PFSH: Reviewed in EMR, Significant Changes Noted Above Review of Systems: Review of Systems Constitutional: Positive for diaphoresis (night sweats). Negative for activity change, appetite change, chills, fatigue, fever and unexpected weight change. HENT: Negative for congestion, postnasal drip, rhinorrhea and sneezing. Eyes: Negative for discharge and redness. Respiratory: Positive for cough and shortness of breath. Negative for chest tightness and wheezing. Cardiovascular: Positive for leg swelling. Negative for chest pain and palpitations. Neurological: Positive for weakness (leg). Psychiatric/Behavioral: Positive for sleep disturbance. Medications: Current Outpatient Medications Medication Sig Dispense Refill albuterol (2.5 MG/3ML) 0.083% nebulizer solution Take 3 mL (2.5 mg) by nebulization every 4 (four) hours if needed for wheezing or shortness of breath. 360 mL 3 aspirin 325 MG tablet Take 1 tablet (325 mg) by mouth daily. azithromycin (Zithromax) 250 MG tablet Take 1 tablet by mouth daily. 30 tablet 11 budesonide (Pulmicort) 0.5 MG/2ML nebulizer solution Take 2 mL (0.5 mg) by nebulization 2 (two) times a day. Rinse mouth with water after use to reduce aftertaste and incidence of candidiasis. Do notswallow. 120 mL 3 Continuous Blood Gluc Sensor (FreeStyle Magdaleno 2 Sensor) [facility] [place] sensor every 14 days Dx E11.9 6each 3 dulaglutide 4.5 MG/0.5ML solution auto-injector Inject 4.5 mg under the skin 1 (one) time per week.6 mL 3 formoterol (Perforomist) 20 MCG/2ML nebulizer solution USE 1 VIAL IN NEBULIZER TWO TIMES A DAY 120 mL 3 furosemide (Lasix) 80 MG tablet Take 1 tablet (80 mg) by mouth 2 (two) times a day. Gvoke HypoPen 1-Pack 1 MG/0.2ML solution auto-injector Inject 1 mg under the skin if needed (extreme hypoglycemia). 0.2 mL 2 Insulin Pen Needle (UltiCare Mini Pen Harmony) 31G X 6 MM mis USE TO INJECT INSULIN 3 TIMES PER DAY 300 each 3 insulin regular (HumuLIN R U-500) 500 UNIT/ML CONCENTRATED injection pen Inject subcutaneous 130 units with breakfast, 120 units with lunch, 45 units with dinner 315 mL 3 levothyroxine (Synthroid, Levoxyl) 150 MCG tablet Take 1 tablet (150 mcg) by mouth 1 (one) time each day. 90 tablet 3 metFORMIN (Glucophage) 1000 MG tablet Take 1 tablet (1,000 mg) by mouth 2 (two) times a day with meals. 180 tablet 3 oxygen (O2) gas Inhale continuously. via nasal canula-- wears most of time 2-3 liters revefenacin (Yupelri) 175 MCG/3ML nebulizer solution Take 3 mL (175 mcg) by nebulization 1 (one) time each day. 90 mL 4 spironolactone (Aldactone) 100 MG tablet Take 1 tablet (100 mg) by mouth daily. Ventolin HFA 108 (90 Base) MCG/ACT inhaler INHALE 2 PUFFS EVERY 4 (FOUR) HOURS IF NEEDED FOR WHEEZING OR SHORTNESS OF BREATH. 18 each 11 acetaminophen (Tylenol) 500 MG tablet Take 2 tablets (1,000 mg total) by mouth every 6 (six) hours if needed for pain. (Patient not taking: Reported on 09/28/2024) 50 tablet 0 benzonatate (Tessalon) 200 MG capsule Take 1 capsule (200 mg) by mouth 3 (three) times a day as needed. (Patient not taking: Reported on 09/28/2024) clobetasol (Temovate) 0.05 % cream (Patient not taking: Reported on 09/28/2024) diclofenac (Voltaren) 1 % topical gel (Patient not taking: Reported on 09/28/2024) fluticasone (Cutivate) 0.05 % cream Apply 1 application. topically 2 (two) times a day. (Patient not taking: Reported on 09/28/2024) losartan (Cozaar) 25 MG tablet Take 1 tablet (25 mg) by mouth daily. (Patient not taking: Reported on 09/28/2024) 30 tablet 5 NON FORMULARY Take 2 each by mouth 1 (one) time each day. Equate Prostate 250mg No current facility-administered medications for this visit. Immunizations: Immunization History Administered Date(s) Administered Influenza, Unspecified 03/29/2017 Influenza, high-dose, quadrivalent 04/09/2017, 04/15/2018, 04/07/2019, 03/31/2020, 03/21/2021, 03/20/2022 Moderna COVID-19 Vaccine (Gear Inspector) 12+ years 08/10/2020, 09/07/2020, 03/15/2021 Pfizer-BioNTech COVID-19 Vaccine (Sommer Cap) 12+ years (kirti-sucrose) 11/28/2021 Pneumococcal 20-gonzales Conj Vaccine 07/06/2022 Pneumococcal Polysaccharide PPV23 08/06/2017 Rsv, Bivalent, Protein Subunit Rsvpref, Diluent Reconstituted, 0.5mL, PF 01/15/2024 Tdap 03/13/2019 Physical Examination: Vital Signs: Blood pressure 136/63, pulse 71, temperature 36.8 ??C (98.2 ??F), height 1.829 m (6'),weight 132 kg (291 lb 14.2 oz), SpO2 (!) 89%. Physical Exam Constitutional: General: He is not in acute distress. Appearance: Normal appearance. He is obese. He is not ill-appearing. HENT: Head: Normocephalic. Nose: Nose normal. Mouth/Throat: Mouth: Mucous membranes are moist. Cardiovascular: Rate and Rhythm: Normal rate and regular rhythm. Heart sounds: Normal heart sounds. Pulmonary: Effort: Pulmonary effort is normal. No respiratory distress. Breath sounds: No decreased breath sounds, wheezing, rhonchi or rales. Musculoskeletal: General: Normal range of motion. Cervical back: Normal range of motion. No muscular tenderness. Right lower le+ Edema present. Left lower le+ Edema present. Lymphadenopathy: Cervical: No cervical adenopathy. Skin: General: Skin is warm and dry. Neurological: Mental Status: He is alert and oriented to person, place, and time. Psychiatric: Mood and Affect: Mood normal. Behavior: Behavior normal. Judgment: Judgment normal. Review of Data: Laboratory Studies: I personally reviewed recent lab work in EMR. CBC showed mild anemia with a Hgb of 12.5; platelets elevated at 446, otherwise unremarkable. Rechecked CRP, which has significantly decreased, was 154.2, now is 21.7. Radiology Results: I have personally reviewed the images in EMR. CXR, 2 view: 02/01/21 Interstitial coarsening with streaky basal airspace opacities- may be hypoventilatory however pneumonitis should be clinically excluded. No lobar consolidation. No pleural effusion or pneumothorax. No cardiomegaly. CT chest: CT chest PE protocol 02/03/21: Emphysema. No evidence of pulmonary embolus. Bibasilar atelectatic changes. Faint GGO noted in lingula, nonspecific and associated with mild atelectatic change. Enlarged thyroid gland with narrowing of the trachea. CT chest done on 01/09/22 at [facility] showed: minimal chronic scarring at lung bases. Narrowing of the trachea secondary to enlarging goiter. Fatty liver CT chest 12/2023: Mild emphysema, mild scarring. Lung RADS 1. Pulmonary Function Testin08/2022: Spirometry: Moderate obstruction is present Lung Volumes: Increased RV and RV/TLC %, consistent with air trapping. No restriction. Diffusion Capacity: Diffusion capacity is moderately reduced and does not correct for alveolar volume and hgb Conclusion Moderate obstruction, with evidence of air trapping. Moderately reduced DLCO. Clinically correlate. 6MW: The patient's resting saturation was 95% while breathing room air. The patient walked 190 meters which is 40% of predicted. The patient's tanvir saturation was 88%. No supplemental oxygen was requiredto complete the test. Patient was able to complete test without stopping 07/21/2020 FVC: 2.92 L 65% FEV1: 1.64 L 49% FEV1/FVC: 56% Impression: Moderate airway obstruction w/o significant response to BD. Multi Ox at last visit: At room air at rest, O2 sat 92% and HR 86 BPM. On RA with ambulation, O2 sat 87%, HR 106 bpm. With ambulation with 2 LPM, O2 sat 89%, HR 106 bpm. With ambulation on 3 LPM, O2 sat 95%, HR 88. 09/28/24: Oxygen Saturation Test Pulse Oximetry at rest: Resting SpO2 (minimum): 93 % Resting HR (max): 82 Resting Oxygen Device: None Pulse Oximetry during ambulation: Ambulation SpO2 (minimum): 89 % Ambulation HR (max): 76 Ambulation Oxygen Device: None How often do you cough?: 3 Do you have phelgm (mucus) in your chest?: 2 Do you have tightness in your chest?: 2 Do you feel breathless walking up a hill or stairs?: 5 Very breathless Are you limited to doing activities at home?: 4 Are you confident in leaving home despite your lung condition?: 0 Confident leaving home How are your energy levels?: 5 No energy at all Score: 22 Impression: 1. Dyspnea on exertion 2. Chronic obstructive pulmonary disease, unspecified COPD type (CMS/HCC) 3. Moderate COPD (chronic obstructive pulmonary disease) (CMS/HCC) 4. Centrilobular emphysema (CMS/HCC) 5. Diastolic dysfunction 6. History of COVID-19 7. Physical deconditioning 8. Class 3 severe obesity with body mass index (BMI) of 40.0 to 44.9 in adult, unspecified obesity type, unspecified whether serious comorbidity present (CMS/HCC) 9. Chronic respiratory failure with hypoxia (CMS/HCC) 10. Coronary artery disease involving ivanof bay heart, unspecified vessel or lesion type, unspecified whether angina present Orders Placed This Encounter Procedures CT Chest wo IV Contrast Standing Status: Future Expected Date: 01/05/2025 Expiration Date: 03/31/2026 Specific protocol needed?: Radiology to determine What is the patient's sedation requirement?: No Sedation Results Release Delay - 72 Hours: 72 Hours Follow Up Pulm Standing Status: Future Expected Date: 03/30/2025 Expiration Date: 10/28/2025 Referral Priority: Routine Referral Type: Consultation Number of Visits Requested: 1 Multiple Determination Oximetry Standing Status: Future Expected Date: 09/28/2024 Expiration Date: 03/30/2026 Where will this be performed?: PFT Lab Discussion/Summary: Mr. Massey is a very pleasant 73 year old male, here for routine follow up of COPD. His PMHx includes allergic rhinitis, GERD, HTN, DMT2, BPH, obesity, CAD, diastolic dysfunction Gradually worsening dyspnea on exertion however I feel this is also attributed to untreated sleep apnea, diastolic dysfunction, fluid retention, obesity, physical deconditioning, etc. Did teaching, again, regarding untreated sleep apnea and how I feel NIPPV would improve his overallfunctional status, however he has tried and was just unable to tolerate. Grade/stage/ATS: moderate mMRC/CAT: 31 Pulm rehab: encouraged to restart Tobacco use: quit in 2002 PFTs: Moderate obstruction, with evidence of air trapping. Moderately reduced DLCO. CT chest: mild emphysema, minimal chronic scarring at lung bases. Lung RADS 1, due December 2024 and order placed today ([facility]) Inhalers: triple inhaler therapy nebulized Orals: chronic azithromycin daily LTOT: 3 L at night and PRN. Multi ox performed in clinic today however he did not have oxygen desaturation. Immunizations: Covid: UTD Flu: UTD PCV20: UTD RSV: UTD -Had URI, treated per PCP since last visit, improved -Continue ICS/LABA/LAMA via NEB BID, albuterol PRN -Continue chronic azithro daily -PFTs: Moderate obstruction, with evidence of air trapping. Moderately reduced DLCO -Continue 3 L oxygen at night when he sleep and PRN. -Follows closely with Cardiology, Dr. Castro. Last RHC showed 20% blockage. Continue diuretics (lasix 80 mg and spironolactone). I feel his diastolic dysfunction is likely contributing to dyspnea. He has risk factors of АНДРЕЙ (obesity, wide neck circumference, etc), however he cannot tolerate wearing CPAP, despite going over cardiovascular risks, stroke, increase MVA, etc. -Prevnar 20 UTD, as well as flu, RSV, and covid vaccines FU 6 mo, or sooner if needed. The patient was agreeable to the above plan, and all questions were answered accordingly. I personally spent a total of 30 minutes on this encounter. This time includes face to face with patient, counseling and discussion and/or coordination of care. Counseling and/or coordinating care dominated (more than 50%) the encounter. Signed: Jordan Silva APRN [facility] Pulmonary [facility] Phone number: [phone] Fax number: [phone] documented in this encounter Plan of Treatment Upcoming Encounters Date Type Department Care Team (Late st Contact Info) Description 04/26/2025 2:40 PM EDT Office Visit [facility] Endocrinology [address] [place] [address] Renetta Mendoza APRN [address] [facility] [address] [place] [address] 05/04/2025 10:10 AM EST Office Visit [facility] Medicine Specialties [address] [place] [address] Jordan Silva APRN [address] [place] [address] Scheduled Orders Name Type Priority Associated Diagnoses Orde r Schedule Multiple Determination Oximetry PFT Routine Chronic obstructive pulmonary disease, unspecified COPD type (CMS/HCC) Expected: 09/28/2024, Expires: 03/30/2026 Scheduled Referrals Name Type Priority Associated Diagnoses Orde r Schedule Follow Up Pulm Outpatient Referral Routine Dyspnea on exertion Moderate COPD (chronic obstructive pulmonary disease) (CMS/HCC) Expected: 03/30/2025, Expires: 10/28/2025 documented as of this encounter Visit Diagnoses Diagnosis Dyspnea on exertion- Primary Other dyspnea and respiratory abnormality Chronic obstructive pulmonary disease, unspecified COPD type (CMS/HCC) Moderate COPD (chronic obstructive pulmonary disease) (CMS/HCC) Centrilobular emphysema Diastolic dysfunction Unspecified heart disease History of COVID-19 Physical deconditioning Muscular wasting and disuse atrophy, not elsewhere classified Class 3 severe obesity with body mass index (BMI) of 40.0 to 44.9 in adult, unspecified obesity type, unspecified whether serious comorbidity present Chronic respiratory failure with hypoxia Coronary artery disease involving ivanof bay heart, unspecified vessel or lesion type, unspecified whether angina present documented in this encounter Additional Health Concerns Assessment Noted Time PHQ-9 Depression Total Score: 0 09/29/19 25 2:28 PM EDT A fall risk assessment has been complete d for the patient 09/28/2024 2:29 PM EDT A Body Mass Index follow-up plan has been documented for the patient 09/28/2024 3:24 PM EDT documented as of this encounter Care Teams Technology Lab Teacher Relationship Specialty Start Date End Date Agus Moore MD [address] [facility] [place] [address] PCP - General 11/11/20 documented as of this encounter
--- OUTSIDE RECORDS SUMMARY | 2024-11-10 06:45 | XMS_ITS ---
[facility] [address] [facility] [address] [facility] [address] [place] [id number] Care Team Providers Care Snuff Blender Name Role Phone Betina Moore Primary Care Provider [phone] Addi Prater Unavailable [phone] Allergies No Known Allergies Results Component Value Reference Range Notes CBC Fingerstick (in house) Reviewed date:11/10/2024 03:22:44 PM Interpretation: Performing Lab: Notes/Report: wbc 10.6 3.5 - 10 lym 17.8 15 - 50 mid 4.3 2 - 15 gran 77.9 35 - 80 rbc 5.07 3.5 - 5.5 hgb 13.8 11.5 - 16.5 hct 44.3 35 - 55 mcv 87.5 75 - 100 mch 27.3 25 - 35 mchc 31.2 31 - 38 plat 161 100 - 400 REASON FOR VISIT coughing Medications Medication SIG (Take, Route, Frequency, Duration) Notes Start Date End Date Status Bgxrlpgew-Jtadeiok-BS 30-1-20 MG/5ML 5 mL as needed Orally every 6 hrs; Duration: 10 days 10/13/2024 Active traMADol HCl 50 MG 1 tab(s) Orally q6h prn 025 Active Lisinopril 5 MG 1 tablet Orally Once a day; Duration: 90 days Active Nebulizer/Tubing/Mouthpiece - as directed Active CPAP machine and supplies - 12/14 as directed Active Lisinopril 5 MG 1 tablet Orally Once a day Active metFORMIN HCl 1000 MG 1 tab(s) orally 2 times a day Active Trulicity 4.5 MG/0.5ML as directed Subcu taneous once a week Active Spironolactone 50 MG 1/2 tab(s) orally 1 time a day Active Furosemide 80 MG 1 tab(s) orally once daily Active Levothyroxine Sodium 150 MCG 1 tablet in the morning on an empty stomach Orally Once a day Active Ketoconazole 2 % 1 delmar applied topica lly 2 times a week Active HYDROcodone Bit-Homatrop MBr 5-1.5 MG 1 tab(s) Orally every 6 hrs prn 10/22/2023 Active Clotrimazole-Betamethasone 1-0.05 % APPLY TOPICALLY TO THE AFFECTED AREA TWICE DAILY; Duration: 30 Active Albuterol Sulfate (5 MG/ML) 0.5% 0.5 mL by nebulizer every 6 hours; Duration: 30 day(s) Active Losartan Potassium 25 MG 1 tablet Orally Once a day; Duration: 30 day(s) Active Budesonide 1 MG/2ML 1 mL Inhalation Twic e a day Active Aspirin 325 MG 1 tab(s) orally once a day Active EMBRACE BLOOD GLUCOSE METER 1 METER TEST TWICE A DAY OR DIRECTED 05/03/2017 Active Yupelri 175 MCG/3ML 3 mL Inhalation Once a day Active Promethazine-DM 6.25-15 MG/5ML 5 mL as needed Orally every 6 hrs 11/10/2024 Active Cefdinir 300 MG 1 cap(s) Orally Two times a day; Duration: 7 days 11/10/2024 Active Albuterol Sulfate 108 (90 Base) MCG/ACT 1 puff as needed Inhalation every 4 hrs Active HumuLIN R U-500 (CONCENTRATED) 500 UNIT/ML as directed Subcutaneous Active Methocarbamol 750 MG 1 tablet Orally benoit ry 4 hrs Active dexAMETHasone 4 MG 1 tablet Orally Two times a day; Duration: 5 days 11/10/2024 Active Vital Signs Weight 294 lbs 11/10/2024 Blood pressure systolic 146 mm Hg 11/11/19 25 Blood pressure diastolic 60 mm Hg 025 Heart Rate 91 /min 11/10/2024 Height 71 in 11/10/2024 BMI 41 kg/m2 11/10/2024 Encounters Encounter Location Date Provider Diagnosis [facility] [address] [facility] [address] [place], [place] [id number] 11/10/2024 Addi Prater COPD exacerbation J4 4.1 Assessments Encounter Date Diagnosis (ICD Code) Assessment Notes Treatment Notes Treatment Clinical Notes Section Notes 11/10/2024 COPD exacerbation (ICD-10 - J44.1) Plan Of Treatment Medication Medication Name Sig Start Date Stop Date Notes Promethazine-DM 6.25-15 MG/5ML 5 mL as n eeded Orally every 6 hrs 11/10/2024 Cefdinir 300 MG 1 cap(s) Orally Two times a day; Duration: 7 days 11/10/2024 dexAMETHasone 4 MG 1 tablet Orally Two times a day; Duration: 5 days 11/10/2024 Next Appt Details Follow Up: via phone to repo rt progress, Reason: Provider Name:Betina Casillas et, 06/01/2025 09:00:00 AM, [address], [address] , [place], [place], [id number], Progress Notes * DAVY LIAODOB: [birth year] (75 yo M)Acc No.[id number]:11/10/2024 Progress Notes Patient: DAVY GALLAGHER Provider: Jonny Prater M.D. :1950 A ge:74 Y S ex:Male Date:11/10/2024 Address:[address] [place], [place] [address], [place] Pcp:Betina Moore Subjective: * Chief Complaints: * 1 . Coughing. * HPI: E NT/respiratory: 74 year old male presents with c/o cough P t presents today with c/o cough. Pt has been diangosed w/ COPD but he sts that he feels like he has congestion in his chest. Pt has had persistent cough for some time now. * ROS: D ERMATOLOGY: no R sabina. n o H delta. G ASTROENTEROLOGY: no N ausea. n o V omiting. U ROLOGY: no D ifficulty urinating. n o B lood in urine. * Medical History: C OPD, HBP, BPH, Rosacea, Type 2 diabetes, Diabetic neuropathy, АНДРЕЙ - Dr. Hurst - unsuccessful trial of CPAP, COVID 19 02/01/2021, Large goiter, Cataracts. * Surgical History: t onsillectomy , hernia repair , arthroscopy right knee for torn meniscus , rt total knee relpacement 05/2015, Left heart cath/ Gloria/ no intervention 04/13/2021, Total thyroidectomy for large goiter - 08/2022, Bilateral cataracts 2023. * Hospitalization/Major Diagno stic Procedure: [facility] teacher rolled over on patient 03/2019, [facility]- Fell ( covid pos) 01/31-03/2021. * Family History: F ather: 84 yrs, old age. M other: 62 yrs, mi. S iblings: sister diabetes mi. 3 brother(s) , 1 sister(s) . 3 daughter(s) . . * Social History: C URRENT TOBACCO USE S moking Status: Patient does NOT smoke, Former Smoker: No. E xercise: no. Home smoke detector use: yes. Marital Status: . Past smoking status: no, Smoking status: Does not smoke. * Medications: T aking Methocarbamol 750 MG Tablet 1 tablet Orally every 4 hrs , Taking HumuLIN R U-500 (CONCENTRATED) 500 UNIT/ML Solution as directed Subcutaneous , Taking Albuterol Sulfate 108 (90 Base) MCG/ACT Aerosol Powder Breath Activated 1 puff as needed Inhalation every 4 hrs , Taking Budesonide 1 MG/2ML Suspension 1 mL Inhalation Twice a day , Taking Losartan Potassium 25 MG Tablet 1 tablet Orally Once a day , Taking Yupelri 175 MCG/3ML Solution 3 mL Inhalation Once a day , Taking EMBRACE BLOOD GLUCOSE METER 1 METER TEST TWICE A DAY OR DIRECTED , Taking Aspirin 325 MG Tablet 1 tab(s) orally once a day , Taking Albuterol Sulfate (5 MG/ML) 0.5% Nebulization Solution 0.5 mL by nebulizer every 6 hours , Taking Clotrimazole-Betamethasone 1-0.05 % Cream APPLY TOPICALLY TO THE AFFECTED AREA TWICE DAILY , Taking HYDROcodone Bit-Homatrop MBr 5-1.5 MG Tablet 1 tab(s) Orally every 6 hrs prn , Taking Ketoconazole 2 % Shampoo 1 delmar applied topically 2 times a week , Taking Levothyroxine Sodium 150 MCG Tablet 1 tablet in the morning on an empty stomach Orally Once a day , Taking Trulicity 4.5 MG/0.5ML Solution Pen-injector as directed Subcutaneous once a week , Taking metFORMIN HCl 1000 MG Tablet 1 tab(s) orally 2 times a day , Taking Lisinopril 5 MG Tablet 1 tablet Orally Once a day , Taking Furosemide 80 MG Tablet 1 tab(s) orally once daily , Taking Spironolactone 50 MG Tablet 1/2 tab(s) orally 1 time a day , Taking CPAP machine and supplies - - 12/14 as directed , Taking Nebulizer/Tubing/Mouthpiece - Kit as directed , Taking Lisinopril 5 MG Tablet 1 tablet Orally Once a day , Taking traMADol HCl 50 MG Tablet 1 tab(s) Orally q6h prn , Taking Vzhalxglc-Gxuqzbzv-OF 30-1-20 MG/5ML Liquid 5 mL as needed Orally every 6 hrs , Medication List reviewed and reconciled with the patient * Allergies: N .K.D.A. Objective: * Vitals: W t: 294, Temp: 98.1, BP: 146/60, HR: 91, O2 Sat: 95% on RA, Nurse: CHALINO, Ht: 71, BMI:41. * Examination: E NT/Respiratory: General Appearance: N AD, using a walker to assist with ambulation. H eart : R RR, normal S1 S2. L ungs: b ilateral coarse expiratory wheezes , coarse breath sounds due to upper airway congestion. Assessment: * Assessment: 1. C OPD exacerbation - J44.1 (Primary) Plan: * Treatment: Value Reference Range w bc 10.6 3.5 - 10 * l ym 17.8 15 - 50 * m id 4.3 2 - 15 * g ran 77.9 35 - 80 * r bc 5.07 3.5 - 5.5 * h gb 13.8 11.5 - 16.5 * h ct 44.3 35 - 55 * m cv 87.5 75 - 100 * m ch 27.3 25 - 35 * m chc 31.2 31 - 38 * p lat 161 100 - 400 * Beverley Zamarripa 11/10/2024 11: 25:32 AM > results reviewed w/ pt in office * Procedure Codes: G 2211 Complex e/[place], [address] CAPILLARY BLOOD DRAW, 60136 CBC WITH AUTO DIFF * Follow Up: v ia phone to report progress * Images: Billing Information: * Visit Code: 84384 Office Visit, Est Pt., Level 3. * Procedure Codes: G2211 Complex e/[place]. [id number] CAPILLARY BLOOD DRAW. [id number] CBC WITH AUTO DIFF. * Electronic signature of Rebecca Prater MD on 03/26/2025 at 01:00 PM EDT Sign off status: Pending * Provider: Jonny Prater M.D. Date: 0 11/10/2024 Generated for Gloria harrison/Vinnie/eTransmitting on: 0 03/26/2025 01:00 PM EDT History and Physical Notes * HPI (History of Present Illness) Category Sub-Category Detail Notes Category Not es ENT/respiratory cough Pt presents toda y with c/o cough. Pt has been diangosed w/ COPD but he sts that he feels like he has congestion in his chest. Pt has had persistent cough for some time now Examination Category Sub-Category Detail Notes Category Not es ENT/Respiratory Heart : RRR, normal S1 S2 Lungs: bilateral coarse exp iratory wheezes , coarse breath sounds due to upper airway congestion General Appearance: NAD, using a walker to assist with ambulation
--- OUTSIDE RECORDS SUMMARY | 2024-11-19 05:45 | XMS_ITS ---
Author Organization [facility] Address [facility] [address] [place] [id number] Care Team Providers Care Lime Supervisor Name Role Phone Betina Moore Primary Care Provider [phone] Allergies No Known Allergies Results Component Value Reference Range Notes Glycohemoglobin A1c (in hous e) Reviewed date:11/26/2024 09:20:20 PM Interpretation:8.0 Performing Lab: Notes/Report: 8.0 glycohemoglobin 8.0% 5 - 6.5 % P-T4 Free (thyroxine) Reviewed date:11/26/2024 09:20:20 PM Interpretation:Normal Performing Lab: Notes/Report: Test performed by [employer] [address] [place] [address] , [facility] C, [place] [address] Roman Gonzalez MD, Crankshaft Balancer CLIA: [id number] Thyroxine Free (free T4) 1.19 0.86-1.76 ng/dL P-TSH Reviewed date:11/26/2024 09:20:20 PM Interpretation:Normal Performing Lab: Notes/Report: Test performed by [employer] [address] [place] [address] , [address], [place] [address] Roman Gonzalez MD, Crankshaft Balancer CLIA: [id number] TSH 1.90 0.43-5.25 mU/L REASON FOR VISIT Checkup, Needs labs Medications Medication SIG (Take, Route, Frequency, Duration) Notes Start Date End Date Status traMADol HCl 50 MG 1 tab(s) Orally q6h prn 025 Active dexAMETHasone 4 MG 1 tablet Orally Two times a day; Duration: 5 days 11/10/2024 Not-Taking Hudrhijbk-Syagiqly-KA 30-1-20 MG/5ML 5 mL as needed Orally every 6 hrs; Duration: 10 days 10/13/2024 Not-Taking Promethazine-DM 6.25-15 MG/5ML 5 mL as needed Orally every 6 hrs 11/10/2024 Not-Taking Cefdinir 300 MG 1 cap(s) Orally Two times a day; Duration: 7 days 11/10/2024 Not-Taking Furosemide 80 MG 1 tab(s) orally once daily Active CPAP machine and supplies - 12/14 as directed Active Spironolactone 50 MG 1/2 tab(s) orally 1 time a day Active Lisinopril 5 MG 1 tablet Orally Once a day; Duration: 90 days Active Nebulizer/Tubing/Mouthpie ce - as directed Active Levothyroxine Sodium 150 MCG 1 tablet in the morning on an empty stomach Orally Once a day Active Ketoconazole 2 % 1 delmar applied topica lly 2 times a week Active metFORMIN HCl 1000 MG 1 tab(s) orally 2 times a day Active Trulicity 4.5 MG/0.5ML as directed Subcutaneous once a week Active Lisinopril 5 MG 1 tablet Orally Once a day Active HYDROcodone Bit-Homatrop MBr 5-1.5 MG 1 tab(s) Orally every 6 hrs prn 10/22/2023 Active Aspirin 325 MG 1 tab(s) orally once a day Active EMBRACE BLOOD GLUCOSE METER 1 METER TEST TWICE A DAY OR DIRECTED 05/03/2017 Active Clotrimazole-Betamethason e 1-0.05 % APPLY TOPICALLY TO THE AFFECTED AREA TWICE DAILY; Duration: 30 Active Albuterol Sulfate (5 MG/ML) 0.5% 0.5 mL by nebulizer every 6 hours; Duration: 30 day(s) Active HumuLIN R U-500 (CONCENTRATED) 500 UNIT/ML as directed Subcutaneous Active Budesonide 1 MG/2ML 1 mL Inhalation Twic e a day Active Albuterol Sulfate 108 (90 Base) MCG/ACT 1 puff as needed Inhalation every 4 hrs Active Yupelri 175 MCG/3ML 3 mL Inhalation Once a day Active Losartan Potassium 25 MG 1 tablet Orally Once a day; Duration: 30 day(s) Active Methocarbamol 750 MG 1 tablet Orally benoit ry 4 hrs Active Vital Signs Weight 294 lbs 11/19/2024 Blood pressure systolic 124 mm Hg 11/20/19 25 Blood pressure diastolic 60 mm Hg 025 Heart Rate 60 /min 11/19/2024 Height 71 in 11/19/2024 BMI 41 kg/m2 11/19/2024 Encounters Encounter Location Date Provider Diagnosis [facility] [address] [place] [address] [address] [place] [id number] 11/19/2024 Betina Moore Type 2 diabetes sabiha itus with diabetic polyneuropathy E11.42 ; Thyroid goiter E04.9 ; Postoperative hypothyroidism E89.0 ; HTN (hypertension) I10 ; Chronic obstructive pulmonary disease, unspecified J44.9 and Osteoarthritis M19.90 Assessments Encounter Date Diagnosis (ICD Code) Assessment Notes Treatment Notes Treatment Clinical Notes Section Notes 11/19/2024 Type 2 diabetes mellitus with diabetic polyneuropathy (ICD-10 - E11.42) 11/19/2024 Thyroid goiter (ICD-10 - E04.9) 11/19/2024 Postoperative hypothyroidism (ICD-10 - E89.0) 11/19/2024 HTN (hypertension) (ICD-10 - I10) 11/19/2024 Chronic obstructive pulmonary disease, unspecified (ICD-10 - J44.9) 11/19/2024 Osteoarthritis (ICD-10 - M19.90) Plan Of Treatment Next Appt Details Follow Up: 6 Months, Reason: Provider Name:Betina Junior, 06/01/2025 09:00:00 AM, [address], [address], [place], [phone], Progress Notes * DAVY LIAODOB: 8 (75 yo M)Acc No.[id number]:11/19/2024 Extended Visit Patient: Doyle DAVY URENA Provider: Betina Moore M.D. :1950 A ge:74 Y S ex:Male Date:11/19/2024 Address:[address] [place], [place] [id number] Subjective: * Chief Complaints: * 1 . Checkup. 2. Needs labs. * HPI: H PI: 74 year old male presents with c/o Patient is here today for?Pt is here today for a check up. Pt sts he needs fasting labs done. * ROS: D ERMATOLOGY: no R sabnia. n o H delta. G ASTROENTEROLOGY: no [...] 2023. 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 * [...] Tablet 1 tab(s) Orally q6h prn , Not-Taking Hwyruabou-Ycrnwinc-XH 30-1-20 MG/5ML Liquid 5 mL as needed Orally every 6 hrs , Not-Taking dexAMETHasone 4 MG Tablet 1 tablet Orally Two times a day , Not-Taking Cefdinir 300 MG Capsule 1 cap(s) Orally Two times a day , Not-Taking Promethazine-DM 6.25-15 MG/5ML Syrup 5 mL as needed Orally every 6 hrs , Medication List reviewed and reconciled with the patient * Allergies: N .K.D.A. Objective: * Vitals: W t: 294, Temp: 97.9, BP: 124/60, HR: 60, O2 Sat: 96% on RA, Nurse: antwon, Ht: 71, BMI:41. * Examination: G eneral Examination: General Appearance: N AD. H EENT: Sclera and conjunctiva clear, PERRLA, TM's normal, translucent. O ral cavity: D entures. Mucous membranes moist. N jt: S tocky, supple, no adenopathy or bruits. H eart: R SR. Lungs: G enerally diminished breath sounds but otherwise clear. A bdomen: obese, soft, not distended, nontender. E xtremities: n o leg edema. Assessment: * Assessment: 1. T ype 2 diabetes mellitus with diabetic polyneuropathy - E11.42 (Primary) 2 . T hyroid goiter - E04.9 3 . P ostoperative hypothyroidism - E89.0 ? 4 . H TN (hypertension) - I10 5 . C hronic obstructive pulmonary disease, unspecified - J44.9 6 . O steoarthritis - M19.90 Plan: * Treatment: Value Reference Range g lycohemoglobin 8.0% 5 - 6.5 % * Kinsey Lutz 11/19/2024 11:1 1:25 AM > Betina Moore 11/26/2024 9:20:09 PM >See phone encounter 2.?Thyroid goiter?LAB: P-T4 Free (thyroxine) (Collection Date & Time - 11/19/2024 09:21 AM)? Normal* Value Reference Range T hyroxine Free (free T4) 1.19 0.86-1.76 - ng/d L * Betina Moore 11/26/2024 9 :20:09 PM >See phone encounter ?LAB: P-TSH (Collection Date & Time - 11/19/2024 09:21 AM)?Normal* Value Reference Range T SH 1.90 0.43-5.25 - mU/L * Betina Moore 11/26/2024 9 :20:09 PM >See phone encounter * Procedure Codes: G 2211 Complex e/[place], [address] GLYCATED HEMOGLOBIN TEST, Modifiers: QW , G8752 MOST RECENT SYSTOLIC BP < 140MM HG, G8754 MOST RECENT DIASTOLIC BP < 90MM HG, 3052F HG A1C>EQUAL 8.0%<EQUAL 9.0% * Follow Up: 6 Months * Images: Billing Information: * Visit Code: 57567 Office Visit, Est Pt., Level 4. * Procedure Codes: G2211 Complex e/[place]. [address] GLYCATED HEMOGLOBIN TEST. Modifiers: QW G8752 MOST RECENT SYSTOLIC BP < 140MM HG. G8754 MOST RECENT DIASTOLIC BP < 90MM HG. 3052F HG A1C>EQUAL 8.0%<EQUAL 9.0%. * Electronic signature of Betina Moore MD on 03/26/2025 at 01:00 PM EDT Sign off status: Pending * Provider: Betina Moore M.D. Date: 0 11/19/2024 Generated for Gloria harrison/Vinnie/Nurisitting on: 0 03/26/2025 01:00 PM EDT History and Physical Notes * HPI (History of Present Illness) Category Sub-Category Detail Notes Category Not es HPI Patient is here today for Pt is here today for a check up. Pt sts he needs fasting labs done Examination Category Sub-Category Detail Notes Category Not es General Examination HEENT: Sclera and c onjunctiva clear, PERRLA, TM's normal, translucent Heart: RSR Lungs: Generally diminished breath sounds but otherwise clear Abdomen: obese, soft, not dis tended, nontender Extremities: no leg edema General Appearance: NAD Skin: Neck: Stocky, supple, no a denopathy or bruits Oral cavity: Dentures. Mucous mem branes moist
--- OUTSIDE RECORDS SUMMARY | 2024-12-10 06:45 | XMS_ITS ---
Author Organization [facility] Address [address] [facility] [address] [place] [id number] Care Team Providers Care Electronic Equipment Repairer Name Role Phone Betina Moore Primary Care Provider Allergies No Known Allergies REASON FOR VISIT coughing, needs colonoscopy - declined in 2019 and 2021 Medications Medication SIG (Take, Route, Frequency, Duration) Notes Start Date End Date Status traMADol HCl 50 MG 1 tab(s) Orally q6h prn 025 Active Dqtjdiqrs-Hqjanwsd-NJ 30-1-20 MG/5ML 5 mL as needed Orally every 6 hrs; Duration: 10 days 10/13/2024 Not-Taking Nebulizer/Tubing/Mouthpie ce - as directed Active Lisinopril 5 MG 1 tablet Orally Once a day; Duration: 90 days Active CPAP machine and supplies - 12/14 as directed Active Promethazine-DM 6.25-15 MG/5ML 5 mL as needed Orally every 6 hrs Active metFORMIN HCl 1000 MG 1 tab(s) orally 2 times a day Active Lisinopril 5 MG 1 tablet Orally Once a day Active Furosemide 80 MG 1 tab(s) orally once daily Active Spironolactone 50 MG 1/2 tab(s) orally 1 time a day Active Ketoconazole 2 % 1 delmar applied topica lly 2 times a week Active dexAMETHasone 4 MG 1 tablet Orally Two times a day; Duration: 5 days Active Cefdinir 300 MG 1 cap(s) Orally Two times a day; Duration: 7 days Active Levothyroxine Sodium 150 MCG 1 tablet in the morning on an empty stomach Orally Once a day Active Trulicity 4.5 MG/0.5ML as directed Subcutaneous once a week Active HYDROcodone Bit-Homatrop MBr 5-1.5 MG 1 tab(s) Orally every 6 hrs prn 10/22/2023 Active Albuterol Sulfate (5 MG/ML) 0.5% 0.5 mL by nebulizer every 6 hours; Duration: 30 day(s) Active Clotrimazole-Betamethason e 1-0.05 % APPLY TOPICALLY TO THE AFFECTED AREA TWICE DAILY; Duration: 30 Active EMBRACE BLOOD GLUCOSE METER 1 METER TEST TWICE A DAY OR DIRECTED 05/03/2017 Active Aspirin 325 MG 1 tab(s) orally once a day Active Budesonide 1 MG/2ML 1 mL Inhalation Twic e a day Active Losartan Potassium 25 MG 1 tablet Orally Once a day; Duration: 30 day(s) Active HumuLIN R U-500 (CONCENTRATED) 500 UNIT/ML as directed Subcutaneous Active Albuterol Sulfate 108 (90 Base) MCG/ACT 1 puff as needed Inhalation every 4 hrs Active Yupelri 175 MCG/3ML 3 mL Inhalation Once a day Active Methocarbamol 750 MG 1 tablet Orally benoit ry 4 hrs Active Vital Signs Weight 284.8 lbs 12/10/2024 Blood pressure systolic 122 mm Hg 12/11/19 25 Blood pressure diastolic 60 mm Hg 025 Heart Rate 96 /min 12/10/2024 Height 71 in 12/10/2024 BMI 39.72 kg/m2 12/10/2024 Encounters Encounter Location Date Provider Diagnosis [facility] [address] [place], [place] [id number] 12/10/2024 Betina Moore COPD exacerbation J4 4.1 Assessments Encounter Date Diagnosis (ICD Code) Assessment Notes Treatment Notes Treatment Clinical Notes Section Notes 12/10/2024 COPD exacerbation (ICD-10 - J44.1) Plan Of Treatment Medication Medication Name Sig Start Date Stop Date Notes Promethazine-DM 6.25-15 MG/5ML 5 mL as n eeded Orally every 6 hrs dexAMETHasone 4 MG 1 tablet Orally Two times a day; Duration: 5 days Cefdinir 300 MG 1 cap(s) Orally Two times a day; Duration: 7 days Next Appt Details Follow Up: prn, Reason: Provider Name:Betina Junior, 06/01/2025 09:00:00 AM, 1210 [facility] 36 [facility], [address], [place], [id number], Medications Administered Medication Instructions Date of Administration Dosage Notes Dexamethasone 12/10/2024 1 mL Progress Notes * DAVY LIAODOB: 8 (75 yo M)Acc No.[id number]:12/10/2024 Progress Notes Patient: DAVY GALLAGHER Provider: Betina Moore M.D. :1950 A ge:74 Y S ex:Male Date:12/10/2024 Address:[address] [place], [place] [id number] Subjective: * Chief Complaints: * 1 . Coughing. 2. Needs colonoscopy - declined in 2019 and 2021. * HPI: E NT/respiratory: 74 year old male presents with c/o cough P t sts his cough and chest congestion started about a week ago. c/o chest congestion. * ROS: D ERMATOLOGY: no R sabina. [...] 2023. 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 * Family [...] 1 tab(s) Orally q6h prn , Not-Taking Xjzcxwbyc-Osrhumar-PU 30-1-20 MG/5ML Liquid 5 mL as needed [...] N .K.D.A. Objective: * Vitals: W t: 284.8, Temp: 98.3, BP: 122/60, HR: 96, O2 Sat: 89% on RA, Nurse: raoul, Ht: 71, BMI:39.72. * Examination: E NT/Respiratory: General Appearance: N AD. N ose : m ild congestion.?Heart : R RR, normal S1 S2, no murmurs. L ungs: G enerally diminished breath sounds. Few faint wheezes in the left midlung. Assessment: * Assessment: 1. C OPD exacerbation - J44.1 (Primary) Plan: * Treatment: * Therapeutic Injections: Dexamethasone : 1 mL (Route: Intramuscular) given by RAOUL Sanders on right gluteus (COPD exacerbation) * Procedure Codes: G 2211 Complex e/m visit add on, J1100 Dexamethasone, 63616 ADMINISTRATION OF INJECTION, 1036F TOBACCO NON-USER, G8783 BP SCR PRFRM RCMDD DEFIND SCR INTVL, G8752 MOST RECENT SYSTOLIC BP < 140MM HG, G8754 MOST RECENT DIASTOLIC BP < 90MM HG * Follow Up: p rn * Images: Billing Information: * Visit Code: 57350 Office Visit, Est Pt., Level 3. Modifiers: 25 * Procedure Codes: G2211 Complex e/m visit add on. J1100 Dexamethasone. 08330 ADMINISTRATION OF INJECTION. 1036F TOBACCO NON-USER. G8783 BP SCR PRFRM RCMDD DEFIND SCR INTVL. G8752 MOST RECENT SYSTOLIC BP < 140MM HG. G8754 MOST RECENT DIASTOLIC BP < 90MM HG. * Electronic signature of Betina Moore MD on 03/26/2025 at 01:00 PM EDT Sign off status: Pending * Provider: Betina Moore M.D. Date: 0 12/10/2024 Generated for Gloria harrison/Vinnie/Gretchensmitting on: 0 03/26/2025 01:00 PM EDT History and Physical Notes * HPI (History of Present Illness) Category Sub-Category Detail Notes Category Not es ENT/respiratory cough Pt sts his cough and chest congestion started about a week ago chest congestion Examination Category Sub-Category Detail Notes Category Not es ENT/Respiratory Heart : RRR, normal S1 S2, no mur murs Lungs: Generally diminished breath sounds. Few faint wheezes in the left midlung General Appearance: NAD Nose : mild congestion
--- OUTSIDE RECORDS SUMMARY | 2025-02-04 05:45 | XMS_ITS ---
Author Organization [facility] Address [address] [facility] [address] [place] [id number] Care Team Providers Care Manager Underwriting Name Role Phone Betina Moore Primary Care Provider [phone] Allergies No Known Allergies Results Component Value Reference Range Notes CBC Venipuncture (in house) Reviewed date:02/11/2025 08:45:33 AM Interpretation: Performing Lab: Notes/Report: wbc 10.9 3.5 - 10 lymph 14.2 15 - 50 mid 3.7 2 - 15 gran 82.1 35 - 80 rbc 5.14 3.5 - 5.5 hgb 14.5 11.5 - 16.5 hct 45.2 35 - 55 mcv 88.0 75 - 100 mch 28.2 25 - 35 mchc 32.1 31 - 38 platlet 216 100 - 400 Glycohemoglobin A1c (in hous e) Reviewed date:02/11/2025 08:45:33 AM Interpretation:8.4% Performing Lab: Notes/Report: 8.4% glycohemoglobin 8.4% 5 - 6.5 % P-Comprehensive Metabolic Pa vinicio (CMP) Reviewed date:02/11/2025 08:45:33 AM Interpretation:gluc 243, Ca 8.4 Performing Lab: Notes/Report: Test performed by [facility] [address] [place] [address] , [address], [place] [address] Roman Gonzalez MD, Culturist CLIA: [id number] Sodium 139 135-145 mmol/L Potassium 5.0 3.5-5.3 mmol/L Chloride 101 97-108 mmol/L CO2 25 20-32 mmol/L Glucose 243 65-99 mg/dL BUN 14 8-23 mg/dL Creatinine 0.89 0.70-1.30 mg/dL Calcium 8.4 8.6-10.4 mg/dL eGFR by Creatinine 88 >59 mL/min/1.73m2 Protein 6.4 6.0-8.3 g/dL Albumin 3.6 3.5-5.3 g/dL Alkaline Phosphatase 66 40-129 IU/L ALT (SGPT) 17 <5-55 IU/L AST (SGOT) 19 <5-46 IU/L Bilirubin, Total 0.3 <0.2-1.2 mg/dL A/G Ratio 1.3 1.1-2.5 P-Lipid Panel Reviewed date:02/11/2025 08:45:33 AM Interpretation:trigs 168, hdl 39 Performing Lab: Notes/Report: Test performed by [facility] [address] [place] [address] , [address], [place] [address] Roman Gonzalez MD, Culturist CLIA: [id number] Cholesterol 146 <200 mg/dL Triglycerides 168 <150 mg/dL HDL Cholesterol 39 >39 mg/dL Cholesterol / HDL Ratio 3.74 0.00-4.99 Ratio Non-HDL Cholesterol 107 <130 mg/dL LDL Cholesterol (Calculation) 73 <130 mg/dL LDL Cholesterol Levels* Less than 100 mg/dL Optimal 100 to 129 mg/dL Near Optimal/ Above Optimal 130 to 159 mg/dL Borderline High 160 to 189 mg/dL High 190 mg/dL and above Very High * Categories as recommended by the 2004 ATPIII guidelines LDL/HDL Ratio 1.9 <3.3 Ratio LDL Cholesterol Patient History Test Date: 08/15/2023 LDL Results: 81 Units: mg/dL % Change: -8% Test Date: 02/13/2024 LDL Results: 89 Units: mg/dL % Change: +9% Test Date: 02/04/2025 LDL Results: 73 Units: mg/dL % Change: -17% P-TSH Reviewed date:02/11/2025 08:45:33 AM Interpretation:0.33 Performing Lab: Notes/Report: Test performed by [facility] [address] [place] [address] , [facility], [place] [address] Roman Gonzalez MD, Culturist CLIA: [id number] TSH 0.33 0.43-5.25 mU/L REASON FOR VISIT 6 Month Check Up Medications Medication SIG (Take, Route, Frequency, Duration) Notes Start Date End Date Status Amoxicillin-Pot Clavulanate 500-125 MG 1 tablet Orally every 12 hrs 02/04/2025 Active Levothyroxine Sodium 150 MCG TAKE 1 TABLET(150 MCG) BY MOUTH 1 TIME EACH DAY; Duration: 90 Active Promethazine-DM 6.25-15 MG/5ML 5 mL as needed Orally every 6 hrs Not-Taking Ziuqfnjlz-Sjrolema-PU 30-1-20 MG/5ML 5 mL as needed Orally every 6 hrs; Duration: 10 days 10/13/2024 Not-Taking Cefdinir 300 MG 1 cap(s) Orally Two times a day; Duration: 7 days Not-Taking CPAP machine and supplies - 12/14 as directed Active Nebulizer/Tubing/Mouthpie ce - as directed Active Lisinopril 5 MG 1 tablet Orally Once a day; Duration: 90 days Active traMADol HCl 50 MG 1 tab(s) Orally q6h prn 025 Active dexAMETHasone 4 MG 1 tablet Orally Two times a day; Duration: 5 days Not-Taking Trulicity 4.5 MG/0.5ML as directed Subcutaneous once a week Active metFORMIN HCl 1000 MG 1 tab(s) orally 2 times a day Active Lisinopril 5 MG 1 tablet Orally Once a day Active Furosemide 80 MG 1 tab(s) orally once daily Active Spironolactone 50 MG 1/2 tab(s) orally 1 time a day Active Aspirin 325 MG 1 tab(s) orally once a day Active Albuterol Sulfate (5 MG/ML) 0.5% 0.5 mL by nebulizer every 6 hours; Duration: 30 day(s) Active Clotrimazole-Betamethason e 1-0.05 % APPLY TOPICALLY TO THE AFFECTED AREA TWICE DAILY; Duration: 30 Active HYDROcodone Bit-Homatrop MBr 5-1.5 MG 1 tab(s) Orally every 6 hrs prn 10/22/2023 Active Ketoconazole 2 % 1 delmar applied topica lly 2 times a week Active Albuterol Sulfate 108 (90 Base) MCG/ACT 1 puff as needed Inhalation every 4 hrs Active Budesonide 1 MG/2ML 1 mL Inhalation Tw a day Active Losartan Potassium 25 MG 1 tablet Orally Once a day; Duration: 30 day(s) Active Yupelri 175 MCG/3ML 3 mL Inhalation Once a day Active EMBRACE BLOOD GLUCOSE METER 1 METER TEST TWICE A DAY OR DIRECTED 05/03/2017 Active HumuLIN R U-500 (CONCENTRATED) 500 UNIT/ML as directed Subcutaneous Active Methocarbamol 750 MG 1 tablet Orally benoit ry 4 hrs Active Vital Signs Weight 294.6 lbs 02/04/2025 Blood pressure systolic 130 mm Hg 02/05/20 25 Blood pressure diastolic 60 mm Hg 025 Heart Rate 69 /min 02/04/2025 Height 71 in 02/04/2025 BMI 41.08 kg/m2 02/04/2025 Encounters Encounter Location Date Provider Diagnosis [facility] 36 [facility] [address] [place] [id number] 02/04/2025 Betina Moore HTN (hypertension) I 10 ; Acute bronchitis J20.9 ; Type 2 diabetes mellitus with diabetic polyneuropathy E11.42 ; Mixed hyperlipidemia E78.2 ; Chronic obstructive pulmonary disease, unspecified J44.9 ; АНДРЕЙ (obstructive sleep apnea) G47.33 ; Postoperative hypothyroidism E89.0 and Acute and chronic respiratory failure J96.20 Assessments Encounter Date Diagnosis (ICD Code) Assessment Notes Treatment Notes Treatment Clinical Notes Section Notes 02/04/2025 HTN (hypertension) (ICD-10 - I10) 02/04/2025 Acute bronchitis (ICD-10 - J20.9) 02/04/2025 Type 2 diabetes mellitus with diabetic polyneuropathy (ICD-10 - E11.42) 02/04/2025 Mixed hyperlipidemia (ICD-10 - E78.2) 02/04/2025 Chronic obstructive pulmonary disease, unspecified (ICD-10 - J44.9) 02/04/2025 АНДРЕЙ (obstructive sleep apnea) (ICD-10 - G47.33) 02/04/2025 Postoperative hypothyroidism (ICD-10 - E89.0) 02/04/2025 Acute and chronic respiratory failure (ICD-10 - J96.20) Plan Of Treatment Medication Medication Name Sig Start Date Stop Date Notes Amoxicillin-Pot Clavulanate 500-125 MG 1 tablet Orally every 12 hrs 02/04/2025 Next Appt Details Follow Up: 6 Months, Reason: Provider Name:Betina Junior, 06/01/2025 09:00:00 AM, [address] [facility] 36 [facility], [address], [place], [id number], Medications Administered Medication Instructions Date of Administration Dosage Notes Dexamethasone 02/04/2025 1 mL Progress Notes * DAVY LIAODOB: [birth year] (75 yo M)Acc No.[id number]:02/04/2025 Extended Visit Patient: Doyle DAVY URENA Provider: Betina Moore M.D. :1950 A ge:74 Y S ex:Male Date:02/04/2025 Address:[address] [place] [address] [id number] Subjective: * Chief Complaints: * 1 . 6 Month Check Up. * HPI: H PI: 74 year old male presents with c/o Patient is here today for?Pt is here today for a 6 month check up. Pt is fasting. E NT/respiratory: He complains of constant shortness of breath, dyspnea on exertion and productive cough however his cough and chest congestion have been worse over the past week and feels that his respirations are more labored. Denies chest pain or hemoptysis. No fever. Throat feels raw. 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 He is compliant with his nebulizer and uses his albuterol inhaler 4 times a day. * ROS: D ERMATOLOGY: no R sabina. [...] 2023. * Hospitalization/Major Diagno stic Procedure: H MH-black belt rolled over on patient 03/2019, [facility]- Fell ( covid pos) 01/31-03/2021. [...] topically 2 times a week , Taking Trulicity 4.5 MG/0.5ML Solution Pen-injector [...] 1 tab(s) Orally q6h prn , Taking Levothyroxine Sodium 150 MCG Tablet TAKE 1 TABLET(150 MCG) BY MOUTH 1 TIME EACH DAY , Not-Taking dexAMETHasone 4 MG Tablet 1 tablet Orally Two times a day , Not-Taking Cefdinir 300 MG Capsule 1 cap(s) Orally Two times a day , Not-Taking Promethazine-DM 6.25-15 MG/5ML Syrup 5 mL as needed Orally every 6 hrs , Not- Taking Qaeooihhr-Kalucaxg-LC 30-1-20 MG/5ML Liquid 5 mL as needed Orally every 6 hrs , Medication List reviewed and reconciled with the patient * Allergies: N .K.D.A. Objective: * Vitals: W t: 294.6, Temp: 98.6, BP: 130/60, HR: 69, O2 Sat: 88% on RA, Nurse: antwon, Ht: 71, BMI:41.08. * Examination: E NT/Respiratory: General Appearance: N AD. N ose : m ild congestion.?Oral cavity : m ild erythema of throat. L ungs: G enerally diminished breath sounds with faint wheezes bilaterally.. E xtremities : 1 + edema. Assessment: * Assessment: 1. A cute bronchitis - J20.9 (Primary) 2 . H TN (hypertension) - I10 ? 3 . T ype 2 diabetes mellitus with diabetic polyneuropathy - E11.42 4 . M ixed hyperlipidemia - E78.2 5 . C hronic obstructive pulmonary disease, unspecified - J44.9 6 . O SA (obstructive sleep apnea) - G47.33 7 . P ostoperative hypothyroidism - E89.0 8 . A cute and chronic respiratory failure - J96.20 Plan: * Treatment: 2. H TN (hypertension) L AB: P-Comprehensive Metabolic Panel (CMP) (Collection Date & Time - 02/04/2025 09:25 AM) g allison 243, Ca 8.4 Value Reference Range A /G Ratio 1.3 1.1-2.5 - * A lbumin 3.6 3.5-5.3 - g/dL * A lkaline Phosphatase 66 40-129 - IU/L * A LT (SGPT) 17 <5-55 - IU/L * A ST (SGOT) 19 <5-46 - IU/L * B ilirubin, Total 0.3 <0.2-1.2 - mg/dL * B UN 14 8-23 - mg/dL * C alcium 8.4 L 8.6-10.4 - mg/dL * C hloride 101 97-108 - mmol/L * C O2 25 20-32 - mmol/L * C reatinine 0.89 0.70-1.30 - mg/dL * G lucose 243 H 65-99 - mg/dL * P otassium 5.0 3.5-5.3 - mmol/L * S odium 139 135-145 - mmol/L * P rotein 6.4 6.0-8.3 - g/dL * e GFR by Creatinine 88 >59 - mL/min/1.73m2 * Betina Moore 02/11/2025 08:45:23 AM EDT > See phone encounter 3.?Type 2 diabetes mellitus with diabetic polyneuropathy?LAB: CBC Venipuncture (in house) (Collection Date & Time - 02/04/2025)* Value Reference Range w bc 10.9 3.5 - 10 * l ymph 14.2 15 - 50 * m id 3.7 2 - 15 * g ran 82.1 35 - 80 * r bc 5.14 3.5 - 5.5 * h gb 14.5 11.5 - 16.5 * h ct 45.2 35 - 55 * m cv 88.0 75 - 100 * m ch 28.2 25 - 35 * m chc 32.1 31 - 38 * p latlet 216 100 - 400 * Kinsey Lutz 02/04/2025 10:34 :03 AM EDT > Provider reviewed results while patient in office. Betina Moore 02/11/2025 08:45:23 AM EDT > See phone encounter ?LAB: Glycohemoglobin A1c (in house) (Collection Date & Time - 02/04/2025)? 8.4%* Value Reference Range g lycohemoglobin 8.4% 5 - 6.5 % * Kinsey Lutz 02/04/2025 10:36 :54 AM EDT > Betina Moore 02/11/2025 08:45:23 AM EDT > See phone encounter 4.?Mixed hyperlipidemia?LAB: P-Lipid Panel (Collection Date & Time - 02/04/2025 09:25 AM)?trigs 168, hdl 39* Value Reference Range C holesterol / HDL Ratio 3.74 0.00-4.99 - Ratio * C holesterol 146 <200 - mg/dL * H DL Cholesterol 39 L >39 - mg/dL * L DL Cholesterol (Calculation) 73 <130 - mg/d L * L DL/HDL Ratio 1.9 <3.3 - Ratio * N on-HDL Cholesterol 107 <130 - mg/dL * T riglycerides 168 H <150 - mg/dL * Betina Moore 02/11/2025 08:45:23 AM EDT > See phone encounter 5.?Postoperative hypothyroidism?LAB: P-TSH (Collection Date & Time - 02/04/2025 09:25 AM)?0.33* Value Reference Range T SH 0.33 L 0.43-5.25 - mU/L * Betina Moore 02/11/2025 08:45:23 AM EDT > See phone encounter * Therapeutic Injections: Dexamethasone : 1 mL (Route: Intramuscular) given by ANTWON Sanders on right gluteus (Acute bronchitis) * Procedure Codes: G 2211 Complex e/[place], [address] GLYCATED HEMOGLOBIN TEST, Modifiers: QW , 68682 CBC WITH AUTO DIFF, J1100 Dexamethasone, 47922 ADMINISTRATION OF INJECTION, 1036F TOBACCO NON-USER, 3052F HG A1C>EQUAL 8.0%<EQUAL 9.0%, G8950 PREHTN/HTN BP DOC INDCD F/U DOC, G8752 MOST RECENT SYSTOLIC BP < 140MM HG, G8754 MOST RECENT DIASTOLIC BP < 90MM HG * Follow Up: 6 Months * Images: Drawing:[facility] Billing Information: * Visit Code: 02170 Office Visit, Est Pt., Level 4. Modifiers: 25 * Procedure Codes: G2211 Complex e/[place]. [address] GLYCATED HEMOGLOBIN TEST. Modifiers: QW 26337 CBC WITH AUTO DIFF. J1100 Dexamethasone. 45729 ADMINISTRATION OF INJECTION. 1036F TOBACCO NON-USER. 3052F HG A1C>EQUAL 8.0%<EQUAL 9.0%. G8950 PREHTN/HTN BP DOC INDCD F/U DOC. G8752 MOST RECENT SYSTOLIC BP < 140MM HG. G8754 MOST RECENT DIASTOLIC BP < 90MM HG. * Electronic signature of Betina Moore MD on 03/26/2025 at 12:58 PM EDT Sign off status: Pending * Provider: Betina Moore M.D. 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 He is compliant with his nebulizer and uses his albuterol inhaler 4 times a day HPI Patient is here today for Pt is here today for a 6 month check up. Pt is fasting Examination Category Sub-Category Detail Notes Category Not es ENT/Respiratory Oral cavity : mild erythema of throat Lungs: Generally diminished breath sounds with faint wheezes bilaterally. Extremities : 1+ edema General Appearance: NAD Nose : mild congestion
--- OUTSIDE RECORDS SUMMARY | 2025-02-16 14:10 | XMS_ITS | Encounter Summary ---
Author Organization [facility] Address [address] [place] [address] Care Team Providers Care Back Roll Lathe Operator Name Role Phone Agus Moore MD Primary Care Provider [phone]- [phone] Reason for Referral * Consultation (Routine) - Authorized Specialty Diagnoses / Procedures Referred By Contsri t Referred To Contact Diagnoses Moderate COPD (chronic obstructive pulmonary disease) (CMS/HCC) Dyspnea on exertion Diastolic dysfunction Chronic respiratory failure with hypoxia Lisa Drake APRN [address] [address] Phone: tel: fax: Referral ID Status Reason Start Date Expiration Date V isits Requested Visits Authorized [id number] Authorized 02/16/2025 08/18/2026 1 1 Reason for Visit * Reason Comments Follow-up COPD Encounter Details Date Type Department Care Team (Late st Contact Info) Description 02/16/2025 2:10 PM EDT [facility] [address] [place] [address] Lisa Drake APRN [address] [facility] [address] [place] [address] Moderate COPD (chronic obstructive pulmonary disease) (CMS/HCC) (Primary Dx); Dyspnea on exertion; Diastolic dysfunction; Chronic respiratory failure with hypoxia; Centrilobular emphysema (CMS/HCC); Physical deconditioning; Coronary artery disease involving tunica-biloxi heart, unspecified vessel or lesion type, unspecified whether angina present; Class 3 severe obesity with body mass index (BMI) of 40.0 to 44.9 in adult, unspecified obesity type, unspecified whether serious comorbidity present; History of COVID-19 Social History Tobacco Use Types Packs/Day Years [...] Sign Reading Time Taken Comments Blood Pressure 130/77 02/16/2025 1:57 PM EDT Pulse 83 02/16/2025 1:57 PM EDT Temperature 36.8 C (98.2 F) 02/16/2025 1:57 PM EDT Respiratory Rate 24 02/16/2025 1:57 PM EDT Oxygen Saturation 91% 02/16/2025 1:57 PM EDT 1lpm Inhaled Oxygen Concentration - - Weight 134 kg (295 lb 6.7 oz) 02/16/2025 1:57 PM EDT Height 182.9 cm (6') 02/16/2025 1:57 PM EDT Body Mass Index 40.07 02/16/2025 1:57 PM EDT documented in this encounter Functional Status * AUDIT-C Score Answer Date of Assessment Author 0 02/16/2025 2:00 PM EDT Shikha Hooper * Question Answer Date of Assessment Author Q1: How often do you have a drink containing alcohol? Never 02/16/2025 2:00 PM Shikha Cho Q2: How many drinks containing alcohol do you have on a typical day when you are drinking? Patient does not drink 02/16/2025 2:00 PM LETTYT Shikha Bland Q3: How often do you have six or more drinks on one occasion? Never 02/16/2025 2:00 PM Shikha Cho documented as of this encounter Miscellaneous Notes * Progress Notes - Lisa Drake, [employer] - 02/16/2025 2:10 PM EDT PULMONARY FOLLOW-UP OUTPATIENT NOTE: Patient ID/Chief Complaint: .Robert Massey is a 74 y.o. male presenting for follow up of COPD and post COVID syndrome. His PMHx includes allergic rhinitis, GERD, HTN, DMT2, BPH, obesity, CAD, diastolic dysfunction. Chief Complaint Patient presents with Follow-up COPD History of Present Illness: Here for routine follow up of COPD. He states he has had a gradual worsening since his last visit. No acute symptoms. Short of breath with any activity at all. He relies heavily on his albuterol. He states his cough is worse the last couple of weeks. Mostly non productive. He has wheezing daily. He also describes shortness of breath at rest and when lying down. Both legs and hands are still swollen. He is on two diuretics. Denies f/c/ns. Denies unintentional weight loss, he has been gaining weight. Went to Dr. Moore and was given antibiotics and cough syrup, unsure if steroids, a few weeks ago. LDCT was due December 2024- done at [facility] He tried his CPAP one year ago. Not open to trying this again. He feels oxygen helps. Thinking about switching to Inogen. Sleeping with 3 L of oxygen He declines a referral to local pulmonary rehab. He is on lasix 80 mg BID and spironolactone. On Chronic azithro daily. Denies ED visits or hospitalizations related to COPD since last visit. Follows closely with Cardiology, Dr. Castro. Had RHC, 20% blockage. He is on diuretics to controlfluid volume status. Still has lower extremity edema. He states no changes from Cardiology standpoint. History: I have reviewed records from [facility] 02/18: He was admitted with acute on [...] Review of Systems: Review of Systems Constitutional: Negative for activity change, appetite change, chills, diaphoresis, fatigue, fever and unexpected weight change. HENT: Negative for congestion, postnasal drip, rhinorrhea and sneezing. Eyes: Negative for discharge and redness. Respiratory: Positive for cough, shortness of breath and wheezing. Negative for chest tightness. Cardiovascular: Positive for leg swelling. Negative for chest pain and palpitations. Neurological: Positive for weakness (leg). Psychiatric/Behavioral: Positive for sleep disturbance. Medications: Current Outpatient Medications Medication Sig Dispense Refill acetaminophen (Tylenol) 500 MG tablet Take 2 tablets (1,000 mg total) by mouth every 6 (six) hours if needed for pain. 50 tablet 0 albuterol (Proventil) (2.5 MG/3ML) 0.083% nebulizer solution Take 3 mL by nebulization every 4 hours as needed for wheezing or shortness of breath. 360 mL 3 albuterol (Ventolin HFA) 108 (90 Base) MCG/ACT inhaler Inhale 2 puffs every 4 hours as needed for wheezing or shortness of breath. 18 each 11 aspirin 325 MG tablet Take 1 tablet (325 mg) by mouth daily. azithromycin (Zithromax) 250 MG tablet Take 1 tablet by mouth daily. 30 tablet 11 xsfyseifuebszof-axnvscgtktrvhoy-MX 30-2-10 MG/5ML syrup take 5 mls by mouth every 6 hours as neededfor 10 days Oeqivas-Zoyenqewzqq-Npdcqcyvny (Breztri Aerosphere) 160-9-4.8 MCG/ACT aerosol Inhale 2 puffs 2 times a day. USE WITH SPACER. RINSE MOUTH OUT AFTER USE. 10.7 g 11 budesonide (Pulmicort) 0.5 MG/2ML nebulizer solution Take 2 mL by nebulization 2 times a day. [place]in[place] with water after use to reduce aftertaste and incidence of candidiasis. Do not swallow. 120 mL 3 Continuous Blood Gluc Sensor (FreeStyle Magdaleno 2 Sensor) misc Change sensor every 14 days Dx E11.9 6each 3 diclofenac (Voltaren) 1 % topical gel dulaglutide 4.5 MG/0.5ML solution auto-injector Inject 4.5 mg under the skin 1 (one) time per week.6 mL 3 fluticasone (Cutivate) 0.05 % cream Apply 1 application. topically 2 (two) times a day. furosemide (Lasix) 80 MG tablet Take 1 tablet (80 mg) by mouth 2 (two) times a day. Gvoke HypoPen 1-Pack 1 MG/0.2ML solution auto-injector Inject 1 mg under the skin if needed (extreme hypoglycemia). 0.2 mL 2 Insulin Pen Needle (UltiCare Mini Pen [place]) 31G X 6 MM [facility] USE TO INJECT INSULIN 3 TIMES PER DAY 300 each 3 insulin regular (HumuLIN R U-500) 500 UNIT/ML CONCENTRATED injection pen Inject subcutaneous 150 units with breakfast, 130 units with lunch, 70 units with dinner 315 mL 3 levothyroxine (Synthroid, Levoxyl) 137 MCG tablet take 1 tablet by mouth daily in the morning on anempty stomach levothyroxine (Synthroid, Levoxyl) 150 MCG tablet Take 1 tablet (150 mcg) by mouth 1 (one) time each day. 90 tablet 3 losartan (Cozaar) 25 MG tablet Take 1 tablet (25 mg) by mouth daily. 30 tablet 5 metFORMIN (Glucophage) 1000 MG tablet Take 1 tablet (1,000 mg) by mouth 2 (two) times a day with meals. 180 tablet 3 NON FORMULARY Take 2 each by mouth 1 (one) time each day. Equate Prostate 250mg oxygen (O2) gas Inhale continuously. via nasal canula-- wears most of time 2-3 liters promethazine-dextromethorphan (Phenergan-DM) 6.25-15 MG/5ML syrup take 5 ml by mouth every 6 hours as needed revefenacin (Yupelri) 175 MCG/3ML nebulizer solution Take 3 mL by nebulization daily. 90 mL 4 spironolactone (Aldactone) 100 MG tablet Take 1 tablet (100 mg) by mouth daily. benzonatate (Tessalon) 200 MG capsule Take 1 capsule (200 mg) by mouth 3 (three) times a day as needed. (Patient not taking: Reported on 02/16/2025) clobetasol (Temovate) 0.05 % cream (Patient not taking: Reported on 02/16/2025) formoterol (Perforomist) 20 MCG/2ML nebulizer solution USE 1 VIAL IN NEBULIZER TWO TIMES A DAY (Patient not taking: Reported on 02/16/2025) 120 mL 3 No current facility-administered medications for this visit. Immunizations: Immunization History Administered Date(s) Administered Influenza, Unspecified 03/29/2017 Influenza, high-dose, quadrivalent 04/09/2017, 04/15/2018, 04/07/2019, 03/31/2020, 03/21/2021, 03/20/2022 Moderna COVID-19 Vaccine ([place] Stonemason) 12+ years 08/10/2020, 09/07/2020, 03/15/2021 Pfizer-BioNTech COVID-19 Vaccine ([place] Cap) 12+ years (kirti-sucrose) 11/28/2021 Pneumococcal 20-gonzales Conj Vaccine 07/06/2022 Pneumococcal Polysaccharide PPV23 08/06/2017 Rsv, Bivalent, Protein Subunit Rsvpref, Diluent Reconstituted, 0.5mL, PF 01/15/2024 Tdap 03/13/2019 Physical Examination: Vital Signs: Blood pressure 130/77, pulse 83, temperature 36.8 ??C (98.2 ??F), temperature source Oral, resp. rate 24, height 1.829 m (6'), weight 134 kg (295 lb 6.7 oz), SpO2 91%. Physical Exam Constitutional: General: He is not in acute distress. Appearance: Normal appearance. He is obese. He is not ill-appearing. HENT: Head: Normocephalic. Nose: Nose normal. Mouth/Throat: Mouth: Mucous membranes are moist. Cardiovascular: Rate and Rhythm: Normal rate and regular rhythm. Heart sounds: Normal heart sounds. Pulmonary: Effort: Pulmonary effort is normal. No respiratory distress. Breath sounds: Wheezing (faint, end expiratory) present. No decreased breath sounds, rhonchi or rales. Musculoskeletal: General: Normal range [...] the images in EMR. CXR, 2 view: === 02/16/25 === XR CHEST 2 VIEWS - Narrative - CLINICAL INDICATION: WORSENING DYSPNEA, COUGH TECHNIQUE: XR CHEST 2 VIEWS COMPARISON: January 06, 2024 CT chest FINDINGS: Stable cardiac silhouette and mediastinal contours. No overt effusions, pneumothorax, or consolidations. - Impression - No pneumonia. CRITICAL RESULT: No. COMMUNICATION: Per this written report. Preliminary report signed by Addi Mckee MD on 02/16/2025 3:54 PM By electronically signing this report, I, the attending physician, attest that I have personally reviewed the images/data for the above examination(s) and agree with the final edited report. Drafted by Addi Mckee MD on 02/16/2025 3:52 PM Final report signed by Robert Martínez MD on 02/16/2025 4:[address] chest: CT chest PE protocol 02/03/21: Emphysema. No evidence of pulmonary embolus. Bibasilar atelectatic changes. Faint GGO noted in lingula, nonspecific and associated with mild atelectatic change. Enlarged thyroid gland with narrowing of the trachea. CT chest done on 01/09/22 at [facility] showed: minimal chronic scarring at lung bases. [...] 3 LPM, O2 sat 95%, HR 88. How often do you cough?: 5 Coughs all the time Do you have phelgm (mucus) in your chest?: 3 Do you have tightness in your chest?: 3 Do you feel breathless walking up a hill or stairs?: 5 Very breathless Are you limited to doing activities at home?: 4 Are you confident in leaving home despite your lung condition?: 3 How are your energy levels?: 5 No energy at all Score: 31 Impression: 1. Moderate COPD (chronic obstructive pulmonary disease) (CMS/HCC) 2. Dyspnea on exertion 3. Diastolic dysfunction 4. Chronic respiratory failure with hypoxia 5. Centrilobular emphysema (CMS/HCC) 6. Physical deconditioning 7. Coronary artery disease involving tunica-biloxi heart, unspecified vessel or lesion type, unspecified whether angina present 8. Class 3 severe obesity with body mass index (BMI) of 40.0 to 44.9 in adult, unspecified obesity type, unspecified whether serious comorbidity present 9. History of COVID-19 Orders Placed This Encounter Procedures XR Chest 2 Views Standing Status: Future Number of Occurrences: 1 Expected Date: 02/16/2025 Expiration Date: 08/20/2026 Reason for exam:: WORSENING DYSPNEA, COUGH Release to patient in [facility]: Immediate [1] CBC and differential Standing Status: Future Number of Occurrences: 1 Expected Date: 02/16/2025 Expiration Date: 08/20/2026 Release to patient in [facility]: Immediate [1] Comprehensive metabolic panel Standing Status: Future Number of Occurrences: 1 Expected Date: 02/16/2025 Expiration Date: 08/20/2026 [facility] [1] N-Terminal Probnp, Plasma Standing Status: Future Number of Occurrences: 1 Expected Date: 02/16/2025 Expiration Date: 08/19/2026 Release to patient in [facility]: Immediate [1] IgE Standing Status: Future Number of Occurrences: 1 Expected Date: 02/16/2025 Expiration Date: 08/20/2026 Release to patient in [facility]: Immediate [1] Follow Up Pulm Standing Status: Future Expected Date: 06/18/2025 Expiration Date: 03/19/2026 Referral Priority: Routine Referral Type: Consultation Number of Visits Requested: 1 Discussion/Summary: Mr. Massey is a very pleasant 74 year old male, here for routine follow up of COPD. His PMHx includes allergic rhinitis, GERD, HTN, DMT2, BPH, obesity, CAD, diastolic dysfunction Came in today for his shortness of breath. There doesn't appear to be anything acute going on, he appears at baseline. His dyspnea is severe at baseline. We will do a trial of breztri 2 puffs BID with spacer, in place of his triple nebulizer therapy, and see if he responds better to this. I feel dyspnea is also attributed to untreated sleep apnea, diastolic dysfunction, fluid retention,obesity, physical deconditioning, etc. Will obtain CXR and labs today, and base these on if needs more steroids/antbx I will reach out to [facility] about RHC and echo results He unfortunately is not open to seeing sleep clinic for another attempt at NIPPV, even though I feel this intervention would be the most dramatic in improving his symptoms He denies a referral to local pulmonary rehab Will request LDCT done at [facility] over the summer Grade/stage/ATS: moderate mMRC/CAT: 31 Pulm rehab: encouraged to restart Tobacco use: quit in 2002 PFTs: Moderate obstruction, with evidence of air trapping. Moderately reduced DLCO. CT chest: mild emphysema, minimal chronic scarring at lung bases. Inhalers: triple inhaler therapy Orals: chronic azithromycin daily LTOT: 3 L at night and PRN. Multi ox performed in clinic however he did not have oxygen desaturation. Immunizations: Covid: UTD Flu: UTD PCV20: UTD RSV: UTD -Follows closely with Cardiology, Dr. Castro. Last RHC showed 20% blockage. Continue diuretics (lasix 80 mg and spironolactone). I feel his diastolic dysfunction is likely contributing to dyspnea. He has risk factors of АНДРЕЙ (obesity, wide neck circumference, etc), however he cannot tolerate wearing CPAP, despite going over cardiovascular risks, stroke, increase MVA, etc. FU 4 mo, or sooner if needed. Addendum: CXR WNL, CBC with mildly elevated WBC but this is likely due to recent steroid use. BNP WNL, CMP with elevated glucose but otherwise largely normal. IgE normal at 6. The patient was agreeable to the above plan, and all questions were answered accordingly. I personally spent a total of 30 minutes on this encounter. This time includes face to face with patient, counseling and discussion and/or coordination of care. Counseling and/or coordinating care dominated (more than 50%) the encounter. Signed: Lisa Drake APRN [facility] Pul[facility] Phone number: [phone] Fax number: [phone] documented in this encounter Plan of Treatment Upcoming Encounters Date Type Department Care Team (Late st Contact Info) Description 04/26/2025 2:40 PM EDT Office Visit [facility] Endocrinology [address] [place] [address] Renetta Mendoza APRN [address] [place] [id number] 05/04/2025 10:10 AM EST [facility] [address] [place] [address] Addi Drakena S, [employer]F [address] [place] [address] Scheduled Referrals Name Type Priority Associated Diagnoses Orde r Schedule Follow Up Pulm Outpatient Referral Routine Moderate COPD (chronic obstructive pulmonary disease) (CMS/HCC) Dyspnea on exertion Diastolic dysfunction Chronic respiratory failure with hypoxia Expected: 06/18/2025, Expires: 03/19/2026 documented as of this encounter Results * XR Chest 2 Views (02/16/2025 3:34 PM EDT) Anatomical Region Laterality Modality Chest Digital Radiogra phy Impressions 02/16/2025 4:13 PM EDT No pneumonia. CRITICAL RESULT: No. COMMUNICATION: Per this written report. Preliminary report signed by Addi Mckee MD on 02/16/2025 3:54 PM By electronically signing this report, I, the attending physician, attest that I have personally reviewed the images/data for the above examination(s) and agree with the final edited report. Drafted by Addi Mckee MD on 02/16/2025 3:52 PM Final report signed by Robert Martínez MD on 02/16/2025 4:13 PM Narrative 02/16/2025 4:13 PM EDT CLINICAL INDICATION: WORSENING DYSPNEA, COUGH TECHNIQUE: XR CHEST 2 VIEWS COMPARISON: January 06, 2024 CT chest FINDINGS: Stable cardiac silhouette and mediastinal contours. No overt effusions, pneumothorax, or consolidations. Procedure Note Robert Martínez MD - 02/16/2025 CLINICAL INDICATION: WORSENING DYSPNEA, COUGH TECHNIQUE: XR CHEST 2 VIEWS COMPARISON: January 06, 2024 CT chest FINDINGS: Stable cardiac silhouette and mediastinal contours. No overt effusions,pneumothorax, or consolidations. IMPRESSION: No pneumonia. CRITICAL RESULT: No. COMMUNICATION: Per this written report. Preliminary report signed by Addi Mckee MD on 02/16/2025 3:54 PM By electronically signing this report, I, the attending physician, attestthat I have personally reviewed the images/data for the aboveexamination(s) and agree with the final edited report. Drafted by Addi Mckee MD on 02/16/2025 3:52 PM Final report signed by Robert Martínez MD on 02/16/2025 4:13 PM Lisa Drake APRN IMG XR PROCEDURES Final R esult * IgE (02/16/2025 3:19 PM EDT) Immunoglobulin E 6 <=214 kU/L 02/20/20 6:03 AM EDT [facility] Blood Venous blood specimen / Unknown Venipuncture / Unknown 02/16/2025 3:19 PM EDT 02/16/2025 3:19 PM EDT Narrative [facility] ([facility]) - 02/19/2025 6:03 AM EDT REFERENCE INTERVAL: Immunoglobulin E, Serum Access complete set of age- and/or gender-specific reference intervals for this test in the [facility] Test Directory ([facility]). Performed By: [facility] [address] [place] [address] Braider Tender: Papito Schmitz MD, PhD CLIA Number: [id number] Lisa Drake APRN LAB BLOOD ORDERABLES Federica l Result [facility] ([facility]) [address] [place] [address] * N-Terminal Probnp, Plasma (02/16/2025 3:19 PM EDT) N-Terminal, PROBNP, Plasma 73 0 - 1,799 pg/mL 02/16/2025 5:28 PM EDT [facility] Blood Venous blood specimen / Unknown Venipuncture / Unknown 02/16/2025 3:19 PM EDT 02/16/2025 3:19 PM EDT us Lisa Drake APRN LAB BLOOD ORDERABLES Federica duncan Result [facility] [address] [place] [address] * (ABNORMAL) Comprehensive metabolic panel (02/16/2025 3:19 PM EDT) Glucose, Plasma 217(H) 74 - 99 mg/dL 02/16/2025 5:28 PM EDT [facility] BUN, Plasma 14 8 - 23 mg/dL 02/16/2025 5:28 PM EDT [facility] Creatinine, Plasma 0.82 0.70 - 1.20 mg/dL 02/16/2025 5:28 PM EDT [facility] BUN/Creatinine Ratio 17 02/16/2025 5:28 PM EDT [facility] Sodium, Plasma 137 136 - 145 mmol/L 02/16/2025 5:28 PM EDT [facility] Potassium, Plasma 4.0 3.6 - 4.9 mmol/L 02/16/2025 5:28 PM EDT [facility] Chloride, Plasma 100 97 - 107 mmol/L 02/16/2025 5:28 PM EDT [facility] CO2, Plasma 26 22 - 29 mmol/L 02/16/2025 5:28 PM EDT [facility] Anion Gap 11 6 - 16 mmol/L 02/16/2025 5:28 PM EDT [facility] Total Calcium, Plasma 8.7(L) 8.9 - 10.2 mg/dL 02/16/2025 5:28 PM EDT [facility] Total Protein 7.3 6.3 - 7.9 g/dL 02/16/2025 5:28 PM EDT [facility] Albumin, Plasma 3.8 3.5 - 5.2 g/dL 02/16/2025 5:28 PM EDT [facility] AST, Plasma 30 10 - 50 U/L 02/16/2025 5:28 PM EDT [facility] ALT, Plasma 25 10 - 50 U/L 02/16/2025 5:28 PM EDT [facility] Alkaline Phosphatase, Plasma 68 40 - 115 U/L 02/16/2025 5:28 PM EDT [facility] Total Bilirubin, Plasma 0.3 0.2 - 1.1 mg/dL 02/16/2025 5:28 PM EDT [facility] eGFRcr 91.0 mL/min/1.7 3m*2 02/16/2025 5:28 PM EDT [facility] Comment:Reported eGFRcr in m L/min/1.73m2 is based the CKD-EPI 2020 equation that does not use a race coefficient. Blood Venous blood specimen / Unknown Venipuncture / Unknown 02/16/2025 3:19 PM EDT 02/16/2025 3:19 PM EDT us Lisa Drake APRN LAB BLOOD ORDERABLES Federica duncan Result [facility] [address] [place] [address] * (ABNORMAL) CBC and differential (02/16/2025 3:19 PM EDT) WBC Count 12.29(H) 3.70 - 10.30 10*3/uL LAB HEMATOLOGY METHOD 02/16/2025 4:23 PM EDT [facility] RBC Count 5.25 4.60 - 6.10 10*6/uL LAB HEMATOLOGY METHOD 02/16/2025 4:23 PM EDT [facility] HGB 14.7 13.7 - 17.5 g/dL LAB HEMATOLOGY METHOD 02/16/2025 4:23 PM EDT [facility] HCT 47.5 40.0 - 51.0 % LAB HEMATOLOGY METHOD 02/16/2025 4:23 PM EDT [facility] Platelet Count 270 155 - 369 10*3/uL LAB HEMATOLOGY METHOD 02/16/2025 4:23 PM EDT [facility] MCV 91 79 - 98 fL LAB HEMATOLOGY METHOD 02/16/2025 4:23 PM EDT [facility] MCH 28.0 26.0 - 32.0 pg LAB HEMATOLOGY METHOD 02/16/2025 4:23 PM EDT [facility] MCHC 30.9 30.7 - 35.5 g/dL LAB HEMATOLOGY METHOD 02/16/2025 4:23 PM EDT [facility] RDW 14.5 11.5 - 14.5 % LAB HEMATOLOGY METHOD 02/16/2025 4:23 PM EDT [facility] MPV 10.4 8.8 - 12.5 fL LAB HEMATOLOGY METHOD 02/16/2025 4:23 PM EDT [facility] nRBC 0.0 <=0.0 per 100 WBCs LAB HEMATOLOGY METHOD 02/16/2025 4:23 PM EDT [facility] Differential Type Automated LAB HEMATOLOGY METHOD 02/16/2025 4:23 PM EDT [facility] Neutrophils % 77 % LAB HEMATOLOGY METHOD 02/16/2025 4:23 PM EDT [facility] Lymphocytes % 11 % LAB HEMATOLOGY METHOD 02/16/2025 4:23 PM EDT [facility] Monocytes % 6 % LAB HEMATOLOGY METHOD 02/16/2025 4:23 PM EDT [facility] Eosinophils % 2 % LAB HEMATOLOGY METHOD 02/16/2025 4:23 PM EDT [facility] Basophils % 1 % LAB HEMATOLOGY METHOD 02/16/2025 4:23 PM EDT [facility] Immature Granulocytes % 3 % LAB HEMATOLOGY METHOD 02/16/2025 4:23 PM EDT [facility] Neutrophils Absolute 9.44(H) 1.60 - 6.10 10*3/uL LAB HEMATOLOGY METHOD 02/16/2025 4:23 PM EDT [facility] Lymphocytes Absolute 1.34 1.20 - 3.90 10*3/uL LAB HEMATOLOGY METHOD 02/16/2025 4:23 PM EDT [facility] Monocytes Absolute 0.77 0.30 - 0.90 10*3/uL LAB HEMATOLOGY METHOD 02/16/2025 4:23 PM EDT [facility] Eosinophils Absolute 0.28 0.00 - 0.50 10*3/uL LAB HEMATOLOGY METHOD 02/16/2025 4:23 PM EDT [facility] Basophils Absolute 0.12(H) 0.00 - 0.10 10*3/uL LAB HEMATOLOGY METHOD 02/16/2025 4:23 PM EDT [facility] Immature Granulocytes Absolute 0.34(H) 0.00 - 0.06 10*3/uL LAB HEMATOLOGY METHOD 02/16/2025 4:23 PM EDT [facility] Blood Venous blood specimen / Unknown Venipuncture / Unknown 02/16/2025 3:19 PM EDT 02/16/2025 3:19 PM EDT Narrative [facility] - 02/16/2025 4:23 PM EDT Therapeutic decision making should be based on absolute values, rather than percentages. us Lisa Drake [facility] BLOOD ORDERABLES Federica l Result [facility] [address] [place] [address] documented in this encounter Visit Diagnoses Diagnosis Moderate COPD (chronic obstructive pulmonary disease) (CMS/HCC)- Primary Dyspnea on exertion Other dyspnea and respiratory abnormality Diastolic dysfunction Unspecified heart disease Chronic respiratory failure with hypoxia Centrilobular emphysema Physical deconditioning Muscular wasting and disuse atrophy, not elsewhere classified Coronary artery disease involving tunica-biloxi heart, unspecified vessel or lesion type, unspecified whether angina present Class 3 severe obesity with body mass index (BMI) of 40.0 to 44.9 in adult, unspecified obesity type, unspecified whether serious comorbidity present History of COVID-19 Dyspnea on exertion Other dyspnea and respiratory abnormality documented in this encounter Additional Health Concerns Assessment Noted Time PHQ-9 Depression Total Score: 0 09/29/19 25 2:28 PM EDT A fall risk assessment has been complete d for the patient 02/16/2025 2:03 PM EDT A Body Mass Index follow-up plan has been documented for the patient 02/16/2025 2:53 PM EDT documented as of this encounter Care Teams Back Roll Lathe Operator Relationship Specialty Start Date End Date Agus Moore MD [address] [place] [id number] PCP - General 11/11/20 documented as of this encounter
--- OUTSIDE RECORDS SUMMARY | 2025-02-16 15:26 | XMS_ITS | Encounter Summary ---
Author Organization Healthcare Address [address] [place] [address] Care Team Providers Care Internet Technology Manager Name Role Phone Agus Moore MD Primary Care Provider [phone] Encounter Details Date Type Department Care Team (Latest Contact Info) Description 02/16/2025 3:26 PM EDT - 02/16/2025 11:59 PM EDT [facility] [address], [address] [place] [address] Dyspnea on exertion Discharge Disposition: Home or Self Care Social History Tobacco Use Types Packs/Day Years [...] on file documented as of this encounter Functional Status * AUDIT-C Score Answer Date of Assessment Author 0 02/16/2025 2:00 PM Shikha Rdz * Question Answer Date of Assessment Author Q1: How often do you have a drink containing alcohol? Never 02/16/2025 2:00 PM Shikha Cho Q2: How many drinks containing alcohol do you have on a typical day when you are drinking? Patient does not drink 02/16/2025 2:00 PM Shikha Crowley Q3: How often do you have six or more drinks on one occasion? Never 02/16/2025 2:00 PM Shikha Cho documented as of this encounter Medications at Time of Discharge acetaminophen (Tylenol) 500 MG tablet Take 2 tablets (1,000 mg total) by mouth every 6 (six) hours if needed for pain. 50 tablet 09/18/2022 albuterol (Proventil) (2.5 MG/3ML) 0.083% nebulizer solutionIndicatio ns:Acute Exacerbation of COPD (Inactive) Take 3 mL by nebulization every 4 hours as needed for wheezing or shortness of breath. 360 mL 3 11/25/2024 albuterol (Ventolin HFA) 108 (90 Base) MCG/ACT inhalerIndication s:Chronic obstructive pulmonary disease, unspecified COPD type (CMS/HCC) Inhale 2 puffs every 4 hours as needed for wheezing or shortness of breath. 18 each 11 11/25/2024 aspirin 325 MG tablet Take 1 tablet (325 mg) by mouth daily. 10/21/2018 azithromycin (Zithromax) 250 MG tabletIndications :Chronic obstructive pulmonary disease, unspecified COPD type (CMS/HCC) Take 1 tablet by mouth daily. 30 tablet 11 12/23/2024 benzonatate (Tessalon) 200 MG capsule Take 1 capsule (200 mg) by mouth 3 (three) times a day as needed. 11/22/2023 brompheniramine-p seudoephedrine-DM 30-2-10 MG/5ML syrup take 5 mls by mouth every 6 hours as needed for 10 days 11/03/2024 Budeson-Glycopyrr ol-Formoterol (Breztri Aerosphere) 160-9-4.8 MCG/ACT aerosolIndication s:Moderate COPD (chronic obstructive pulmonary disease) (CMS/HCC) Inhale 2 puffs 2 times a day. USE WITH SPACER. RINSE MOUTH OUT AFTER USE. 10.7 g 11 02/16/2025 budesonide (Pulmicort) 0.5 MG/2ML nebulizer solutionIndicatio ns:Chronic obstructive pulmonary disease, unspecified COPD type (CMS/HCC) Take 2 mL by nebulization 2 times a day. Rinse mouth with water after use to reduce aftertaste and incidence of candidiasis. Do not swallow. 120 mL 3 11/03/2024 clobetasol (Temovate) 0.05 % cream 09/27/2022 Continuous Blood Gluc Sensor (FreeStyle Magdaleno 2 Sensor) misc Change sensor every 14 days Dx E11.9 6 each 3 10/18/2022 diclofenac (Voltaren) 1 % topical gel 11/29/2022 dulaglutide 4.5 MG/0.5ML solution auto-injector Inject 4.5 mg under the skin 1 (one) time per week. 6 mL 3 10/06/2024 fluticasone (Cutivate) 0.05 % cream Apply 1 application. topically 2 (two) times a day. formoterol (Perforomist) 20 MCG/2ML nebulizer solutionIndicatio ns:Chronic Obstructive Pulmonary Disease USE 1 VIAL IN NEBULIZER TWO TIMES A DAY 120 mL 3 12/28/2024 furosemide (Lasix) 80 MG tablet Take 1 tablet (80 mg) by mouth 2 (two) times a day. 01/02/2021 Gvoke HypoPen 1-Pack 1 MG/0.2ML solution auto-injectorIndi cations:Type 2 diabetes mellitus with diabetic polyneuropathy, with long-term current use of insulin Inject 1 mg under the skin if needed (extreme hypoglycemia). 0.2 mL 2 05/21/2024 Insulin Pen Needle (UltiCare Mini Pen Sycamore) 31G X 6 MM miscIndications:T ype 2 diabetes mellitus with diabetic polyneuropathy, with long-term current use of insulin USE TO INJECT INSULIN 3 TIMES PER DAY 300 each 3 05/21/2024 insulin regular (HumuLIN R U-500) 500 UNIT/ML CONCENTRATED injection penIndications:Ty pe 2 diabetes mellitus with other specified complication, with long-term current use of insulin Inject subcutaneous 150 units with breakfast, 130 units with lunch, 70 units with dinner 315 mL 3 12/03/2024 levothyroxine (Synthroid, Levoxyl) 137 MCG tablet take 1 tablet by mouth daily in the morning on an empty stomach 02/11/2025 metFORMIN (Glucophage) 1000 MG tabletIndications :Type 2 diabetes mellitus with diabetic polyneuropathy, with long-term current use of insulin Take 1 tablet (1,000 mg) by mouth 2 (two) times a day with meals. 180 tablet 3 05/21/2024 5 NON FORMULARY Take 2 each by mouth 1 (one) time each day. Equate Prostate 250mg oxygen (O2) gas Inhale continuously. via nasal canula-- wears most of time 2-3 liters promethazine-dext romethorphan (Phenergan-DM) 6.25-15 MG/5ML syrup take 5 ml by mouth every 6 hours as needed 02/15/2025 revefenacin (Yupelri) 175 MCG/3ML nebulizer solutionIndicatio ns:Moderate COPD (chronic obstructive pulmonary disease) (CMS/HCC),Centril obular emphysema Take 3 mL by nebulization daily. 90 mL 4 11/03/2024 spironolactone (Aldactone) 100 MG tablet Take 1 tablet (100 mg) by mouth daily. 06/21/2022 losartan (Cozaar) 25 MG tablet Take 1 tablet (25 mg) by mouth daily. 30 tablet 5 08/25/2024 5 documented as of this encounter Plan of Treatment Upcoming Encounters Date Type Department Care Team (Late st Contact Info) Description 04/26/2025 2:40 PM EDT Office Visit [facility] [address] [place] [address] Renetta Mendoza, SHEET METAL TECHNICIAN [address] [place] [id number] 05/04/2025 10:10 AM EST Office Visit [facility] [address] [place] [address] Lisa Drake S, SHEET METAL TECHNICIAN [address] [place] [address] documented as of this encounter Procedures Procedure Name Priority Date/Time Associated Diagnosis Comments XR CHEST 2 VIEWS Routine 02/16/2025 3:34 PM EDT Dyspnea on exertion documented in this encounter Results * XR Chest 2 [...] MD on 02/16/2025 4:13 PM Lisa Drake SHEET METAL TECHNICIAN IMG XR PROCEDURES Final R esult documented in this encounter Visit Diagnoses Diagnosis Dyspnea on exertion Other dyspnea and respiratory [...] documented as of this encounter Care Teams Internet Technology Manager Relationship Specialty Start Date End Date Agus Moore MD [address] [place] [id number] PCP - General 11/11/20 documented as of this encounter
--- OUTSIDE RECORDS SUMMARY | 2025-02-25 07:15 | XMS_ITS ---
Author Organization [facility] Address [address] [place] [facility] [address] [place] [phone] Care Team Providers Care Cylinder Machine Operator Name Role Phone Betina Moore Primary Care Provider [phone] Allergies No Known Allergies REASON FOR VISIT cough Medications Medication SIG (Take, Route, Frequency, Duration) Notes Start Date End Date Status Furosemide 80 MG 1 tab(s) orally once daily Active Lisinopril 5 MG 1 tablet Orally Once a day Active CPAP machine and supplies - 12/14 as directed Active Spironolactone 50 MG 1/2 tab(s) orally 1 time a day Active Nebulizer/Tubing/Mouthpie ce - as directed Active HYDROcodone Bit-Homatrop MBr 5-1.5 MG 1 tab(s) Orally every 6 hrs prn 10/22/2023 Active Clotrimazole-Betamethason e 1-0.05 % APPLY TOPICALLY TO THE AFFECTED AREA TWICE DAILY; Duration: 30 Active Ketoconazole 2 % 1 delmar applied topica lly 2 times a week Active metFORMIN HCl 1000 MG 1 tab(s) orally 2 times a day Active Trulicity 4.5 MG/0.5ML as directed Subcutaneous once a week Active EMBRACE BLOOD GLUCOSE METER 1 METER TEST TWICE A DAY OR DIRECTED 05/03/2017 Active Albuterol Sulfate (5 MG/ML) 0.5% 0.5 mL by nebulizer every 6 hours; Duration: 30 day(s) Active Aspirin 325 MG 1 tab(s) orally once a day Active Clarithromycin 500 MG 1 tablet Orally ev jemma 12 hrs; Duration: 10 day(s) 02/25/2025 Active Montelukast Sodium 10 MG 1 tablet Orally Once a day; Duration: 30 day(s) 02/25/2025 Active Losartan Potassium 25 MG 1 tablet Orally Once a day; Duration: 30 day(s) Active Budesonide 1 MG/2ML 1 mL Inhalation Twic e a day Active Yupelri 175 MCG/3ML 3 mL Inhalation Once a day Active HumuLIN R U-500 (CONCENTRATED) 500 UNIT/ML as directed Subcutaneous Active Albuterol Sulfate 108 (90 Base) MCG/ACT 1 puff as needed Inhalation every 4 hrs Active Mamhqdrgq-Tniuazxh-HF 30-1-20 MG/5ML 5 mL as needed Orally every 6 hrs; Duration: 10 days 10/13/2024 Not-Taking Methocarbamol 750 MG 1 tablet Orally benoit ry 4 hrs Active dexAMETHasone 4 MG 1 tablet Orally Two times a day; Duration: 5 days Not-Taking Promethazine-DM 6.25-15 MG/5ML 5 mL as needed Orally every 6 hrs Not-Taking Cefdinir 300 MG 1 cap(s) Orally Two times a day; Duration: 7 days Not-Taking Lisinopril 5 MG 1 tablet Orally Once a day; Duration: 90 days Active Levothyroxine Sodium 137 MCG 1 tablet in the morning on an empty stomach Orally Once a day; Duration: 90 days 02/11/2025 Active traMADol HCl 50 MG 1 tab(s) Orally q6h prn 025 Active Problems Problem Type SNOMED Code ICD Code Onset Dates Problem Status W/U Status Risk Notes Problem Chronic bronchitis (89369509) Chronic bronchitis (J42) Active confirmed Problem Seasonal allergy (950648155) Seasonal allergies (J30.2) Active confirmed Vital Signs Weight 294.6 lbs 02/25/2025 Blood pressure systolic 122 mm Hg 02/26/20 25 Blood pressure diastolic 60 mm Hg 025 Heart Rate 91 /min 02/25/2025 Height 71 in 02/25/2025 BMI 41.08 kg/m2 02/25/2025 Encounters Encounter Location Date Provider Diagnosis [facility] [address] [place] [id number] 02/25/2025 R Og Moore Chronic bronchitis J 42 and Seasonal allergies J30.2 Assessments Encounter Date Diagnosis (ICD Code) Assessment Notes Treatment Notes Treatment Clinical Notes Section Notes 02/25/2025 Chronic bronchitis (ICD-10 - J42) 02/25/2025 Seasonal allergies (ICD-10 - J30.2) I suspect a component of seasonal allergies causing his cough. 02/25/2025 Other Plan Of Treatment Medication Medication Name Sig Start Date Stop Date Notes Clarithromycin 500 MG 1 tablet Orally ev jemma 12 hrs; Duration: 10 day(s) 02/25/2025 Montelukast Sodium 10 MG 1 tablet Orally Once a day; Duration: 30 day(s) 02/25/2025 Treatment Notes Assessment Notes Seasonal allergies I suspect a componen t of seasonal allergies causing his cough. Next Appt Details Follow Up: prn, Reason: Provider Name:Betina Junior, 06/01/2025 09:00:00 AM, [address], [address] , [place], [place], [id number], Medications Administered Medication Instructions Date of Administration Dosage Notes Dexamethasone 02/25/2025 1 mL Progress Notes * DAVY LIAODOB: [birth year] (75 yo M)Acc No.[id number]:02/25/2025 Progress Notes Patient: DAVY GALLAGHER Provider: Betina Moore M.D. :1950 A ge:74 Y S ex:Male Date:02/25/2025 Address:[address] [place], [place] [id number] Subjective: * Chief Complaints: * 1 . Cough. * HPI: E NT/respiratory: 74 year old male presents with c/o cough P t sts he has been coughing a lot and sts he starts to cough so hard that he gets lightheaded. Cough is mostly dry nonproductive. He notes he has been sneezing more than usual. 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 He has tried Robitussin DM and Mucinex DM. * ROS: D ERMATOLOGY: no R sabina. n o H delta. G ASTROENTEROLOGY: no N ausea. n o V omiting. n o D iarrhea.? U ROLOGY: no D ifficulty urinating. n [...] 2023. 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 * [...] Orally q6h prn , Taking Levothyroxine Sodium 137 MCG Tablet 1 tablet in the morning on an empty stomach Orally Once a day , Not-Taking dexAMETHasone 4 MG Tablet 1 tablet Orally Two times a day , Not-Taking Cefdinir 300 MG Capsule 1 cap(s) Orally Two times a day , Not-Taking Promethazine-DM 6.25-15 MG/5ML Syrup 5 mL as needed Orally every 6 hrs , Not-Taking Eogugreuu-Djqhkvle-NG 30-1-20 MG/5ML Liquid 5 mL as needed Orally every 6 hrs , Medication List reviewed and reconciled with the patient * Allergies: N .K.D.A. Objective: * Vitals: W t: 294.6, Temp: 98.7, BP: 122/60, HR: 91, O2 Sat: 95% on RA, Nurse: antwon, Ht: 71, BMI:41.08. Assessment: * Assessment: 1. C hronic bronchitis - J42 (Primary) 2 . S easonal allergies - J30.2 Plan: * Treatment: 2. S easonal allergies Start Montelukast Sodium Tablet, 10 MG, 1 tablet, Orally, Once a day, 30 day(s), 30. Notes: I suspect a component of seasonal allergies causing his cough. * Therapeutic Injections: Dexamethasone : 1 mL (Route: Intramuscular) given by ANTWON Sanders on right gluteus (Chronic bronchitis) * Procedure Codes: G 2211 Complex e/m visit add on, J1100 Dexamethasone, 00436 ADMINISTRATION OF INJECTION, 1036F TOBACCO NON-USER, G8783 BP SCR PRFRM RCMDD DEFIND SCR INTVL, G8752 MOST RECENT SYSTOLIC BP < 140MM HG, G8754 MOST RECENT DIASTOLIC BP < 90MM HG * Follow Up: p rn * Images: Billing Information: * Visit Code: 75445 Office Visit, Est Pt., Level 3. Modifiers: 25 * Procedure Codes: G2211 Complex e/m visit add on. J1100 Dexamethasone. 68072 ADMINISTRATION OF INJECTION. 1036F TOBACCO NON-USER. G8783 BP SCR PRFRM RCMDD DEFIND SCR INTVL. G8752 MOST RECENT SYSTOLIC BP < 140MM HG. G8754 MOST RECENT DIASTOLIC BP < 90MM HG. * Electronic signature of Betina Moore MD on 03/26/2025 at 01:00 PM EDT Sign off status: Pending * Provider: Betina Moore M.D. Date: 0 02/25/2025 Generated for Gloria harrison/Vinnie/eTransmitting on: 0 03/26/2025 01:00 PM EDT History and Physical Notes * HPI (History of Present Illness) Category Sub-Category Detail Notes Category Not es ENT/respiratory cough Pt sts he has be en coughing a lot and sts he starts to cough so hard that he gets lightheaded. Cough is mostly dry nonproductive. He notes he has been sneezing more than usual. 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 He has tried Robitussin DM and Mucinex DM.
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
--- OUTSIDE RECORDS SUMMARY | 2025-03-26 12:58 | XMS_ITS | Clinical Summary ---
Author Organization [facility] Address [facility] [place] [facility] [place] [address] Care Team Providers Care Electrician Elevator Maintenance Name Role Phone Unavailable Primary Care Provider Unavailabl e Social History Tobacco Use Types Packs/Day Years Used Date Smoking Tobacco: Never Assessed Sex and Gender Information Value Date Recorded Sex Assigned at Not on file Legal Sex Male 7:11 PM EDT Gender Identity Not on file Sexual Orientation Not on file Plan of Treatment Health Maintenance Due Date Last Done Comments Hepatitis C Screening 1950 DTap,Tdap,and Td (1 - Tdap) 1959 Pneumococcal 50+ (1 of 1 - PCV) 1998 Shingrix (#1) 1998 RSV Vaccine (60+ or ) (1 - 1-dose 75+ series) 2023 Influenza Vaccine (#1) 2025 HPV Aged Out No longer eligi ble based on patient's age to complete this topic Meningococcal conjugate serenity nt 4 (MCV4) Aged Out No longer eligible b ased on patient's age to complete this topic RSV Immunization (<20 months) Aged Out No longer eligible based on patient's age to complete this topic
--- OUTSIDE RECORDS SUMMARY | 2025-03-26 12:58 | XMS_ITS | Encounter Summary ---
Author Organization Healthcare Address [address] [place] [address] Care Team Providers Care Forge Press Operator Name Role Phone Agus Moore MD Primary Care Provider [phone] Encounter Details Date Type Department Care Team (Late Contact Info) Description 01/06/2024 Orders Only External Location [address] [place] [address] Agus Moore MD [address] [place] [address] Social History Tobacco Use Types Packs/Day Years Used Date Smoking Tobacco: Former Cigarettes 2 45 1 - 2002 Passive Smoke Exposure: Never Smokeless Tobacco: Never Alcohol Use Standard Drinks/Week Comments Never 0 (1 standard drink = 0.6 oz pur e alcohol) PHQ-2 Answer Date Recorded Patient Health Questionnaire-2 Score 4 08/09/2023 PHQ-9 Answer Date Recorded Patient Health Questionnaire-9 Score 13 08/09/2023 PHQ-2A Answer Date Recorded Patient Health Questionnaire-2 Score 0 10/04/2022 Sex and Gender Information Value Date Recorded Sex Assigned at Not on file Legal Sex Male 6:33 PM EDT Gender Identity Not on file Sexual Orientation Not on file documented as of this encounter Plan of Treatment Upcoming Encounters Date Type Department Care Team (Late Contact Info) Description 04/26/2025 2:40 PM EDT Office Visit [facility] [address] [place] [address] Renetta Mendoza, SAMPLE SHOE INSPECTOR AND REWORKER [address] [facility] [address] [place] [address] 05/04/2025 10:10 AM EST Office Visit [facility] [address] [place] [address] Vidal Lisa S, SAMPLE SHOE INSPECTOR AND REWORKER [address] [place] [address] documented as of this encounter Procedures Procedure Name Priority Date/Time Associated Diagnosis Comments CT OUTSIDE IMAGES 01/06/2024 9:41 AM EDT documented in this encounter Results * CT OUTSIDE IMAGES (01/06/2024 9:41 AM EDT) Anatomical Region Laterality Modality Computed Tomogra phy 01/06/2024 9:41 AM EDT us Agus Moore MD IMG CT PROCEDURES Final Re sult documented in this encounter Visit Diagnoses Not on filedocumented in this encounter Additional Health Concerns Assessment Noted Time PHQ-9 Depression Total Score: 13 024 10:56 AM EST A fall risk assessment has been complete d for the patient 08/09/2023 10:56 AM EST A Body Mass Index follow-up plan has been documented for the patient 12/02/2023 3:08 PM EDT documented as of this encounter Care Teams Forge Press Operator Relationship Specialty Start Date End Date Agus Moore MD [address] [place] [address] PCP - General 11/11/20 documented as of this encounter
--- NOTE | 2025-03-26 12:59 | CT_ITS ---
FINAL REPORT TECHNIQUE: Axial images were obtained through the chest without contrast. Coronal and sagittal reconstructions obtained and reviewed. This study was performed with techniques to keep radiation doses as low as reasonably achievable, (ALARA). Individualized dose reduction techniques using automated exposure control or adjustment of mA and/or kV according to the patient's size were employed. CLINICAL HISTORY: Shortness of breath on exertion COMPARISON: 01/06/2024 FINDINGS: There are few tiny scattered mediastinal lymph nodes. The heart size is normal. There is no pericardial or pleural effusion. Mild changes of centrilobular emphysema are noted. There is mild scarring in both lungs. No discrete mass. No infiltrate. Limited images of the upper abdomen demonstrate moderate fatty infiltration of the liver. IMPRESSION: Centrilobular emphysema. Bilateral lung scarring. Reviewed, Interpreted and Dictated by Thomas Monge MD Transcribed by Hailey Maya Authenticated and [facility]
--- OUTSIDE RECORDS SUMMARY | 2025-03-26 12:59 | XMS_ITS | Encounter Summary ---
Author Organization Healthcare Address [address] [place] [address] Care Team Providers Care Roll Up Operator Name Role Phone Agus Moore MD Primary Care Provider +1- [phone] Encounter Details Date Type Department Care Team (Late st Contact Info) Description 02/03/2021 Orders Only External Location [address] [place] [id number] Provider, External Social History Tobacco Use Types Packs/Day Years Used Date Smoking Tobacco: Former Alcohol Use Standard Drinks/Week Comments Yes 0 (1 standard drink = 0.6 oz pur e alcohol) Sex and Gender Information Value Date Recorded Sex Assigned at Not on file Legal Sex Male 6:33 PM EDT Gender Identity Not on file Sexual Orientation Not on file documented as of this encounter Plan of Treatment Upcoming Encounters Date Type Department Care Team (Late st Contact Info) Description 04/26/2025 2:40 PM EDT Office Visit [facility] [address] [place] [address] Renetta Mendoza L, BONE PLANT SUPERVISOR [address] [place] [address] 05/04/2025 10:10 AM EST Office Visit [facility] [address] [place] [address] Lisa Drake S, BONE PLANT SUPERVISOR [address] [place] [address] documented as of this encounter Procedures Procedure Name Priority Date/Time Associated Diagnosis Comments CT OUTSIDE IMAGES 02/03/2021 10:34 AM EDT documented in this encounter Results * CT OUTSIDE IMAGES (02/03/2021 10:34 AM EDT) Anatomical Region Laterality Modality Computed Tomogra phy 02/03/2021 10:3 4 AM EDT us External Provider IMG CT PROCEDURES Final Result documented in this encounter Visit Diagnoses Not on filedocumented in this encounter Care Teams Roll Up Operator Relationship Specialty Start Date End Date Agus Moore MD [address] [place] [id number] PCP - General 11/11/20 documented as of this encounter
--- OUTSIDE RECORDS SUMMARY | 2025-03-26 12:59 | XMS_ITS | Encounter Summary ---
Author Organization Healthcare Address [address] [place] [address] Care Team Providers Care Divemaster Name Role Phone Agus Moore MD Primary Care Provider +1- [phone] Encounter Details Date Type Department Care Team (Late st Contact Info) Description 02/09/2020 Orders Only External Location [address] [place] [address] Provider, External Social History Tobacco Use Types [...] EDT Office Visit [facility] [address] [place] [phone] Renetta Mendoza L, DINING CAR CONDUCTOR [address] [place] [address] 05/04/2025 10:10 AM EST Office Visit [facility] [address] [place] [address] Lisa Drake S, DINING CAR CONDUCTOR [address] [place] [address] documented as of this encounter Procedures Procedure Name Priority Date/Time Associated Diagnosis Comments US OUTSIDE IMAGES 02/09/2020 6:47 AM EDT documented in this encounter Results * US OUTSIDE IMAGES (02/09/2020 6:47 AM EDT) Anatomical Region Laterality Modality Ultrasound 02/09/2020 6:47 AM EDT us External Provider IMG US PROCEDURES Final Result documented in this encounter Visit Diagnoses Not on filedocumented in this encounter Care Teams Divemaster Relationship Specialty Start Date End Date Agus Moore MD [address] [place] [id number] PCP - General 11/11/20 documented as of this encounter
--- OUTSIDE RECORDS SUMMARY | 2025-03-26 12:59 | XMS_ITS | Encounter Summary ---
Author Organization Healthcare Address [address] [place] [address] Care Team Providers Care Mold Chipper Name Role Phone Agus Moore MD Primary Care Provider +1- [phone] Encounter Details Date Type Department Care Team (Late st Contact Info) Description 02/01/2021 Orders Only External Location [address] [place] [phone] Provider, External Social History Tobacco Use Types [...] EDT Office Visit [facility] [address] [place] [address] Renetta Mendoza L, GLOBAL CHIEF EXPERIENCE OFFICER [address] [place] [address] 05/04/2025 10:10 AM EST [facility] [address] [place] [address] Lisa Drake S, GLOBAL CHIEF EXPERIENCE OFFICER [address] [place] [address] documented as of this encounter Procedures Procedure Name Priority Date/Time Associated Diagnosis Comments CT OUTSIDE IMAGES 02/01/2021 8:46 PM EDT documented in this encounter Results * CT OUTSIDE IMAGES (02/01/2021 8:46 PM EDT) Anatomical Region Laterality Modality Computed Tomogra phy 02/01/2021 8:46 PM EDT us External Provider IMG CT PROCEDURES Final Result documented in this encounter Visit Diagnoses Not on filedocumented in this encounter Care Teams Mold Chipper Relationship Specialty Start Date End Date Agus Moore MD [address] [place] [id number] PCP - General 11/11/20 documented as of this encounter
--- OUTSIDE RECORDS SUMMARY | 2025-03-26 12:59 | XMS_ITS | Encounter Summary ---
Author Organization [facility] Address [address] [place] [address] Care Team Providers Care Vacuum Metalizing Supervisor Name Role Phone Agus Moore MD Primary Care Provider +1- [phone] Reason for Referral * Imaging (Routine) - Authorized Specialty Diagnoses / Procedures Referred By Contac t Referred To Contact Diagnoses Dyspnea on exertion Moderate COPD (chronic obstructive pulmonary disease) (CMS/HCC) Procedures CT Chest wo IV Contrast Lisa Drake APRN [address] [address] Phone: tel: fax: Referral ID Status Reason Start Date Expiration Date V isits Requested Visits Authorized [id number] Authorized 03/19/2025 09/18/2026 1 1 Encounter Details Date Type Department Care Team (Late st Contact Info) Description 03/19/2025 Orders Only [facility] [address] [place] [address] Lisa Drake APRN [address] [facility] [address] [place] [address] Dyspnea on exertion (Primary Dx); Moderate COPD (chronic obstructive pulmonary disease) (CMS/HCC) Social History Tobacco Use Types Packs/Day Years [...] 04/26/2025 2:40 PM EDT Office Visit [facility] [address] [place] [address] Renetta Mendoza L, SUPERVISING FLOORPERSON [address] [place] [address] 05/04/2025 10:10 AM EST Office Visit [facility] [address] [place] [address] Lisa Drake S, SUPERVISING FLOORPERSON [address] [place] [address] Scheduled Orders Name Type Priority Associated Diagnoses Orde r Schedule CT Chest wo IV Contrast Imaging Routine Dyspnea on exertion Moderate COPD (chronic obstructive pulmonary disease) (CMS/HCC) 1 Occurrences starting 03/19/2025 until 09/20/2026 documented as of this encounter Visit Diagnoses Diagnosis Dyspnea on exertion- Primary Other dyspnea and respiratory abnormality Moderate COPD (chronic obstructive pulmonary disease) (CMS/HCC) documented in this encounter Additional Health Concerns Assessment Noted Time PHQ-9 Depression Total Score: 0 09/29/19 25 2:28 PM EDT A fall risk assessment has been complete d for the patient 02/16/2025 2:03 PM EDT A Body Mass Index follow-up plan has been documented for the patient 02/16/2025 2:53 PM EDT documented as of this encounter Care Teams Vacuum Metalizing Supervisor Relationship Specialty Start Date End Date Agus Moore MD [address] [place] [id number] PCP - General 11/11/20 documented as of this encounter
--- OUTSIDE RECORDS SUMMARY | 2025-03-26 12:59 | XMS_ITS | Encounter Summary ---
Author Organization Healthcare Address [address] [place] [address] Care Team Providers Care Roll Reclaimer Name Role Phone Agus Moore MD Primary Care Provider +1- [phone] Encounter Details Date Type Department Care Team (Late st Contact Info) Description 02/01/2021 Orders Only External Location [address] [place] [phone] Provider, External Social History Tobacco Use Types [...] EDT Office Visit [facility] [address] [place] [address] Renetta Mendoza L, DIRECTOR OF SALES MARKETING [address] [place] [address] 05/04/2025 10:10 AM EST Office Visit [facility] [address] [place] [address] Lisa Drake S, DIRECTOR OF SALES MARKETING [address] [place] [address] documented as of this encounter Procedures Procedure Name Priority Date/Time Associated Diagnosis Comments XR OUTSIDE IMAGES 02/01/2021 9:00 PM EDT documented in this encounter Results * XR OUTSIDE IMAGES (02/01/2021 9:00 PM EDT) Anatomical Region Laterality Modality Radiographic Deann ging 02/01/2021 9:00 PM EDT us External Provider IMG XR PROCEDURES Final Result documented in this encounter Visit Diagnoses Not on filedocumented in this encounter Care Teams Roll Reclaimer Relationship Specialty Start Date End Date Agus Moore MD [address] [place] [id number] PCP - General 11/11/20 documented as of this encounter
--- OUTSIDE RECORDS SUMMARY | 2025-03-26 12:59 | XMS_ITS | Encounter Summary ---
Author Organization Healthcare Address [address] [place] [address] Care Team Providers Care Guard Sergeant Name Role Phone Agus Moore MD Primary Care Provider +1- [phone] Encounter Details Date Type Department Care Team (Late st Contact Info) Description 02/09/2020 Orders Only External Location [address] [place] [address] Provider, External Social History Tobacco Use Types [...] EDT Office Visit [facility] [address] [place] [phone] Renetta Mendoza, RETREAD SUPERVISOR [address] [place] [address] 05/04/2025 10:10 AM EST Office Visit [facility] [address], [address] [place] [address] Lisa Drake S, RETREAD SUPERVISOR [address] [place] [address] documented as of this encounter Procedures Procedure Name Priority Date/Time Associated Diagnosis Comments NM OUTSIDE IMAGES 02/09/2020 7:15 AM EDT documented in this encounter Results * NM OUTSIDE IMAGES (02/09/2020 7:15 AM EDT) Anatomical Region Laterality Modality Nuclear Medicine 02/09/2020 7:15 AM EDT us External Provider IMG NM PROCEDURES Final Result documented in this encounter Visit Diagnoses Not on filedocumented in this encounter Care Teams Guard Sergeant Relationship Specialty Start Date End Date Agus Moore MD [address] [place] [id number] PCP - General 11/11/20 documented as of this encounter
--- OUTSIDE RECORDS SUMMARY | 2025-03-26 12:59 | XMS_ITS | Encounter Summary ---
Author Organization Healthcare Address [address] [place] [address] Care Team Providers Care Generalist Name Role Phone Agus Moore MD Primary Care Provider +1- [phone] Encounter Details Date Type Department Care Team (Late Contact Info) Description 03/17/2021 Orders Only External Location [address] [place] [address] Lisa Drake, PECAN PICKER [address] [facility] [address] [place] [address] Social History Tobacco Use Types Packs/Day Years Used Date Smoking Tobacco: Former Smokeless Tobacco: Never Alcohol Use Standard Drinks/Week Comments Yes 0 (1 standard drink = 0.6 oz pur e alcohol) PHQ-2 Answer Date Recorded Patient Health Questionnaire-2 Score 0 03/08/2021 Sex and Gender Information Value Date Recorded Sex Assigned at Not on file Legal Sex Male 6:33 PM EDT Gender Identity Not on file Sexual Orientation Not on file COVID-19 Exposure Response Date Recorded In the last month, have you been in contact with someone who was confirmed or suspected to have Coronavirus / COVID-19? No / Unsure 03/08/2021 10:58 AM EDT documented as of this encounter Plan of Treatment Upcoming Encounters Date Type Department Care Team (Late Contact Info) Description 04/26/2025 2:40 PM EDT Office Visit [facility] [address] [place] [phone] Renetta Mendoza, PECAN PICKER [address] [place] [address] 05/04/2025 10:10 AM EST Office Visit [facility] [address] [place] [address] Lisa Drake, NICOLE [address] [place] [address] documented as of this encounter Procedures Procedure Name Priority Date/Time Associated Diagnosis Comments CT OUTSIDE IMAGES 03/17/2021 8:30 AM EDT documented in this encounter Results * CT OUTSIDE IMAGES (03/17/2021 8:30 AM EDT) Anatomical Region Laterality Modality Computed Tomogra phy 03/17/2021 8:30 AM EDT us Lisa Drake PECAN PICKER IMG CT PROCEDURES Final R esult documented in this encounter Visit Diagnoses Not on filedocumented in this encounter Additional Health Concerns Assessment Noted Time A fall risk assessment has been complete d for the patient 03/08/2021 11:19 AM EDT documented as of this encounter Care Teams Generalist Relationship Specialty Start Date End Date Agus Moore MD [address] [place] [address] PCP - General 11/11/20 documented as of this encounter
--- OUTSIDE RECORDS SUMMARY | 2025-03-26 12:59 | XMS_ITS | Clinical Summary ---
Author Organization [facility] Address [address] [place] [address] Care Team Providers Care Divisional Merchandising Manager Name Role Phone Agus Moore MD Primary Care Provider [phone] Allergies No known active allergies Medications aspirin 325 MG tablet Take 1 tablet (325 mg) by mouth daily. 019 Active furosemide (Lasix) 80 MG tablet Take 1 tablet (80 mg) by mouth 2 (two) times a day. 021 Active spironolactone (Aldactone) 100 MG tablet Take 1 tablet (100 mg) by mouth daily. 022 Active oxygen (O2) gas Inhale continuously. via nasal canula-- wears most of time 2-3 liters Active fluticasone (Cutivate) 0.05 % cream Apply 1 application. topically 2 (two) times a day. Active NON FORMULARY Take 2 each by mouth 1 (one) time each day. Equate Prostate 250mg Active acetaminophen (Tylenol) 500 MG tablet Take 2 tablets (1,000 mg total) by mouth every 6 (six) hours if needed for pain. 50 tablet 023 Active Continuous Blood Gluc Sensor (FreeStyle Magdaleno 2 Sensor) misc Change sensor every 14 days Dx E11.9 6 each 3 023 Active clobetasol (Temovate) 0.05 % cream 023 Active diclofenac (Voltaren) 1 % topical gel 023 Active benzonatate (Tessalon) 200 MG capsule Take 1 capsule (200 mg) by mouth 3 (three) times a day as needed. 05/24/2 024 Active levothyroxine (Synthroid, Levoxyl) 150 MCG tabletIndications :Postoperative hypothyroidism Take 1 tablet (150 mcg) by mouth 1 (one) time each day. 90 tablet 3 024 Active metFORMIN (Glucophage) 1000 MG tabletIndications :Type 2 diabetes mellitus with diabetic polyneuropathy, with long-term current use of insulin Take 1 tablet (1,000 mg) by mouth 2 (two) times a day with meals. 180 tablet 3 024 2024 Active Insulin Pen Needle (UltiCare Mini Pen [place]) 31G X 6 MM miscIndications:T ype 2 diabetes mellitus with diabetic polyneuropathy, with long-term current use of insulin USE TO INJECT INSULIN 3 TIMES PER DAY 300 each 3 Active Gvoke HypoPen 1-Pack 1 MG/0.2ML solution auto-injectorIndi cations:Type 2 diabetes mellitus with diabetic polyneuropathy, with long-term current use of insulin Inject 1 mg under the skin if needed (extreme hypoglycemia). 0.2 mL 2 Active dulaglutide 4.5 MG/0.5ML solution auto-injector Inject 4.5 mg under the skin 1 (one) time per week. 6 mL 3 025 2025 Active budesonide (Pulmicort) 0.5 MG/2ML nebulizer solutionIndicatio ns:Chronic obstructive pulmonary disease, unspecified COPD type (CMS/HCC) Take 2 mL by nebulization 2 times a day. Rinse mouth with water after use to reduce aftertaste and incidence of candidiasis. Do not swallow. 120 mL 3 025 Active revefenacin (Yupelri) 175 MCG/3ML nebulizer solutionIndicatio ns:Moderate COPD (chronic obstructive pulmonary disease) (CMS/HCC),Centril obular emphysema Take 3 mL by nebulization daily. 90 mL 4 025 Active albuterol (Proventil) (2.5 MG/3ML) 0.083% nebulizer solutionIndicatio ns:Acute Exacerbation of COPD (Inactive) Take 3 mL by nebulization every 4 hours as needed for wheezing or shortness of breath. 360 mL 3 05/28/2 025 Active albuterol (Ventolin HFA) 108 (90 Base) MCG/ACT inhalerIndication s:Chronic obstructive pulmonary disease, unspecified COPD type (CMS/HCC) Inhale 2 puffs every 4 hours as needed for wheezing or shortness of breath. 18 each Active brompheniramine-p seudoephedrine-DM 30-2-10 MG/5ML syrup take 5 mls by mouth every 6 hours as needed for 10 days Active insulin regular (HumuLIN R U-500) 500 UNIT/ML CONCENTRATED injection penIndications:Ty pe 2 diabetes mellitus with other specified complication, with long-term current use of insulin Inject subcutaneous 150 units with breakfast, 130 units with lunch, 70 units with dinner 315 mL 3 Active azithromycin (Zithromax) 250 MG tabletIndications :Chronic obstructive pulmonary disease, unspecified COPD type (CMS/HCC) Take 1 tablet by mouth daily. 30 tablet 11 Active formoterol (Perforomist) 20 MCG/2ML nebulizer solutionIndicatio ns:Chronic Obstructive Pulmonary Disease USE 1 VIAL IN NEBULIZER TWO TIMES A DAY 120 mL 3 Active Additional Information Patient not taking.Reported on 02/16/2025 promethazine-dext romethorphan (Phenergan-DM) 6.25-15 MG/5ML syrup take 5 ml by mouth every 6 hours as needed Active levothyroxine (Synthroid, Levoxyl) 137 MCG tablet take 1 tablet by mouth daily in the morning on an empty stomach Active Budeson-Glycopyrr ol-Formoterol (Breztri Aerosphere) 160-9-4.8 MCG/ACT aerosolIndication s:Moderate COPD (chronic obstructive pulmonary disease) (CMS/HCC) Inhale 2 puffs 2 times a day. USE WITH SPACER. RINSE MOUTH OUT AFTER USE. 10.7 g Active losartan (Cozaar) 25 MG tablet TAKE 1 TABLET(25 MG) BY MOUTH DAILY 90 tablet Active losartan (Cozaar) 25 MG tablet TAKE 1 TABLET(25 MG) BY MOUTH DAILY 30 tablet 2024 Discontinued Active Problems Problem Noted Date Diagnosed Date Abnormal cardiovascular stress test 09/28/[address] 09/28/2024 Abnormal ECG 09/28/2024 Acquired hammertoe of right foot 09/28/2024 Acute on chronic respiratory failure 09/28/2024 Ankle sprain 09/28/2024 Atypical angina 09/28/2024 Callus of foot 09/28/2024 Diabetic foot 09/28/2024 Carotid bruit 09/28/2024 Ingrown toenail of left foot 09/28/2024 Chest wall contusion 09/28/2024 Diastolic dysfunction 09/28/2024 Dizziness 09/28/2024 Edema 09/28/2024 Elevated troponin 09/28/2024 Multiple falls 09/28/2024 Onychodystrophy 09/28/2024 Onychoincurvatum 09/28/2024 Onychomycosis 09/28/2024 АНДРЕЙ (obstructive sleep apnea) 09/28/2024 Pulmonary HTN 09/28/2024 Hypoglycemia 05/21/2024 Medication refill 05/21/2024 Postsurgical hypothyroidism 12/02/2023 Encounter for diabetic foot exam 09/26/2023 Shortness of breath 05/08/2023 Postoperative hypothyroidism 11/05/2022 Hypocalcemia 11/05/2022 CAD (coronary artery disease) 09/17/2022 Neuropathy 01/24/2022 Type 2 diabetes mellitus wit h diabetic polyneuropathy, with long-term current use of insulin 09/11/2021 Class 2 severe obesity due t o excess calories with serious comorbidity and body mass index (BMI) of 38.0 to 38.9 in adult 09/11/2021 Hypertension 09/11/2021 History of COVID-19 06/19/2021 Centrilobular emphysema 06/19/2021 Exercise hypoxemia 07/15/2019 Intermittent claudication 01/08/2018 Leg pain 01/07/2018 GERD (gastroesophageal reflux disease) 8 Nocturnal hypoxemia 05/22/2017 Allergic rhinitis 04/09/2017 COPD (chronic obstructive pulmonary disease) 03/2017 Obesity (BMI 30-39.9) 04/09/2017 Resolved Problems Problem Noted Date Diagnosed Date Resolved Date COVID-19 09/28/2024 03/21/2025 Pneumonia due to COVID-19 virus 09/28/2024 03/21/2025 Medication management 12/02/20232024 Acute cough 09/26/2023 03/21/2025 Other fatigue 11/05/2022 03/21/2025 Goiter 09/17/2022 05/08/2023 Thyroid goiter 07/17/2022 05/08/2023 Overview (07/17/2022): Added automatically from request for surgery [id number] Encounters Date Type Department Care Team Description 03/19/2025 Orders Only [facility] Medicine Specialties [address], [address] [place] [address] Lisa Drake, TANK TRUCK ENGINE MECHANIC Dyspnea on exertion (Primary Dx); Moderate COPD (chronic obstructive pulmonary disease) ([facility]) 03/19/2025 Telephone [facility] Medicine Specialties [address], [address] [place] [address] Lisa Drake, TANK TRUCK ENGINE MECHANIC 03/19/2025 Refill [facility] Endocrinology [address] [place] [address] Renetta Mendoza, TANK TRUCK ENGINE MECHANIC 03/18/2025 Telephone [facility] Medicine Specialties [address], [address] [place] [address] Lisa Drake, TANK TRUCK ENGINE MECHANIC 02/17/2025 Results Follow-Up [facility] Medicine Specialties [address], [address] [place] [address] Lisa Drake, TANK TRUCK ENGINE MECHANIC 02/17/2025 Refill [facility] Endocrinology [address] [place] [address] Renee Ramires, TANK TRUCK ENGINE MECHANIC 02/17/2025 Refill [facility] Endocrinology [address] [place] [address] Renee Ramires, TANK TRUCK ENGINE MECHANIC 02/16/2025 3:26 PM EDT - 02/16/2025 11:59 PM EDT Hospital Encounter [facility] Radiology [address] [place] [address] Dyspnea on exertion Discharge Disposition: Home or Self Care 02/16/2025 2:10 PM EDT Office Visit [facility] Medicine Specialties [address], [address] [place] [address] Lisa Drake, TANK TRUCK ENGINE MECHANIC Moderate COPD (chronic obstructive pulmonary disease) (CMS/HCC) (Primary Dx); Dyspnea on exertion; Diastolic dysfunction; Chronic respiratory failure with hypoxia; Centrilobular emphysema (CMS/HCC); Physical deconditioning; Coronary artery disease involving apache heart, unspecified vessel or lesion type, unspecified whether angina present; Class 3 severe obesity with body mass index (BMI) of 40.0 to 44.9 in adult, unspecified obesity type, unspecified whether serious comorbidity present; History of COVID-19 02/16/2025 Travel 02/11/2025 Telephone [facility] Endocrinology [address] [place] [address] Renetta Mendoza, TANK TRUCK ENGINE MECHANIC 02/09/2025 Telephone [facility] Medicine Specialties [address] [place] [address], [address] [place] [address] Lisa Drake, TANK TRUCK ENGINE MECHANIC 12/29/2024 Telephone [facility] [address] [place] [address] Jose Calixto, [facility] 12/28/2024 Refill [facility] Medicine Specialties [facility], [address] [place] [phone] Lisa Drake, TANK TRUCK ENGINE MECHANIC Chronic obstructive pulmonary disease, unspecified COPD type (CMS/HCC) from Last 3 Months Immunizations Immunization Administration Dates Next Due Influenza, Unspecified 03/29/2017 Influenza, high-dose, quadrivalent 03/20,03/21/2021,03/31/2020,04/07,04/15/2018,04/09/2017 Moderna COVID-19 Vaccine (Re d Cap) 12+ years 03/15/2021,09/07/2020,08/10/2020 [employer] COVID-19 Vac cine (Sommer Cap) 12+ years (kirti-sucrose) 11/28/2021 Pneumococcal 20-gonzales Conj Vaccine 07/06/2022 Pneumococcal Polysaccharide PPV23 08/06/2017 Rsv, Bivalent, Protein Subun it Rsvpref, Diluent Reconstituted, 0.5mL, PF 01/15/2024 Tdap 03/13/2019 Family History Medical History Relation Name Comments Diabetes Other Anesthesia problems Neg Hx Malig Hyperthermia Neg Hx Relation Name Status Comments Other Social History Tobacco Use Types Packs/Day Years Used Date Smoking Tobacco: Former Cigarettes 2 45 1 - 2002 Passive Smoke Exposure: Never Smokeless Tobacco: Never Tobacco Cessation:Counseling Given: Not Answered Alcohol Use Standard Drinks/Week Comments Never 0 [...] on file Sexual Orientation Not on file Last Filed Vital Signs Vital Sign Reading [...] Mass Index 40.07 02/16/2025 1:57 PM EDT Plan of Treatment Upcoming Encounters Date Type Department Care Team (Late st Contact Info) Description 04/26/2025 2:40 PM EDT Office Visit [facility] [address] [place] [phone] Renetta Mendoza, TANK TRUCK ENGINE MECHANIC [address] [place] [address] 05/04/2025 10:10 AM EST Office Visit [facility] Medicine Specialties [address], [address] [place] [address] Lisa Drake, TANK TRUCK ENGINE MECHANIC [address] [place] [address] Health Maintenance Due Date Last Done Comments [facility]-Hepatitis C Screening 1950 [facility]-Medicare Annual Wellness (AWV) 1950 [facility]-/Child/Adol SDOH Screenings 1950 Diabetes: Dental Exam 1958 [facility]- SDOH Screenings 1966 [facility]-Adult SDOH Screenings 1966 [facility]-Zoster Vaccines (1 of 2) 1998 [facility]-Diabetes: Hemoglobin A1C 11/24/2024 08/25/2024, 05/21/2024, 01/07/2024, Additional history exists [id number] Vaccine ( season) 2025 11/28/2021, 03/15/2021, 09/07/2020, Additional history exists [facility]-Influenza Vaccine (#1) 03/01/202503/20, 03/21/2021, 03/31/2020, Additional history exists [facility]-Depression Screening 09/28/2025 025, 09/28/2024, 12/20/2021 [facility]-DTaP,Tdap,and Td Vaccines (3 - Td or Tdap) 03/13/2029 03/13/2019, 11/17/2009 [facility]-Pneumococcal Vaccine: 50+ Years Completed 07/06/2022, 08/06/2017, 02/23/2016, Additional history exists [facility]-RSV Vaccine: 60+ Years or Completed 01/15/2024 [facility]-Obesity Intervention Completed 025, 12/03/2024, 12/03/2024, Additional history exists HPV Vaccines Aged Out No longer eligi ble based on patient's age to complete this topic [facility]-HIB Vaccines Aged Out No longer e ligible based on patient's age to complete this topic [facility]-Hepatitis A Vaccines Aged Out No longer eligible based on patient's age to complete this topic [facility]-IPV Vaccines Aged Out No longer e ligible based on patient's age to complete this topic [facility]-Rotavirus Vaccines Aged Out No lo nger eligible based on patient's age to complete this topic Procedures Procedure Name Priority Date/Time Associated Diagnosis Comments XR CHEST 2 VIEWS Routine 02/16/2025 3:34 PM EDT Dyspnea on exertion COMPREHENSIVE METABOLIC PANEL, PLASMA Routine 02/16/2025 3:19 PM EDT Moderate COPD (chronic obstructive pulmonary disease) (CMS/HCC) Dyspnea on exertion N-TERMINAL PROBNP, PLASMA Routine 02/16/2025 3:19 PM EDT Moderate COPD (chronic obstructive pulmonary disease) (CMS/HCC) Dyspnea on exertion IMMUNOGLOBULIN E Routine 02/16/2025 3:19 PM EDT Moderate COPD (chronic obstructive pulmonary disease) (CMS/HCC) Dyspnea on exertion CBC WITH AUTO DIFFERENTIAL Routine 02/16/2025 3:19 PM EDT Moderate COPD (chronic obstructive pulmonary disease) (CMS/HCC) Dyspnea on exertion POCT GLYCOSYLATED HEMOGLOBIN (HGB A1C) Routine 08/25/2024 12:40 PM EST Type 2 diabetes mellitus with diabetic polyneuropathy, with long-term current use of insulin (CMS/HCC) from Last 3 Months or Most Recently Relevant to Health Maintenance Results * XR Chest 2 Views (02/16/2025 [...] Robert Martínez MD on 02/16/2025 4:13 PM us Lisa Drake APRN IMG XR PROCEDURES Final R esult * N-Terminal Probnp, Plasma (02/16/2025 3:19 PM EDT) N-Terminal, PROBNP, Plasma 73 0 - 1,799 pg/mL 02/16/2025 5:28 PM EDT [facility] Blood Venous blood specimen / Unknown Venipuncture / Unknown 02/16/2025 3:19 PM EDT 02/16/2025 3:19 PM EDT us Lisa S Vidal TANK TRUCK ENGINE MECHANIC LAB BLOOD ORDERABLES Federica l Result [facility] [address] [place] [address] * (ABNORMAL) CBC and differential (02/16/2025 3:19 PM EDT) WBC Count 12.29(H) 3.70 - 10.30 10*3/uL LAB HEMATOLOGY METHOD 02/16/2025 4:23 PM EDT [facility] RBC Count 5.25 4.60 - 6.10 10*6/uL LAB HEMATOLOGY METHOD 02/16/2025 4:23 PM EDT [facility] HGB 14.7 13.7 - 17.5 g/dL LAB HEMATOLOGY METHOD 02/16/2025 4:23 PM EDT [facility] HCT 47.5 40.0 - 51.0 % LAB HEMATOLOGY METHOD 02/16/2025 4:23 PM EDT [facility] Platelet Count 270 155 - 369 10*3/uL LAB HEMATOLOGY METHOD 02/16/2025 4:23 PM EDT [facility] MCV 91 79 - 98 fL LAB HEMATOLOGY METHOD 02/16/2025 4:23 PM EDT [facility] MCH 28.0 26.0 - 32.0 pg LAB HEMATOLOGY METHOD 02/16/2025 4:23 PM EDT [facility] MCHC 30.9 30.7 - 35.5 g/dL LAB HEMATOLOGY METHOD 02/16/2025 4:23 PM EDT [facility] RDW 14.5 11.5 - 14.5 % LAB HEMATOLOGY METHOD 02/16/2025 4:23 PM EDT [facility] MPV 10.4 8.8 - 12.5 fL LAB HEMATOLOGY METHOD 02/16/2025 4:23 PM EDT [facility] nRBC 0.0 <=0.0 per 100 WBCs LAB HEMATOLOGY METHOD 02/16/2025 4:23 PM EDT [facility] Differential Type Automated LAB HEMATOLOGY METHOD 02/16/2025 4:23 PM EDT [facility] Neutrophils % 77 % LAB HEMATOLOGY METHOD 02/16/2025 4:23 PM EDT [facility] Lymphocytes % 11 % LAB HEMATOLOGY METHOD 02/16/2025 4:23 PM EDT [facility] Monocytes % 6 % LAB HEMATOLOGY METHOD 02/16/2025 4:23 PM EDT [facility] Eosinophils % 2 % LAB HEMATOLOGY METHOD 02/16/2025 4:23 PM EDT [facility] Basophils % 1 % LAB HEMATOLOGY METHOD 02/16/2025 4:23 PM EDT [facility] Immature Granulocytes % 3 % LAB HEMATOLOGY METHOD 02/16/2025 4:23 PM EDT [facility] Neutrophils Absolute 9.44(H) 1.60 - 6.10 10*3/uL LAB HEMATOLOGY METHOD 02/16/2025 4:23 PM EDT [facility] Lymphocytes Absolute 1.34 1.20 - 3.90 10*3/uL LAB HEMATOLOGY METHOD 02/16/2025 4:23 PM EDT [facility] Monocytes Absolute 0.77 0.30 - 0.90 10*3/uL LAB HEMATOLOGY METHOD 02/16/2025 4:23 PM EDT [facility] Eosinophils Absolute 0.28 0.00 - 0.50 10*3/uL LAB HEMATOLOGY METHOD 02/16/2025 4:23 PM EDT [facility] Basophils Absolute 0.12(H) 0.00 - 0.10 10*3/uL LAB HEMATOLOGY METHOD 02/16/2025 4:23 PM EDT [facility] Immature Granulocytes Absolute 0.34(H) 0.00 - 0.06 10*3/uL LAB HEMATOLOGY METHOD 02/16/2025 4:23 PM EDT [facility] Blood Venous blood specimen / Unknown Venipuncture / Unknown 02/16/2025 3:19 PM EDT 02/16/2025 3:19 PM EDT Narrative [facility] - 02/16/2025 4:23 PM EDT Therapeutic decision making should be based on absolute values, rather than percentages. Lisa Kaden Drake TANK TRUCK ENGINE MECHANIC LAB BLOOD ORDERABLES Federica l Result [facility] [address] [place] [address] * IgE (02/16/2025 3:19 PM EDT) Pathologist [facility] Immunoglobulin E 6 <=214 kU/L 02/20/20 6:03 AM EDT [facility] ([facility]) Blood Venous blood specimen / Unknown Venipuncture / Unknown 02/16/2025 3:19 PM EDT 02/16/2025 3:19 PM EDT Narrative [facility] [employer]) - 02/19/2025 6:03 AM EDT REFERENCE INTERVAL: Immunoglobulin E, Serum Access complete set of age- and/or gender-specific reference intervals for this test in the [facility] Test Directory ([employer]). Performed By: [facility] [address] [place] [address] Peer Financial Counselor: Papito Schmitz MD, PhD CLIA Number: [id number] Lisa Kaden Vidal TANK TRUCK ENGINE MECHANIC LAB BLOOD ORDERABLES Federica l Result Performing Organization Address City/[facility] Co de Phone Number [facility] [employer]) [address] [place] [address] * (ABNORMAL) Comprehensive metabolic panel (02/16/2025 3:19 PM EDT) Pathologist [facility] Glucose, Plasma 217(H) 74 - 99 mg/dL 02/16/2025 5:28 PM EDT [facility] BUN, Plasma 14 8 - 23 mg/dL 02/16/2025 5:28 PM EDT [facility] Creatinine, Plasma 0.82 0.70 - 1.20 mg/dL 02/16/2025 5:28 PM EDT [facility] BUN/Creatinine Ratio 17 02/16/2025 5:28 PM EDT [facility] Sodium, Plasma 137 136 - 145 mmol/L 02/16/2025 5:28 PM EDT [facility] Potassium, Plasma 4.0 3.6 - 4.9 mmol/L 02/16/2025 5:28 PM EDT [facility] Chloride, Plasma 100 97 - 107 mmol/L 02/16/2025 5:28 PM EDT [facility] CO2, Plasma 26 22 - 29 mmol/L 02/16/2025 5:28 PM EDT [facility] Anion Gap 11 6 - 16 mmol/L 02/16/2025 5:28 PM EDT [facility] Total Calcium, Plasma 8.7(L) 8.9 - 10.2 mg/dL 02/16/2025 5:28 PM EDT [facility] Total Protein 7.3 6.3 - 7.9 g/dL 02/16/2025 5:28 PM EDT [facility] Albumin, Plasma 3.8 3.5 - 5.2 g/dL 02/16/2025 5:28 PM EDT [facility] AST, Plasma 30 10 - 50 U/L 02/16/2025 5:28 PM EDT [facility] ALT, Plasma 25 10 - 50 U/L 02/16/2025 5:28 PM EDT [facility] Alkaline Phosphatase, Plasma 68 40 - 115 U/L 02/16/2025 5:28 PM EDT [facility] Total Bilirubin, Plasma 0.3 0.2 - 1.1 mg/dL 02/16/2025 5:28 PM EDT [facility] eGFRcr 91.0 mL/min/1.7 3m*2 02/16/2025 5:28 PM EDT [facility] Comment:Reported eGFRcr in m L/min/1.73m2 is based the CKD-EPI 2020 equation that does not use a race coefficient. Blood Venous blood specimen / Unknown Venipuncture / Unknown 02/16/2025 3:19 PM EDT 02/16/2025 3:19 PM EDT us Lisa Drake APRN LAB BLOOD ORDERABLES Federica duncan Result [facility] [address] [place] [address] * POCT glycosylated hemoglobin (Hb A1C) (08/25/2024 12:40 PM EST) POCT Hemoglobin A1C 7.6 <5.7% Non-Diabe tic % [facility] Kit Lot Number [id number] [facility] Kit Expiration Date 04/30/2026 [facility] Blood Venous blood specimen / Unknown 08/25/2024 12:40 PM EST us Renee Alfonso McNeil TANK TRUCK ENGINE MECHANIC POINT OF CARE TEST ENTER/ED IT ORDERABLES Final Result [facility] [address] [place] [address] from Last 3 Months or Most Recently Relevant to Health Maintenance Insurance [facility] Advance Directives * Full Code (Latest Code Status on File) Date Activated Date Inactivated Comments 09/17/2022 1:56 PM 09/18/2022 1:02 PM Question Answer Comments Patient has decision-making capacity? Yes Care Teams Divisional Merchandising Manager Relationship Specialty Start Date End Date Agus Moore MD [address] [facility] [address] [place] [address] [facility] - General 11/11/20
--- OUTSIDE RECORDS SUMMARY | 2025-03-26 12:59 | XMS_ITS | Encounter Summary ---
Author Organization Healthcare Address [address] [place] [address] Care Team Providers Care Striker Out Name Role Phone Agus Moore MD Primary Care Provider +- [phone] Encounter Details Date Type Department Care Team (Late Contact Info) Description 02/02/2021 Orders Only External Location [address] [place] [address] Eric Grullon MD [address] [id number] Social History Tobacco Use Types Packs/Day Years [...] 2:40 PM EDT Office Visit [facility] Endocrinology [address] [place] [phone] Renetta Mendoza, FISCAL ANALYST [address] [place] [phone] 05/04/2025 10:10 AM EST [facility] [address] [place] [phone] Lisa Drake S, FISCAL ANALYST [address] [place] [address] documented as of this encounter Procedures Procedure Name Priority Date/Time Associated Diagnosis Comments US OUTSIDE IMAGES 02/02/2021 6:38 AM EDT documented in this encounter Results * US OUTSIDE IMAGES (02/02/2021 6:38 AM EDT) Anatomical Region Laterality Modality Ultrasound 02/02/2021 6:38 AM EDT us Eric Grullon MD IMG US PROCEDURES Final Resu lt documented in this encounter Visit Diagnoses Not on filedocumented in this encounter Care Teams Striker Out Relationship Specialty Start Date End Date Agus Moore MD [address] [place] [address] PCP - General 11/11/20 documented as of this encounter
--- OUTSIDE RECORDS SUMMARY | 2025-03-26 13:00 | XMS_ITS | Encounter Summary ---
Author Organization [facility] Address [address] [place] [address] Care Team Providers Care Electronic Tech Name Role Phone Agus Moore MD Primary Care Provider +1- [phone] Encounter Details Date Type Department Care Team (Latest Contact Info) Description 02/16/2025 Travel Social History Tobacco Use Types Packs/Day Years [...] Never 02/16/2025 2:00 PM EDT Shikha Montano documented as of this encounter Plan of Treatment Upcoming Encounters Date Type Department Care Team (Late st Contact Info) Description 04/26/2025 2:40 PM EDT Office Visit [facility] Endocrinology [address] [phone] Renetta Mendoza, CLEARING TUB WORKER [address] [address] 05/04/2025 10:10 AM EST [facility] [address] [address] Lisa Drake S, CLEARING TUB WORKER [address] [address] documented as of this encounter Visit Diagnoses Not on filedocumented [...] documented as of this encounter Care Teams Electronic Tech Relationship Specialty Start Date End Date Agus Moore MD [address] [place] [id number] PCP - General 11/11/20 documented as of this encounter
--- OUTSIDE RECORDS SUMMARY | 2025-03-26 13:01 | XMS_ITS | Clinical Summary ---
Author Organization [facility] Address [address] [place] [id number] Care Team Providers Care Orthopedic Assistant Name Role Phone Unavailable Primary Care Provider Unavailabl e Source Comments This information has been disclosed to you from confidential records protectedfrom disclosure by state law. You shall make no further disclosure of thisinformation without the specific, written, and informed release of theindividual to whom it pertains, or as otherwise permitted by law. A generalauthorization for the release of medical or other information is not sufficientfor the purposes of therelease of HIV test results or diagnoses. [id number] Social History Tobacco Use Types Packs/Day Years Used Date Smoking Tobacco: Never Assessed Sex and Gender Information Value Date Recorded Sex Assigned at Not on file Legal Sex Male 4:12 PM EST Gender Identity Not on file Sexual Orientation Not on file Plan of Treatment Not on file Insurance MEDICARE A AND B AAR
--- OUTSIDE RECORDS SUMMARY | 2025-03-26 13:01 | XMS_ITS | Encounter Summary ---
Author Organization Healthcare Address [address] [place] [address] Care Team Providers Care Booster Pump Oiler Name Role Phone Agus Moore MD Primary Care Provider +1- [phone] Encounter Details Date Type Department Care Team (Late st Contact Info) Description 02/09/2025 [facility]phone [facility] [address], [address] [place] [address] Lisa Drake S, SAFE AND VAULT MECHANIC [address] [place] [address] Social History Tobacco Use Types Packs/Day Years [...] Shikha Montano documented as of this encounter Miscellaneous Notes * Telephone Encounter - Landy Stallings - 02/17/2025 1:55 PM EDT LVM advising patient [facility] did not have records of a CT Chest from 2024. Advised patient is ok to keep 10/6 CT scan and to call back with any questions or concerns. * Telephone Encounter - Cherri Love - 02/09/2025 4:01 PM EDT Clinical Concern/Question Reason for Call: Pt is on a bump for 6 and needs to see you sooner . He is having a hard time breathing Best contact number: [phone] (mobile) Optimal time of day to reach caller: ANYTIME Additional comments/information from caller: None Note: Please do not reply to this message. Follow-up communication and further actions as a result of this message need to be communicated with the patient directly, if the patient is not active onMyChart. If the patient is active on MyChart, they will receive notification of the communication/outcome via MyChart. documented in this encounter Plan of Treatment Upcoming Encounters Date Type Department Care Team (Late st Contact Info) Description 04/26/2025 2:40 PM EDT [facility] [address] [place] [phone] Renetta Mendoza, SAFE AND VAULT MECHANIC [address] [place] [address] 05/04/2025 10:10 AM EST [facility] [address], [address] [place] [address] Lisa Drake S, SAFE AND VAULT MECHANIC [address] [place] [address] documented as of this encounter Visit Diagnoses Not on filedocumented in this encounter Additional Health Concerns Assessment Noted Time PHQ-9 Depression Total Score: 0 09/29/19 25 2:28 PM EDT A fall risk assessment has been complete d for the patient 09/28/2024 2:29 PM EDT A Body Mass Index follow-up plan has been documented for the patient 12/03/2024 10:21 AM EDT documented as of this encounter Care Teams Booster Pump Oiler Relationship Specialty Start Date End Date Agus Moore MD [address] [place] [address] PCP - General 11/11/20 documented as of this encounter
--- OUTSIDE RECORDS SUMMARY | 2025-03-26 13:01 | XMS_ITS | Encounter Summary ---
Author Organization Healthcare Address [address] [place] [address] Care Team Providers Care Remote Sensing Analyst Name Role Phone Agus Moore MD Primary Care Provider +1- [phone] Encounter Details Date Type Department Care Team (Late st Contact Info) Description 02/11/2025 [facility]phone [facility] [address] [place] [address] Renetta Mendoza, MARINE SURVEYOR [address] [facility] [address] [place] [address] Social History Tobacco Use Types Packs/Day Years Used Date Smoking Tobacco: Former Cigarettes 2 45 1 - 2002 Passive Smoke Exposure: Never Smokeless Tobacco: Never Alcohol Use Standard Drinks/Week Comments Never 0 (1 standard drink = 0.6 oz pur e alcohol) PHQ-2 Answer Date Recorded Patient Health Questionnaire-2 Score 0 09/28/2024 PHQ-9 Answer Date Recorded Patient Health Questionnaire-9 Score 0 09/28/2024 PHQ-2A Answer Date Recorded Patient Health Questionnaire-2 Score 0 10/04/2022 Sex and Gender Information Value Date Recorded Sex Assigned at Not on file Legal Sex Male 6:33 PM EDT Gender Identity Not on file Sexual Orientation Not on file documented as of this encounter Miscellaneous Notes * Telephone Encounter - Nora Collins, ANNELE, RD - 02/12/2025 1:27 PM EDT Faxed 12/03/24 OV note per patient's request * Telephone Encounter - JEANETH BANERJEE - 02/12/2025 11:27 AM EDT Pt called back giving the OK to send OV to PCP. * Telephone Encounter - Nora Collins CDE, RD - 02/12/2025 9:15 AM EDT Called pt to inform that PCP was requesting last OV. No answer, left v/m requesting pt call back and let us know if this is okay to do. * Telephone Encounter - Heidi Anthony - 02/11/2025 4:14 PM EDT Paperwork/Documentation Request Patient Name: Robert Massey Type: Office note from 12/03/24 with Renetta Mendoza Due Date: 02/11/25 Send To: [facility] [phone] [facility] Best contact number: [phone] [place] Optimal time of day to reach caller: ANYTIME Additional comments/information from caller: Pt PCP requesting the ofc note for their records. Note: Please do not reply to this message. Follow-up communication and further actions as a result of this message need to be communicated with the patient directly, if the patient is not active onMyChart. If the patient is active on MyChart, they will receive notification of the communication/outcome via PrintEcot. documented in this encounter Plan of Treatment Upcoming Encounters Date Type Department Care Team (Late st Contact Info) Description 04/26/2025 2:40 PM EDT Office Visit [facility] Endocrinology [address] [place] [phone] Renetta Mendoza, MARINE SURVEYOR [address] [place] [phone] 05/04/2025 10:10 AM EST Office [facility] [address], [address] [place] [address] Lisa Drake S, MARINE SURVEYOR [address] [place] [address] documented as of this encounter [...] documented as of this encounter Care Teams Remote Sensing Analyst Relationship Specialty Start Date End Date Agus Moore MD [address] [place] [id number] PCP - General 11/11/20 documented as of this encounter
--- OUTSIDE RECORDS SUMMARY | 2025-03-26 13:01 | XMS_ITS | Encounter Summary ---
Author Organization [facility] Address [address] [place] [address] Care Team Providers Care Outcomes Specialist Name Role Phone Agus Moore MD Primary Care Provider +1- [phone] Reason for Visit * Reason Comments Med Refill Encounter Details Date Type Department Care Team (Late st Contact Info) Description 02/17/2025 Refill [facility] Endocrinology [address] [place] [address] Renee Ramires S, LITHOGRAPHIC ETCHER [address] [facility] [address] [place] [address] Social History Tobacco Use Types [...] encounter Miscellaneous Notes * Telephone Encounter - Marietta Cisneros PharmD - 02/17/2025 1:35 PM EDT 1 medication(s) has been approved per protocol. documented in this encounter Plan of Treatment Upcoming Encounters Date Type Department Care Team (Late st Contact Info) Description 04/26/2025 2:40 PM EDT Office Visit [facility] Endocrinology [address] [place] [phone] Renetta Mendoza, LITHOGRAPHIC ETCHER [address] [place] [address] 05/04/2025 10:10 AM EST Office Visit [facility] [address] [place] [address] Lisa Drake S, LITHOGRAPHIC ETCHER [address] [place] [address] documented as of this encounter [...] documented as of this encounter Care Teams Outcomes Specialist Relationship Specialty Start Date End Date Agus Moore MD [address] [place] [id number] PCP - General 11/11/20 documented as of this encounter
--- OUTSIDE RECORDS SUMMARY | 2025-03-26 13:01 | XMS_ITS | Encounter Summary ---
Author Organization [facility] Address [address] [place] [address] Care Team Providers Care Trading Manager Name Role Phone Agus Moore MD Primary Care Provider +1- [phone] Encounter Details Date Type Department Care Team (Late st Contact Info) Description 03/18/2025 Telephone [facility] [address], [address] [place] [address] Lisa Drake S, COMPLAINTS COORDINATOR [address] [place] [address] Social History Tobacco Use Types [...] encounter Miscellaneous Notes * Telephone Encounter - Katalina Crump - 03/18/2025 9:44 AM EDT Clinical Concern/Question Reason for Call: Called pt to r/s mikki gonzáles. First available is in September. Pt states that is too far out. Please call. Best contact number: [phone] (home) Optimal time of day to reach caller: [...] Description 04/26/2025 2:40 PM EDT [facility] [address] [place] [phone] Renetta Mendoza, COMPLAINTS COORDINATOR [address] [place] [phone] 05/04/2025 10:10 AM EST Office Visit [facility] [address], [address] [place] [address] Lisa Drake S, COMPLAINTS COORDINATOR [address] [place] [address] documented as of this encounter [...] documented as of this encounter Care Teams Trading Manager Relationship Specialty Start Date End Date Agus Moore MD [address] [place] [address] PCP - General 11/11/20 documented as of this encounter
--- OUTSIDE RECORDS SUMMARY | 2025-03-26 13:01 | XMS_ITS | Encounter Summary ---
Author Organization [facility] Address [address] [place] [address] Care Team Providers Care Rn Imcu Name Role Phone Agus Moore MD Primary Care Provider +1- [phone] Reason for Visit * Reason Comments Med Refill Encounter Details Date Type Department Care Team (Late st Contact Info) Description 02/17/2025 Refill [facility] Endocrinology [address] [place] [address] Renee Ramires S, TOOL TROUBLE SHOOTER [address] [facility] [address] [place] [address] Social History Tobacco Use Types [...] Encounter - Marietta Cisneros PharmD - 02/17/2025 3:35 PM EDT 1 medication(s) has been denied per protocol due to: Refill requested too soon documented in this encounter Plan of Treatment Upcoming Encounters Date Type Department Care Team (Late st Contact Info) Description 04/26/2025 2:40 PM EDT Office Visit [facility]ocr[facility] [address] [place] [phone] Renetta Mendoza, TOOL TROUBLE SHOOTER [address] [place] [address] 05/04/2025 10:10 AM EST Office Visit [facility] [address], [address] [place] [address] Lisa Drake S, TOOL TROUBLE SHOOTER [address] [place] [address] documented as of this encounter [...] documented as of this encounter Care Teams Rn Imcu Relationship Specialty Start Date End Date Agus Moore MD [address] [place] [address] PCP - General 11/11/20 documented as of this encounter
--- OUTSIDE RECORDS SUMMARY | 2025-03-26 13:01 | XMS_ITS | Encounter Summary ---
Author Organization [facility] Address [address] [place] [address] Care Team Providers Care Machine Rigger Name Role Phone Agus Moore MD Primary Care Provider +1- [phone] Encounter Details Date Type Department Care Team (Late st Contact Info) Description 02/17/2025 Results Follow-Up [facility] Medicine Specialties [address] [place] [address] Lisa Drake S, SOLAR INSTALLATION FOREMAN [address] [place] [address] Social History Tobacco Use Types [...] 2:40 PM EDT Office Visit [facility] Endocrinology [address] [place] [phone] Renetta Mendoza, SOLAR INSTALLATION FOREMAN [address] [place] [address] 05/04/2025 10:10 AM EST Office Visit [facility] [address] [place] [address] Lisa Drake S, SOLAR INSTALLATION FOREMAN [address] [place] [address] documented as of this encounter [...] documented as of this encounter Care Teams Machine Rigger Relationship Specialty Start Date End Date Agus Moore MD [address] [place] [address] PCP - General 11/11/20 documented as of this encounter
--- OUTSIDE RECORDS SUMMARY | 2025-03-26 13:01 | XMS_ITS | Encounter Summary ---
Author Organization [facility] Address [address] [place] [address] Care Team Providers Care Instructional Manager Name Role Phone Agus Moore MD Primary Care Provider +1- [phone] Encounter Details Date Type Department Care Team (Late st Contact Info) Description 03/19/2025 Telephone [place] [facility] [address] [place] [address] Lisa Drake S, TECHNICAL SERVICES MANAGER [address] [place] [address] Social History Tobacco Use Types [...] encounter Miscellaneous Notes * Telephone Encounter - Cherri Love - 03/19/2025 3:39 PM EDT Clinical Concern/Question Reason for Call: Pt's is calling to ask you to send an CT order to [facility] to [facility] the [facility] Best contact number: [phone] (mobile) Optimal time of day to reach caller: ANYTIME Additional comments/information from caller: None Note: Please do not reply to this message. Follow-up communication and further actions as a result of this message need to be communicated with the patient directly, if the patient is not active onMyChart. If the patient is active on MyChart, they will receive notification of the communication/outcome via AppChina. documented in this encounter Plan of Treatment Upcoming Encounters Date Type Department Care Team (Late st Contact Info) Description 04/26/2025 2:40 PM EDT Office Visit [facility] Endocrinology [address] [place] [address] Renetta Mendoza L, TECHNICAL SERVICES MANAGER [address] [place] [phone] 05/04/2025 10:10 AM EST Office Visit [facility] [address] [place] [address] Lisa Drake S, TECHNICAL SERVICES MANAGER [address] [place] [address] documented as of this encounter [...] documented as of this encounter Care Teams Instructional Manager Relationship Specialty Start Date End Date Agus Moore MD [address] [place] [id number] PCP - General 11/11/20 documented as of this encounter
--- OUTSIDE RECORDS SUMMARY | 2025-03-26 13:01 | XMS_ITS | Encounter Summary ---
Author Organization [facility] Address [address] [place] [address] Care Team Providers Care Cobol Programmer Name Role Phone Agus Moore MD Primary Care Provider +1- [phone] Reason for Visit * Reason Comments Med Refill Encounter Details Date Type Department Care Team (Late st Contact Info) Description 03/19/2025 Refill [facility] Endocrinology [address] [place] [address] Renetta Mendoza L, VACUUM SYSTEM TESTER [address] [facility] [address] [place] [address] Social History Tobacco Use Types [...] encounter Miscellaneous Notes * Telephone Encounter - Tereso Interiano, PharmD - 03/19/2025 9:46 AM EDT 1 medication(s) has been approved per protocol. documented in this encounter Plan of Treatment Upcoming Encounters Date Type Department Care Team (Late st Contact Info) Description 04/26/2025 2:40 PM EDT Office Visit [facility] Endocrinology [address] [place] [phone] Renetta Mendoza, VACUUM SYSTEM TESTER [address] [place] [phone] 05/04/2025 10:10 AM EST Office Visit [place] [facility] [address] [place] [address] Lisa Drake S, VACUUM SYSTEM TESTER [address] [place] [address] documented as of this encounter [...] documented as of this encounter Care Teams Cobol Programmer Relationship Specialty Start Date End Date Agus Moore MD [address] [place] [address] PCP - General 11/11/20 documented as of this encounter
== END 2025-03-26 23:59 | disposition home or self-care (01) ==
LOC: RAD 12:55
PROVIDERS: PCP Family Medicine; Visit Provider Nurse Practitioner
DX: J43.2 Centrilobular emphysema (principal); J98.4 Other disorders of lung; J44.9 Chronic obstructive pulmonary disease, unspecified
CPT/HCPCS: 71250